=== PATIENT | female | born 1955 | race American Indian/Alaskan Native ===

== ENCOUNTER 2017-04-30 23:07 | Emergency (ER) | payer MEDICAID ==
[2017-04-30 23:52] LABS: Basophils % (Auto) 0.4 % (0.0-1.8); Eosinophils % (Auto) 0.6 % (0.0-4.3); Hematocrit 35.9 % (30.3-42.9); Hemoglobin 11.6 gm/dl (10.1-14.3); Mean Corpuscular HGB Conc 32 % (30-34); Mean Corpuscular Volume 70 fl (79-97); Platelet Count 130 K/mm3 (140-440); Red Blood Count 5.13 M/mm3 (3.65-5.03); Red Cell Distribution Width 16.3 % (13.2-15.2); White Blood Count 8.1 K/mm3 (4.5-11.0)
[2017-04-30 23:55] LABS: Mean Corpuscular Hemoglobin 23 pg (28-32)
[2017-05-01 00:53] LABS: Urine Drugs of Abuse Note Disclamer
[2017-05-01 01:08] LABS: Bacteria,Urine 2+ /HPF (Negative); Bilirubin,Urine NEG (Negative); Blood,Urine SM (Negative); Ketones,Urine NEG (Negative); Leukocyte Esterase,Urine MOD (Negative); Nitrite,Urine NEG (Negative); Protein,Urine <15 mg/dL mg/dL (Negative); Urobilinogen,Urine < 2.0 mg/dL (<2.0)
[2017-05-01 02:08] LABS: Anion Gap 15 mmol/L; BUN/Creatinine Ratio 10; Blood Urea Nitrogen 10 mg/dL (7-17); Calcium 8.4 mg/dL (8.4-10.2); Carbon Dioxide 30 mmol/L (22-30); Chloride 98.5 mmol/L (98-107); Glucose 102 mg/dL (65-100); Sodium 139 mmol/L (137-145)
--- NOTE | 2017-05-01 06:18 | Emergency Department Report ---
ED Psych HPI - General Chief Complaint: Psych Stated Complaint: MH Time Seen by Provider: 05/01/17 00:14 Source: patient Mode of arrival: Ambulatory Limitations: No Limitations - History of Present Illness Initial Comments: 61-year-old female with a past medical history of Parkinson's, diabetes, hypertension, and psychiatric disorder presents to the hospital with complaints of suicidal thoughts and not liking her current residence. Patient was just discharged from [facility] last week into a new snf. Patient had a disagreement with the snf provider and no longer wants to live there. Patient has been having suicidal ideation and hallucinations for "a long time and for many years". No physical complaints reported. Voices tell her to overdose or to run into traffic. - Related Data Home Medications Medication Instructions Recorded Confirmed Last Taken Divalproex ER [Depakote ER] 250 mg PO HS 10/19/13 05/01/17 Unknown Divalproex ER [Depakote ER] 500 mg PO BID 10/19/13 05/01/17 Unknown Simvastatin [Zocor] 40 mg PO QHS 10/19/13 05/01/17 Unknown metFORMIN [Glucophage] 1,000 mg PO BID 10/19/13 05/01/17 Unknown Allergies Allergy/AdvReac Type Severity Reaction Status Date / Time No Known Allergies Allergy Unverified 10/19/13 16:47 ED Review of Systems ROS: Stated complaint: MH Other details as noted in HPI Comment: All other systems reviewed and negative Other: Constitutional: No fevers chills or weight loss Eyes: No eye pain visual changes or discharge ENT: No ear pain or throat pain Neck: Denies pain Respiratory: Denies cough wheezing shortness of breath Cardiovascular: Denies chest pain, palpitations, syncope GI: Denies abdominal pain, nausea, vomiting, diarrhea Musculoskeletal: Denies back pain Skin: Denies rash, lesions, erythema Neurologic: Denies headache, numbness, weakness. Chronic tremor Psychiatric: As per HPI ED Past Medical Hx - Past Medical History Previous Medical History?: Yes Hx Hypertension: Yes Hx Diabetes: Yes Hx Psychiatric Treatment: Yes Additional medical history: high cholesterol - Social History Smoking Status: Never Smoker Substance Use Type: None - Medications Home Medications: Home Medications Medication Instructions Recorded Confirmed Last Taken Type Divalproex ER [Depakote ER] 250 mg PO HS 10/19/13 05/01/17 Unknown History Divalproex ER [Depakote ER] 500 mg PO BID 10/19/13 05/01/17 Unknown History Simvastatin [Zocor] 40 mg PO QHS 10/19/13 05/01/17 Unknown History metFORMIN [Glucophage] 1,000 mg PO BID 10/19/13 05/01/17 Unknown History ED Physical Exam - General Limitations: Other - Other Other exam information: General: No limitations, patient is alert in no acute distress Head exam: Atraumatic, normocephalic Eyes exam: Normal appearance ENT: Moist mucous membrane, normal oropharynx Neck exam: Normal inspection, full range of motion, no meningismus nontender Respiratory exam: Clear to auscultation bilateral, no wheezes, rales, crackles Cardiovascular: Normal rate and rhythm, normal heart sounds Abdomen: Soft, nondistended, and nontender, with normal bowel sounds, no rebound, or guarding Extremity: Full range of motion normal inspection no deformity Back: Normal Inspection, full range of motion, no tenderness Neurologic: Alert, oriented x3, cranial nerves intact, no motor or sensory deficit. Intention tremor noted Psychiatric: Cooperative Skin: Warm, dry, intact ED Course Vital Signs 04/30/17 05/01/17 05/01/17 23:19 08:35 19:05 Temperature 98.4 F 98.1 F 98.2 F Pulse Rate 84 86 72 Respiratory 18 18 18 Rate Blood Pressure 143/88 115/68 121/63 [Left] O2 Sat by Pulse 96 97 97 Oximetry - Reevaluation(s) Reevaluation #1: 05/01/17 06:20 We'll continue current meds awaiting mental health - Consultations Consultation #1: 05/01/17 06:20 Mental health evaluation pending ED Medical Decision Making - Lab Data Result diagrams: 04/30/17 23:21 04/30/17 23:21 Lab Results 04/30/17 04/30/17 04/30/17 Range/Units 00:47 23:21 23:21 WBC 8.1 (4.5-11.0) K/mm3 RBC 5.13 H (3.65-5.03) M/mm3 Hgb 11.6 (10.1-14.3) gm/dl Hct 35.9 (30.3-42.9) % MCV 70 L (79-97) fl MCH 23 L (28-32) pg MCHC 32 (30-34) % RDW 16.3 H (13.2-15.2) % Plt Count 130 L (140-440) K/mm3 Lymph % (Auto) 38.3 H (13.4-35.0) % Perry % (Auto) 10.7 H (0.0-7.3) % Eos % (Auto) 0.6 (0.0-4.3) % Baso % (Auto) 0.4 (0.0-1.8) % Lymph # 3.1 (1.2-5.4) K/mm3 Perry # 0.9 H (0.0-0.8) K/mm3 Eos # 0.0 (0.0-0.4) K/mm3 Baso # 0.0 (0.0-0.1) K/mm3 Seg Neutrophils % 50.0 (40.0-70.0) % Seg Neutrophils # 4.1 (1.8-7.7) K/mm3 Sodium 139 (137-145) mmol/L Potassium 4.0 (3.6-5.0) mmol/L Chloride 98.5 (98-107) mmol/L Carbon Dioxide 30 (22-30) mmol/L Anion Gap 15 mmol/L BUN 10 (7-17) mg/dL Creatinine 1.0 (0.7-1.2) mg/dL Estimated GFR > 60 ml/min BUN/Creatinine Ratio 10 % Glucose 102 H (65-100) mg/dL Calcium 8.4 (8.4-10.2) mg/dL Urine Color Straw (Yellow) Urine Turbidity Clear (Clear) Urine pH 7.0 (5.0-7.0) Ur Specific Haigler 1.003 (1.003-1.030) Urine Protein <15 mg/dl (Negative) mg/dL Urine Glucose (UA) Neg (Negative) mg/dL Urine Ketones Neg (Negative) mg/dL Urine Blood Sm (Negative) Urine Nitrite Neg (Negative) Urine Bilirubin Neg (Negative) Urine Urobilinogen < 2.0 (<2.0) mg/dL Ur Leukocyte Esterase Mod (Negative) Urine WBC (Auto) 6.0 (0.0-6.0) /HPF Urine RBC (Auto) 3.0 (0.0-6.0) /HPF U Epithel Cells (Auto) 1.0 (0-13.0) /HPF Urine Bacteria (Auto) 2+ (Negative) /HPF - Medical Decision Making Patient does not appear to have an acute psychiatric condition. Symptoms are chronic and ongoing and seems to be exacerbated by the fact that she does not want to live her current snf. Mental health evaluation pending to determine if a 1013 is necessary - Differential Diagnosis psychosis, secondary gain, suicidal ideation, hallucinations Critical Care Time: No Critical care attestation.: If time is entered above; I have spent that time in minutes in the direct care of this critically ill patient, excluding procedure time. ED Disposition Clinical Impression: Suicidal ideation, Hallucination, Medical clearance for psychiatric admission Disposition: DC/TX-65 PSY HOSP/PSY UNIT Is pt being admited?: No Condition: Stable Time of Disposition: 06:21 (awaiting eval)
[2017-05-01] MEDS ORDERED: ATIVAN ONE (07:32)
[2017-05-01] MEDS: ATIVAN PO ONE (07:48)
--- NOTE | 2017-05-01 14:48 | Consultation ---
History of Present Illness - Reason for Consult Consult date: 05/01/17 Reason for consult: Mental Health Evaluation Requesting physician: LUAN RYAN - Chief Complaint Chief complaint: "Hello" - History of Present Psychiatric Illness 61-year-old female with a past medical history of diabetes, hypertension, and a psychiatric disorder presents to the hospital with complaints of suicidal thoughts and having a problem with her current residence. Today patient is calm and cooperative during the assessment. She stated hearing voices telling her to kill herself. She stated that she would overdose on pills. She cannot confirm or deny past suicide attempts. Per her sister Ms Leia Schmitz at [phone] , she stated that her sister the patient has never been suicidal. She stated that her sister has a mental health dx of Schizophrenia and Bipolar DO. The patient would not elaborate on why she does not want to return to her current long term. She did deny any abuse at this long term. She denies HI's and VH' s. She denies sleep disturbance and a poor appetite. She denies recreational drug use and alcohol consumption (etoh). Per collateral information from Nuno Sena RN and Macy Wu from the [facility], the patient takes Depakote, receive the monthly Invega injection , and Benadryl. Her last injection was 04/30/2017. Also, she takes Metformin. The patient have not taken her PO medications in 2 days. Ms Leia Schmitz would like for her sister to be discharged to her residence when stable. Medications and Allergies Allergies Allergy/AdvReac Type Severity Reaction Status Date / Time No Known Allergies Allergy Unverified 10/19/13 16:47 Home Medications Medication Instructions Recorded Confirmed Last Taken Type Divalproex ER [Depakote ER] 250 mg PO HS 10/19/13 05/01/17 Unknown History Divalproex ER [Depakote ER] 500 mg PO BID 10/19/13 05/01/17 Unknown History Simvastatin [Zocor] 40 mg PO QHS 10/19/13 05/01/17 Unknown History metFORMIN [Glucophage] 1,000 mg PO BID 10/19/13 05/01/17 Unknown History Past psychiatric history - Past Medical History Past Medical History: diabetes Past Surgical History: No surgical history - past Psychiatric treatment and history Psych: Schizophrenia psychiatric treatment history: Collateral Information from Leia Schmitz the patient's sister - Multiple inpatient psy setting. Their mother had Bipolar DO. - Social History Social history: other (Reside at a long term) Mental Status Exam - Vital signs Last Vital Signs Temp 98.1 F 05/01/17 08:35 Pulse 86 05/01/17 08:35 Resp 18 05/01/17 08:35 BP 115/68 05/01/17 08:35 Pulse Ox 97 05/01/17 08:35 - Exam Narrative exam: MSE: Appearance: calm, cooperative Behavior: regular eye contact Speech: regular rate and tone Mood: "okay" Affect: labile Thought Process: circumstantial Thought Content: denies HI's and VH's Motor Activity: ambulatory, moderate tremors Cognition: A/O x3 Insight: limited Judgment: limited Results Result Diagrams: 04/30/17 23:21 04/30/17 23:21 Abnormal lab results 04/30/17 04/30/17 Range/Units 23:21 23:21 RBC 5.13 H (3.65-5.03) M/mm3 MCV 70 L (79-97) fl MCH 23 L (28-32) pg RDW 16.3 H (13.2-15.2) % Plt Count 130 L (140-440) K/mm3 Lymph % (Auto) 38.3 H (13.4-35.0) % Lamar % (Auto) 10.7 H (0.0-7.3) % Lamar # 0.9 H (0.0-0.8) K/mm3 Glucose 102 H (65-100) mg/dL All other labs normal. Assessment and Plan Assessment and plan: Impression: Per collateral information - Dx of Schizophrenia/Bipolar DO. Unspecified Mood DO with psy features. Today patient is calm and cooperative during the assessment. Patient is experiencing AH's. Patient endorsing SI's. Moderate tremors noted. DDx: R/O MDD, R/O Schizoaffective DO Recommendation/Plan: Continue 1013 with placement to inpatient psy services. Start Depakote 500 mg PO BID for mood and Benadryl 25 mg PO HS for EPS prevention. Patient receives the monthly Invega injection (234 mg). Her last injection 04/30/2017 by the [facility]. Macy Dyer of the [facility] can be reached at [phone].
[2017-05-01 15:54] LABS: Alkaline Phosphatase 70 units/L (35-129)
[2017-05-01 16:10] LABS: Alanine Aminotransferase 7 units/L (7-56)
[2017-05-01] MEDS: BENADRYL PO SCH (22:05)
[2017-05-01 22:27] VITALS: BP 121/63
== END 2017-05-01 22:33 ==
LOC: EEVIPCON 23:07 → ED 23:07
DX: R45.851 Suicidal ideations (principal); R44.3 Hallucinations, unspecified; I10 Essential (primary) hypertension; E11.9 Type 2 diabetes mellitus without complications; E78.00 Pure hypercholesterolemia, unspecified
CPT/HCPCS: 36415; 80048; 80164; 80307; 81001; 82962; 84075; 84450; 84460; 85025; 99285; G0480; 80320

== ENCOUNTER 2017-06-16 15:14 | Emergency (ER) | payer MEDICAID ==
[2017-06-16 15:47] LABS: Basophils % (Auto) 0.7 % (0.0-1.8); Eosinophils % (Auto) 0.8 % (0.0-4.3); Hematocrit 38.1 % (30.3-42.9); Hemoglobin 12.1 gm/dl (10.1-14.3); Mean Corpuscular HGB Conc 32 % (30-34); Mean Corpuscular Volume 70 fl (79-97); Platelet Count 229 K/mm3 (140-440); Red Blood Count 5.41 M/mm3 (3.65-5.03); Red Cell Distribution Width 17.1 % (13.2-15.2); White Blood Count 8.4 K/mm3 (4.5-11.0)
[2017-06-16 15:54] LABS: Mean Corpuscular Hemoglobin 22 pg (28-32)
[2017-06-16 16:08] LABS: Anion Gap 18 mmol/L; BUN/Creatinine Ratio 16; Blood Urea Nitrogen 13 mg/dL (7-17); Calcium 9.1 mg/dL (8.4-10.2); Carbon Dioxide 25 mmol/L (22-30); Chloride 102.2 mmol/L (98-107); Glucose 81 mg/dL (65-100); Potassium 4.2 mmol/L (3.6-5.0); Sodium 141 mmol/L (137-145)
[2017-06-16 16:09] LABS: Urine Drugs of Abuse Note Disclamer
[2017-06-16 16:18] LABS: Bacteria,Urine 1+ /HPF (Negative); Bilirubin,Urine NEG (Negative); Blood,Urine NEG (Negative); Ketones,Urine NEG (Negative); Leukocyte Esterase,Urine NEG (Negative); Nitrite,Urine NEG (Negative); Protein,Urine <15 mg/dL mg/dL (Negative); Urobilinogen,Urine < 2.0 mg/dL (<2.0); WBC,Urine < 1.0 /HPF (0.0-6.0)
[2017-06-16] MEDS ORDERED: ATIVAN IM ONE (20:13)
--- NOTE | 2017-06-16 20:15 | Emergency Department Report ---
ED Psych HPI - General Chief Complaint: Psych Stated Complaint: MENTAL HEALTH EVAUATION Time Seen by Provider: 06/16/17 19:16 Source: patient Mode of arrival: Ambulatory - History of Present Illness MD Complaint: other (hearing voices telling her to harm herself acutely psychotic) -: unknown Associated Psychiatric Symptoms: depression, racing thoughts, auditory hallucinations, delusions Quality: getting worse Improves With: none - Related Data Home Medications Medication Instructions Recorded Confirmed Last Taken Divalproex ER [Depakote ER] 250 mg PO HS 10/19/13 06/16/17 Unknown Divalproex ER [Depakote ER] 500 mg PO BID 10/19/13 06/16/17 Unknown Simvastatin [Zocor] 40 mg PO QHS 10/19/13 06/16/17 Unknown metFORMIN [Glucophage] 1,000 mg PO BID 10/19/13 06/16/17 Unknown Allergies Allergy/AdvReac Type Severity Reaction Status Date / Time No Known Allergies Allergy Verified 06/16/17 15:18 ED Review of Systems ROS: Stated complaint: MENTAL HEALTH EVAUATION Other details as noted in HPI Comment: All other systems reviewed and negative Constitutional: no symptoms reported Respiratory: no symptoms reported Cardiovascular: denies: chest pain, edema, syncope, paroxysmal nocturnal dyspnea Gastrointestinal: denies: diarrhea, hematochezia Genitourinary: denies: frequency, hematuria, discharge ED Past Medical Hx - Past Medical History Hx Hypertension: Yes Hx Diabetes: Yes Hx Psychiatric Treatment: Yes Additional medical history: high cholesterol - Social History Smoking Status: Never Smoker Substance Use Type: None - Medications Home Medications: Home Medications Medication Instructions Recorded Confirmed Last Taken Type Divalproex ER [Depakote ER] 250 mg PO HS 10/19/13 06/16/17 Unknown History Divalproex ER [Depakote ER] 500 mg PO BID 10/19/13 06/16/17 Unknown History Simvastatin [Zocor] 40 mg PO QHS 10/19/13 06/16/17 Unknown History metFORMIN [Glucophage] 1,000 mg PO BID 10/19/13 06/16/17 Unknown History ED Physical Exam - General Limitations: No Limitations General appearance: in no apparent distress - Head Head exam: Present: atraumatic, normocephalic, normal inspection - Eye Eye exam: Present: normal appearance, PERRL, EOMI - Respiratory Respiratory exam: Present: normal lung sounds bilaterally. Absent: respiratory distress, wheezes, rales, rhonchi, stridor - Cardiovascular Cardiovascular Exam: Present: normal rhythm - GI/Abdominal GI/Abdominal exam: Present: soft. Absent: tenderness, guarding, rebound - Back Exam Back exam: Present: normal inspection - Psychiatric Psychiatric exam: Present: anxious, other (acutely psychotic with auditory hallucinations) - Skin Skin exam: Present: warm ED Course Vital Signs 06/16/17 06/16/17 15:18 19:16 Temperature 97.9 F Pulse Rate 105 H 98 H Respiratory 20 16 Rate Blood Pressure 129/75 Blood Pressure 120/94 [Left] O2 Sat by Pulse 98 94 Oximetry ED Medical Decision Making - Lab Data Result diagrams: 06/16/17 15:32 06/16/17 15:32 - Medical Decision Making Valproic acid was therapeutic patient is medically cleared she has no medical complaints she has a supple neck no chest pain nonfocal neuro exam no abdominal complaints she was placed on 1013 given the nature of her persistent psychosis and delusions with hallucinations for further evaluation psychiatric Critical care attestation.: If time is entered above; I have spent that time in minutes in the direct care of this critically ill patient, excluding procedure time. ED Disposition Clinical Impression: Psychosis Disposition: DC/TX-65 PSY HOSP/PSY UNIT Is pt being admited?: Yes Condition: Fair Referrals: PRIMARY CARE, [Primary Care Provider] - 3-5 Days Time of Disposition: 20:24
--- NOTE | 2017-06-17 17:47 | Consultation ---
History of Present Illness - Reason for Consult Reason for consult: psych eval - Chief Complaint Chief complaint: CC:" I kept hearing voices." 61 year old BF with prior psych history of SCAD presents to [facility] for a psych eval. Patient notes that she's been hearing voices all her life. She's unable to give me details as to what brings her back to and what has worsened or changed. She presents disorganized and not able to focus on any one question at a time. She notes that she's depressed secondary to losing her grandmother 4 years ago but cannot answer current triggers. She alluded to overdosing on meds but couldn't explain if that was from years ago. She is denying etoh or illicit drug use. Medications and Allergies Allergies Allergy/AdvReac Type Severity Reaction Status Date / Time No Known Allergies Allergy Verified 06/16/17 15:18 Home Medications Medication Instructions Recorded Confirmed Last Taken Type Divalproex ER [Depakote ER] 250 mg PO HS 10/19/13 06/16/17 Unknown History Divalproex ER [Depakote ER] 500 mg PO BID 10/19/13 06/16/17 Unknown History Simvastatin [Zocor] 40 mg PO QHS 10/19/13 06/16/17 Unknown History metFORMIN [Glucophage] 1,000 mg PO BID 10/19/13 06/16/17 Unknown History Past psychiatric history - Past Medical History Past Medical History: diabetes (type II), hypertension, other (asthma per patient) - past Psychiatric treatment and history psychiatric treatment history: inpt: multiple inpt at [facility] for "all my life" outpt: dr. 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, not working, 5 children per pt, not dating, on SSD, suport from her Aunt- [phone]) Mental Status Exam - Vital signs Last Vital Signs Temp 97.9 F 06/16/17 15:18 Pulse 98 H 06/16/17 19:16 Resp 16 06/16/17 19:16 BP 120/94 06/16/17 19:16 Pulse Ox 94 06/16/17 19:16 - Exam Orientation: place, person Affect: anxious Mood: anxious Thought content: delusions Thought Process: Disorganized Perceptions: auditory Speech: normal rate and pattern Concentration: unable to pay attention Motor activity: extrapyramidal symptoms Level of consciousness: confused Memory: Recent Impaired, Remote Impaired Interaction: cooperative Mini mental status exam(if necessary): 18-23 Results Result Diagrams: 06/16/17 15:32 06/16/17 15:32 All other labs normal. Assessment and Plan Assessment and plan: 61 year old BF with prior psych history of SCAD presents to [facility] for a psych eval. Patient notes that she's been hearing voices all her life. She's unable to give me details as to what brings her back to and what has worsened or changed. patient presents with disorganized behavior and has history of possible SCAD after reading though prior notes. Per Dr. Moeller from last admitssion "Continue 1013 with placement to inpatient psy services. Start Depakote 500 mg PO BID for mood and Benadryl 25 mg PO HS for EPS prevention. Patient receives the monthly Invega injection (234 mg). Her last injection 04/30/2017 by the [facility]. Macy Wu of [facility] can be reached at [phone]." A/P 1- SCAD- resume depakote 500mg bid, need to check with collateral if invega sustenna has been recently given- , also restart cogentin 1mg po bid for eps, discussed risks, side effects, and benefits 2. dispo- patient will need referral to psych inpt placement
[2017-06-17] MEDS ORDERED: COGENTIN PO SCH (22:00)
[2017-06-17 23:22] VITALS: BP 113/83
== END 2017-06-17 19:35 ==
LOC: ED 15:14 → EEVIPCON 15:14 → ED 06-17 19:35
DX: F29 Unspecified psychosis not due to a substance or known physiological condition (principal); I10 Essential (primary) hypertension; E11.9 Type 2 diabetes mellitus without complications; E78.00 Pure hypercholesterolemia, unspecified; Z79.899 Other long term (current) drug therapy
CPT/HCPCS: 36415; 80048; 80164; 80307; 81001; 85025; 99285; G0480; 80320

== ENCOUNTER 2017-09-28 11:03 | Emergency (ER) | payer MEDICAID ==
[2017-09-28 11:57] VITALS: BP 106/62
== END 2017-09-28 11:10 | disposition left against medical advice (07) ==
LOC: ED 11:03
DX: Z53.21 Procedure and treatment not carried out due to patient leaving prior to being seen by health care provider (principal)
CPT/HCPCS: 82962

== ENCOUNTER 2017-12-10 13:10 | Emergency (ER) | payer MEDICAID ==
[2017-12-10 14:19] LABS: Basophils # (Auto) 0.2 K/mm3 (0.0-0.1); Eosinophils # (Auto) 0.1 K/mm3 (0.0-0.4); Eosinophils % (Auto) 1.3 % (0.0-4.3); Hematocrit 37.9 % (30.3-42.9); Lymphocytes # (Auto) 2.1 K/mm3 (1.2-5.4); Lymphocytes % (Auto) 30.1 % (13.4-35.0); Mean Corpuscular HGB Conc 32 % (30-34); Mean Corpuscular Volume 71 fl (79-97); Monocytes # (Auto) 0.5 K/mm3 (0.0-0.8); Monocytes % (Auto) 6.7 % (0.0-7.3); Platelet Count 186 K/mm3 (140-440); Red Blood Count 5.37 M/mm3 (3.65-5.03); Red Cell Distribution Width 17.3 % (13.2-15.2)
[2017-12-10 14:20] LABS: Mean Corpuscular Hemoglobin 22 pg (28-32)
[2017-12-10 14:24] LABS: Bacteria,Urine 1+ /HPF (Negative); Bilirubin,Urine NEG (Negative); Blood,Urine NEG (Negative); Color,Urine Yellow (Yellow); Mucus,Urine FEW /HPF; Protein,Urine <15 mg/dL mg/dL (Negative); Urobilinogen,Urine < 2.0 mg/dL (<2.0)
[2017-12-10 14:38] LABS: Amphetamine Screen,Urine PRESUMPTIVE NEGATIVE; Benzodiazepines Screen,Urine PRESUMPTIVE NEGATIVE; Cannabinoid Screen,Urine PRESUMPTIVE NEGATIVE; Cocaine Screen,Urine PRESUMPTIVE NEGATIVE; Methadone Screen,Urine PRESUMPTIVE NEGATIVE; Opiate Screen,Urine PRESUMPTIVE NEGATIVE
[2017-12-10 14:39] LABS: BUN/Creatinine Ratio 18; Blood Urea Nitrogen 16 mg/dL (7-17); Hemolysis Index 3
[2017-12-10] MEDS ORDERED: HALDOL IM PRN (14:56)
[2017-12-10] MEDS ORDERED: TYLENOL PO PRN (14:56)
--- NOTE | 2017-12-10 14:56 | Emergency Department Report ---
<ALLIE KOHLI - Last Filed: 12/10/17 16:12> ED General Adult HPI - General Chief complaint: Psych Stated complaint: PSYCH Time Seen by Provider: 12/10/17 14:45 Source: patient, RN notes reviewed Mode of arrival: Ambulatory Limitations: No Limitations - History of Present Illness Initial comments: This is a 62-year-old female, previously unknown to this provider. Has a past medical history of psychiatric disease, hypertension and diabetes. The patient presents to the ER with a complaint of hallucinations. She reports that she is hearing voices. She cannot describe if this is having exacerbating or relieving factors. She denies headache, neck pain, chest pain, abdominal pain, shortness of breath, and urinary symptoms. The patient is very emotionally volatile and labile, and she goes to intermittent periods of yelling and screaming, and then talking calmly. She is not homicidal or suicidal, and she does not have access to guns or firearms. She cannot tell me where she lives knows available for collateral information at this time -: unknown Radiation: other (per hpi) Severity scale (0 -10): 0 Quality: other (per hpi) Consistency: other (per hpi) Improves with: other (per hpi) Worsens with: other (per hpi) Associated Symptoms: other (per hpi). denies: confusion, chest pain, cough, diaphoresis, fever/chills, headaches, loss of appetite, malaise, nausea/vomiting , rash, seizure, shortness of breath, syncope, weakness - Related Data Home Medications Medication Instructions Recorded Confirmed Last Taken Divalproex ER [Depakote ER] 250 mg PO HS 10/19/13 12/10/17 Unknown Divalproex ER [Depakote ER] 500 mg PO BID 10/19/13 12/10/17 Unknown Simvastatin [Zocor] 40 mg PO QHS 10/19/13 12/10/17 Unknown metFORMIN [Glucophage] 1,000 mg PO BID 10/19/13 12/10/17 Unknown Allergies Allergy/AdvReac Type Severity Reaction Status Date / Time No Known Allergies Allergy Verified 06/16/17 15:18 ED Review of Systems ROS: Stated complaint: PSYCH Other details as noted in HPI Comment: All other systems reviewed and negative Constitutional: denies: fever Eyes: denies: vision change ENT: denies: epistaxis Respiratory: denies: cough Cardiovascular: denies: chest pain Gastrointestinal: denies: abdominal pain Genitourinary: denies: dysuria Musculoskeletal: denies: back pain Psychiatric: auditory hallucinations. denies: homicidal thoughts, suicidal thoughts ED Past Medical Hx - Past Medical History Hx Hypertension: Yes Hx Diabetes: Yes Hx Psychiatric Treatment: Yes Additional medical history: high cholesterol - Social History Smoking Status: Never Smoker Substance Use Type: None - Medications Home Medications: Home Medications Medication Instructions Recorded Confirmed Last Taken Type Divalproex ER [Depakote ER] 250 mg PO HS 10/19/13 12/10/17 Unknown History Divalproex ER [Depakote ER] 500 mg PO BID 10/19/13 12/10/17 Unknown History Simvastatin [Zocor] 40 mg PO QHS 10/19/13 12/10/17 Unknown History metFORMIN [Glucophage] 1,000 mg PO BID 10/19/13 12/10/17 Unknown History ED Physical Exam - General Limitations: Other (patient is psychotic and disorganized) General appearance: alert, obese - Head Head exam: Present: atraumatic, normocephalic - Eye Eye exam: Present: normal appearance, EOMI, other (visual acuity intact to finger counting, color perception, reading at a close distance). Absent: nystagmus - ENT ENT exam: Present: normal exam, normal orophraynx, mucous membranes moist, normal external ear exam - Neck Neck exam: Present: normal inspection, full ROM. Absent: tenderness, meningismus - Respiratory Respiratory exam: Present: normal lung sounds bilaterally. Absent: respiratory distress, chest wall tenderness - Cardiovascular Cardiovascular Exam: Present: regular rate, normal rhythm, normal heart sounds. Absent: bradycardia, tachycardia, irregular rhythm, systolic murmur, diastolic murmur, rubs, gallop - GI/Abdominal GI/Abdominal exam: Present: soft, normal bowel sounds. Absent: distended, tenderness, guarding, rebound, rigid, pulsatile mass - Extremities Exam Extremities exam: Present: normal inspection, full ROM. Absent: pedal edema, joint swelling, calf tenderness - Back Exam Back exam: Present: normal inspection, full ROM. Absent: tenderness, CVA tenderness (R), paraspinal tenderness, vertebral tenderness - Neurological Exam Neurological exam: Present: alert, oriented X3, CN II-XII intact, normal gait, other (Extraocular movements intact. Tongue midline. No facial droop. Facial sensation intact to light touch in the V1, V2, V3 distribution bilaterally. 5 and 5 strength in 4 extremities.. Sensation is intact to light touch in 4 extremities.). Absent: motor sensory deficit - Psychiatric Psychiatric exam: Present: agitated. Absent: homicidal ideation, suicidal ideation - Skin Skin exam: Present: warm, dry, intact, normal color. Absent: rash ED Course Vital Signs 12/10/17 13:32 Temperature 98.8 F Pulse Rate 80 Respiratory 16 Rate Blood Pressure 144/88 Blood Pressure 144/88 [Right] O2 Sat by Pulse 96 Oximetry - Reevaluation(s) Reevaluation #1: 12/10/17 16:12 Caries transferred to the oncoming physician, Dr. Flores to follow up on valproic acid level. If within normal limits, patient's valproic acid should be re- continued. ED Medical Decision Making - Lab Data Result diagrams: 12/10/17 14:03 12/10/17 14:03 Vital Signs 12/10/17 13:32 Temperature 98.8 F Pulse Rate 80 Respiratory 16 Rate Blood Pressure 144/88 Blood Pressure 144/88 [Right] O2 Sat by Pulse 96 Oximetry Labs 12/10/17 12/10/17 12/10/17 14:00 14:00 14:03 WBC RBC Hgb Hct MCV MCH MCHC RDW Plt Count Lymph % (Auto) [place] % (Auto) Eos % (Auto) Baso % (Auto) Lymph # [place] # Eos # Baso # Seg Neutrophils % Seg Neutrophils # Sodium Potassium Chloride Carbon Dioxide Anion Gap BUN Creatinine Estimated GFR BUN/Creatinine Ratio Glucose Calcium Total Creatine Kinase Urine Color Yellow Urine Turbidity Clear Urine pH 6.0 Ur Specific [place] 1.011 Urine Protein <15 mg/dl Urine Glucose (UA) Neg Urine Ketones Neg Urine Blood Neg Urine Nitrite Neg Urine Bilirubin Neg Urine Urobilinogen < 2.0 Ur Leukocyte Esterase Neg Urine WBC (Auto) 1.0 Urine RBC (Auto) 2.0 U Epithel Cells (Auto) 2.0 Urine Bacteria (Auto) 1+ Urine Mucus Few Salicylates < 0.3 L Urine Opiates Screen Presumptive negative Urine Methadone Screen Presumptive negative Acetaminophen Ur Barbiturates Screen Presumptive negative Ur Phencyclidine Scrn Presumptive negative Ur Amphetamines Screen Presumptive negative U Benzodiazepines Scrn Presumptive negative Urine Cocaine Screen Presumptive negative U Marijuana (THC) Screen Presumptive negative Drugs of Abuse Note Disclamer Plasma/Serum Alcohol 12/10/17 12/10/17 12/10/17 14:03 14:03 14:03 WBC RBC Hgb Hct MCV MCH MCHC RDW Plt Count Lymph % (Auto) [place] % (Auto) Eos % (Auto) Baso % (Auto) Lymph # [place] # Eos # Baso # Seg Neutrophils % Seg Neutrophils # Sodium 142 Potassium 4.2 Chloride 106.2 Carbon Dioxide 26 Anion Gap 14 BUN 16 Creatinine 0.9 Estimated GFR > 60 BUN/Creatinine Ratio 18 Glucose 100 Calcium 9.0 Total Creatine Kinase Urine Color Urine Turbidity Urine pH Ur Specific [place] Urine Protein Urine Glucose (UA) Urine Ketones Urine Blood Urine Nitrite Urine Bilirubin Urine Urobilinogen Ur Leukocyte Esterase Urine WBC (Auto) Urine RBC (Auto) U Epithel Cells (Auto) Urine Bacteria (Auto) Urine Mucus Salicylates Urine Opiates Screen Urine Methadone Screen Acetaminophen < 5.0 L Ur Barbiturates Screen Ur Phencyclidine Scrn Ur Amphetamines Screen U Benzodiazepines Scrn Urine Cocaine Screen U Marijuana (THC) Screen Drugs of Abuse Note Plasma/Serum Alcohol < 0.01 12/10/17 12/10/17 14:03 14:03 WBC 6.9 RBC 5.37 H Hgb 12.0 Hct 37.9 MCV 71 L MCH 22 L MCHC 32 RDW 17.3 H Plt Count 186 Lymph % (Auto) 30.1 [place] % (Auto) 6.7 Eos % (Auto) 1.3 Baso % (Auto) 3.0 H Lymph # 2.1 [place] # 0.5 Eos # 0.1 Baso # 0.2 H Seg Neutrophils % 58.9 Seg Neutrophils # 4.1 Sodium Potassium Chloride Carbon Dioxide Anion Gap BUN Creatinine Estimated GFR BUN/Creatinine Ratio Glucose Calcium Total Creatine Kinase 61 Urine Color Urine Turbidity Urine pH Ur Specific [place] Urine Protein Urine Glucose (UA) Urine Ketones Urine Blood Urine Nitrite Urine Bilirubin Urine Urobilinogen Ur Leukocyte Esterase Urine WBC (Auto) Urine RBC (Auto) U Epithel Cells (Auto) Urine Bacteria (Auto) Urine Mucus Salicylates Urine Opiates Screen Urine Methadone Screen Acetaminophen Ur Barbiturates Screen Ur Phencyclidine Scrn Ur Amphetamines Screen U Benzodiazepines Scrn Urine Cocaine Screen U Marijuana (THC) Screen Drugs of Abuse Note Plasma/Serum Alcohol - Medical Decision Making Differential diagnosis, including but not limited to: Psychosis, mood disorder, bipolar, medical clearance for psychiatric placement Assessment and plan: 62-year-old female with aggressive behavior, who does not demonstrate the ability to care for herself, who is volatile. Patient has episodes of intermittent, talking followed by explosive pressured speech. She is not homicidal or suicidal, but she clearly cannot care for herself. She appears to be quite disorganized. She is also expressing hallucinations. Therefore she is placed on a 1013. Psychiatry team has been informed. Laboratory studies thus far unremarkable, valproic acid level is pending. GCS of 15, physical exam unremarkable, walks with a steady gait. Critical care attestation.: If time is entered above; I have spent that time in minutes in the direct care of this critically ill patient, excluding procedure time. ED Disposition Disposition: [id number]/TX-65 PSY HOSP/PSY UNIT Is pt being admited?: No Does the pt Need Aspirin: No Condition: Good <MYESHA FLORES - Last Filed: 12/10/17 16:51> ED Medical Decision Making - Lab Data Result diagrams: 12/10/17 14:03 12/10/17 14:03 - Medical Decision Making Patient was turned over to my care at shift change at 1615 awaiting reevaluation and recheck of valproate level patient exhibits no signs or symptoms of toxicity she is having acute psychosis with gravely disabled she was loaded with valproate given her subtherapeutic level she is on 1013 for psychiatric evaluation for further admission.
[2017-12-10] MEDS: GLUCOPHAGE PO SCH (19:14)
[2017-12-10] MEDS: PRAVACHOL PO SCH (21:58)
[2017-12-10] MEDS ORDERED: NON-FORMULARY (Simvastatin 40 MG) PO SCH (22:00)
[2017-12-11 10:01] LABS: Alanine Aminotransferase 8 units/L (7-56); Lipase 18 units/L (13-60)
[2017-12-11] MEDS: GLUCOPHAGE PO SCH ×2 (10:43→18:30)
--- NOTE | 2017-12-11 15:33 | Consultation ---
History of Present Illness - Reason for Consult Consult date: 12/11/17 Reason for consult: Mental Health Evaluation Requesting physician: ALLIE KOHLI - Chief Complaint Chief complaint: "I am scared" - History of Present Psychiatric Illness 62 y.o. AA female presenting to the ER for bizarre behavior. Today the patient is calm, but delusional and tangent during the assessment. She stated being scared that an opossum maybe following her. She is adamant that the opossum is in her attic at her alf. During the interview, the patient had to be redirected several time to keep her on topic. She was able to tell me that she takes Zyprexa and Depakote. Also, she stated that the voices she hear is "bothering" her. She was not able to state what the voices was saying. No gestures of SI/HI's. She denies VH's. She could not confirm or deny recreational drug use and alcohol consumption (etoh). Medications and Allergies Allergies Allergy/AdvReac Type Severity Reaction Status Date / Time No Known Allergies Allergy Verified 06/16/17 15:18 Home Medications Medication Instructions Recorded Confirmed Last Taken Type Divalproex ER [Depakote ER] 250 mg PO HS 10/19/13 12/10/17 Unknown History Divalproex ER [Depakote ER] 500 mg PO BID 10/19/13 12/10/17 Unknown History Simvastatin [Zocor] 40 mg PO QHS 10/19/13 12/10/17 Unknown History metFORMIN [Glucophage] 1,000 mg PO BID 10/19/13 12/10/17 Unknown History Active Meds: Active Medications Acetaminophen (Tylenol) 650 mg PO Q6HR PRN PRN Reason: Pain Haloperidol Lactate (Haldol) 5 mg IM Q6HR PRN PRN Reason: Agitation Last Admin: 12/10/17 20:18 Dose: 5 mg Lorazepam (Ativan) 2 mg IM Q4HR PRN PRN Reason: Agitation Metformin HCl (Glucophage) 1,000 mg PO [facility]ID[facility]AB [facility] Last Admin: 12/11/17 10:43 Dose: 1,000 mg Pravastatin Sodium (Pravachol) 80 mg PO QHS [facility] Last Admin: 12/10/17 21:58 Dose: 80 mg Past psychiatric history - Past Medical History Past Medical History: diabetes Past Surgical History: Other - past Psychiatric treatment and history Psych: Schizophrenia psychiatric treatment history: Multiple inpatient psy settings. Cannot confirm or deny a fam psy hx. - Social History Social history: other (Reside at a alf) Mental Status Exam - Vital signs Last Vital Signs Temp 97.4 F L 12/11/17 09:19 Pulse 68 12/11/17 09:19 Resp 18 12/11/17 09:19 BP 178/94 12/11/17 09:19 Pulse Ox 99 12/11/17 09:19 - Exam Narrative exam: MSE: Appearance: calm, cooperative Behavior: regular eye contact Speech: regular rate and tone Mood: "okay" Affect: normal Thought Process: tangential Thought Content: no gestures of SI/HI's, denies VH's, delusional, paranoid Motor Activity: lying in bed Cognition: A/O x3 Insight: poor Judgment: poor Results Result Diagrams: 12/10/17 14:03 12/10/17 14:03 Abnormal lab results 12/10/17 Range/Units 15:09 Valproic Acid < 2.8 L (50-100) ug/mL All other labs normal. Assessment and Plan Assessment and plan: Impression: Unspecified Psychosis. Today the patient is calm, but delusional and tangent during the assessment. UDS is negative. DDx: R/O Bipolar DO, Schizophrenia Paranoid Type, R/O Schizoaffective DO Recommendation/Plan: Continue 1013 with placement to inpatient psy services. Start Depakote 500 mg PO BID for mood, Zyprexa 5 mg PO HS for psychosis, and Cogentin 0.5 mg PO HS for EPS prevention. Attempted to discuss possible metabolic side effects of Zyprexa with patient.
[2017-12-11] MEDS: ATIVAN IM PRN (15:57)
[2017-12-11] MEDS: COGENTIN PO SCH (22:42)
[2017-12-11] MEDS: PRAVACHOL PO SCH (23:27)
[2017-12-12] MEDS: GLUCOPHAGE PO SCH ×2 (08:48→16:55)
[2017-12-12 10:59] VITALS: BP 131/72
[2017-12-12] MEDS: ATIVAN IM PRN (12:20)
--- NOTE | 2017-12-12 14:14 | Progress Note ---
Subjective - Reason for Consult Consult date: 12/12/17 Reason for consult: Psychiatric Follow-up Evaluation - Chief Complaint Chief complaint: "" Patient is a 62 y.o. AA female presenting to the ER for bizarre behavior. Today the patient is calm, but delusional and tangent during the assessment. Mental Status Exam - Vital signs Last Vital Signs Temp 98.2 F 12/12/17 10:58 Pulse 88 12/12/17 10:58 Resp 20 12/12/17 10:58 BP 131/72 12/12/17 10:58 Pulse Ox 99 12/12/17 10:58 - Exam Narrative exam: Mental Status Exam: Appearance: calm, cooperative Behavior: regular eye contact Speech: regular rate and tone Mood: "okay" Affect: normal Thought Process: tangential Thought Content: no gestures of SI/HI's, denies VH's, delusional, paranoid Motor Activity: lying in bed Cognition: A/O x3 Insight: poor Judgment: poor Assessment and Plan Assessment and plan: Impression: Unspecified Psychosis. Today the patient is calm, but delusional and tangent during the assessment. UDS is negative. DDx: R/O Bipolar DO, Schizophrenia Paranoid Type, R/O Schizoaffective DO Recommendation/Plan: 1. Continue 1013 with placement to inpatient psychiatric services. 2. Continue Depakote 500 mg PO BID for mood, Zyprexa 5 mg PO HS for psychosis, and Cogentin 0.5 mg PO HS for EPS prevention. Attempted to discuss possible metabolic side effects of Zyprexa with patient. 3. Will monitor mood, psychosis, sleep, appetite, compliance, and side effects.
[2017-12-12] MEDS: COGENTIN PO SCH (22:26)
[2017-12-12] MEDS: PRAVACHOL PO SCH (22:27)
== END 2017-12-13 00:45 ==
LOC: ED 13:10 → EEVIPCON 13:10 → ED 12-13 00:45
DX: F20.9 Schizophrenia, unspecified (principal); E78.00 Pure hypercholesterolemia, unspecified; I10 Essential (primary) hypertension; E11.9 Type 2 diabetes mellitus without complications; Z79.899 Other long term (current) drug therapy
CPT/HCPCS: 36415; 80048; 80164; 80307; 81001; 82150; 82550; 82962; 83690; 84075; 84450; 84460; 85025; 96372; 99285; A9270; G0480; J1630; J2060; 80320

== ENCOUNTER 2018-03-02 17:45 | Emergency (ER) | payer MEDICAID ==
[2018-03-02] MEDS ORDERED: ATIVAN IM ONE (18:24)
[2018-03-02] MEDS ORDERED: ATIVAN ONE (18:28)
--- NOTE | 2018-03-02 18:29 | Emergency Department Report ---
ED Psych HPI - General Chief Complaint: Medical Clearance Stated Complaint: MENTAL HEALTH EVAL Time Seen by Provider: 03/02/18 18:16 Source: family Mode of arrival: Ambulatory - History of Present Illness Initial Comments: Patient is 62 years old female with history of unspecified psychosis. Patient brought to the ER accompanied by her caregiver. Patient is manic, hyperverbal and is in obvious acute psychosis. Patient stating that a black bobcat attack her last night but patient does not have any laceration or abrasion. Patient is currently denying homicidal or suicidal ideation but was obvious paranoia and delusions. Patient was seen here 2 months ago and she was given Cogentin and Depakote and Zyprexa. Complaint: altered mental status - Related Data Home Medications Medication Instructions Recorded Confirmed Last Taken Divalproex ER [Depakote ER] 250 mg PO HS 10/19/13 12/10/17 Unknown Divalproex ER [Depakote ER] 500 mg PO BID 10/19/13 12/10/17 Unknown Simvastatin [Zocor] 40 mg PO QHS 10/19/13 12/10/17 Unknown metFORMIN [Glucophage] 1,000 mg PO BID 10/19/13 12/10/17 Unknown Allergies Allergy/AdvReac Type Severity Reaction Status Date / Time No Known Allergies Allergy Verified 06/16/17 15:18 ED Review of Systems ROS: Stated complaint: MENTAL HEALTH EVAL Other details as noted in HPI Comment: All other systems reviewed and negative Constitutional: denies: chills, fever Respiratory: denies: cough, orthopnea Gastrointestinal: denies: abdominal pain, nausea, vomiting Neurological: denies: headache, weakness ED Past Medical Hx - Past Medical History Previous Medical History?: Yes Hx Hypertension: Yes Hx Diabetes: Yes Hx Psychiatric Treatment: Yes (bipolar, schizophrenia, depression) Additional medical history: high cholesterol - Surgical History Past Surgical History?: No - Social History Smoking Status: Never Smoker Substance Use Type: None - Medications Home Medications: Home Medications Medication Instructions Recorded Confirmed Last Taken Type Divalproex ER [Depakote ER] 250 mg PO HS 10/19/13 12/10/17 Unknown History Divalproex ER [Depakote ER] 500 mg PO BID 10/19/13 12/10/17 Unknown History Simvastatin [Zocor] 40 mg PO QHS 10/19/13 12/10/17 Unknown History metFORMIN [Glucophage] 1,000 mg PO BID 10/19/13 12/10/17 Unknown History ED Physical Exam - General Limitations: No Limitations General appearance: alert, anxious - Head Head exam: Present: atraumatic, normocephalic, normal inspection - Eye Eye exam: Present: normal appearance, PERRL - ENT ENT exam: Present: normal exam, normal orophraynx, mucous membranes moist - Neck Neck exam: Present: normal inspection, full ROM. Absent: tenderness, meningismus, lymphadenopathy, thyromegaly - Respiratory Respiratory exam: Present: normal lung sounds bilaterally. Absent: respiratory distress, wheezes, rales, rhonchi, stridor, chest wall tenderness, accessory muscle use, decreased breath sounds, prolonged expiratory - Cardiovascular Cardiovascular Exam: Present: regular rate, normal rhythm, normal heart sounds - GI/Abdominal GI/Abdominal exam: Present: soft, normal bowel sounds. Absent: distended, tenderness, guarding, rebound, rigid, organomegaly, mass, bruit, pulsatile mass , hernia - Extremities Exam Extremities exam: Present: normal inspection, full ROM, normal capillary refill - Back Exam Back exam: Present: normal inspection, full ROM. Absent: tenderness, CVA tenderness (R), CVA tenderness (L) - Neurological Exam Neurological exam: Present: alert, normal gait, reflexes normal - Psychiatric Psychiatric exam: Present: agitated, anxious, manic. Absent: flat affect, homicidal ideation, suicidal ideation - Skin Skin exam: Present: warm, intact ED Course Vital Signs 03/02/18 03/02/18 17:57 19:24 Temperature 99.0 F Pulse Rate 91 H Respiratory 17 17 Rate Blood Pressure 169/94 O2 Sat by Pulse 98 Oximetry ED Medical Decision Making - Lab Data Result diagrams: 03/02/18 19:06 03/02/18 19:06 Critical care attestation.: If time is entered above; I have spent that time in minutes in the direct care of this critically ill patient, excluding procedure time. ED Disposition Clinical Impression: Acute psychosis Disposition: [id number]/TX-65 PSY HOSP/PSY UNIT Is pt being admited?: No Condition: Stable Referrals: PRIMARY CARE, [Primary Care Provider] - 3-5 Days
[2018-03-02 18:34] LABS: Amphetamine Screen,Urine PRESUMPTIVE NEGATIVE; Benzodiazepines Screen,Urine PRESUMPTIVE NEGATIVE; Bilirubin,Urine NEG (Negative); Blood,Urine SM (Negative); Cannabinoid Screen,Urine PRESUMPTIVE NEGATIVE; Cocaine Screen,Urine PRESUMPTIVE NEGATIVE; Color,Urine Straw (Yellow); Methadone Screen,Urine PRESUMPTIVE NEGATIVE; Opiate Screen,Urine PRESUMPTIVE NEGATIVE; Protein,Urine <15 mg/dL mg/dL (Negative); Urobilinogen,Urine < 2.0 mg/dL (<2.0)
[2018-03-02 18:35] LABS: Bacteria,Urine 1+ /HPF (Negative); WBC,Urine < 1.0 /HPF (0.0-6.0)
[2018-03-02 19:25] LABS: Basophils # (Auto) 0.1 K/mm3 (0.0-0.1); Basophils % (Auto) 0.7 % (0.0-1.8); Eosinophils # (Auto) 0.1 K/mm3 (0.0-0.4); Eosinophils % (Auto) 1.7 % (0.0-4.3); Hematocrit 34.9 % (30.3-42.9); Hemoglobin 11.3 gm/dl (10.1-14.3); Lymphocytes # (Auto) 1.9 K/mm3 (1.2-5.4); Lymphocytes % (Auto) 24.9 % (13.4-35.0); Mean Corpuscular HGB Conc 32 % (30-34); Monocytes # (Auto) 0.9 K/mm3 (0.0-0.8); Monocytes % (Auto) 11.1 % (0.0-7.3); Platelet Count 291 K/mm3 (140-440); Red Blood Count 5.02 M/mm3 (3.65-5.03); Red Cell Distribution Width 17.5 % (13.2-15.2)
[2018-03-02 19:35] LABS: Mean Corpuscular Hemoglobin 23 pg (28-32); Mean Corpuscular Volume 70 fl (79-97)
[2018-03-02 19:41] LABS: BUN/Creatinine Ratio 18; Blood Urea Nitrogen 14 mg/dL (7-17); Calcium 8.8 mg/dL (8.4-10.2); Hemolysis Index 10
[2018-03-02 19:42] LABS: Alanine Aminotransferase 12 units/L (7-56); Albumin 3.9 g/dL (3.9-5)
[2018-03-02 19:49] LABS: Bilirubin,Direct < 0.2 mg/dL (0-0.2)
[2018-03-03] MEDS ORDERED: ATIVAN IM PRN (08:00)
[2018-03-03] MEDS ORDERED: GEODON IM PRN (08:01)
[2018-03-03] MEDS: GEODON PO SCH ×2 (10:03→22:02)
[2018-03-03] MEDS: PRAVACHOL PO SCH (12:08)
--- NOTE | 2018-03-03 14:31 | Consultation ---
History of Present Illness - Reason for Consult Consult date: 03/03/18 Reason for consult: Mental Health Evaluation Requesting physician: RAFY BLUM - Chief Complaint Chief complaint: "The bobcat is after me" - History of Present Psychiatric Illness 62 y.o. AA female presenting to the ER for unspecified psychosis. Today the patient is calm, but tangent during the assessment. She was not lucid nor organized with her thoughts throughout the interview. She rambles on about a "bobcat" is following her. She had to be redirected several times to keep her on topic. She was observed being redirected by staff to stay in her room. The patient is a poor historian at this time. Medications and Allergies Allergies Allergy/AdvReac Type Severity Reaction Status Date / Time No Known Allergies Allergy Verified 06/16/17 15:18 Home Medications Medication Instructions Recorded Confirmed Last Taken Type Divalproex ER [Depakote ER] 250 mg PO HS 10/19/13 03/03/18 Unknown History Divalproex ER [Depakote ER] 500 mg PO BID 10/19/13 03/03/18 03/03/18 History Simvastatin [Zocor] 40 mg PO QHS 10/19/13 03/03/18 Unknown History metFORMIN [Glucophage] 1,000 mg PO BID 10/19/13 03/03/18 Unknown History Active Meds: Active Medications Divalproex Sodium (Depakote Er) 500 mg PO BID [facility] Last Admin: 03/03/18 10:03 Dose: 500 mg Lorazepam (Ativan) 1 mg IM Q12H PRN PRN Reason: Agitation Last Admin: 03/03/18 08:52 Dose: 1 mg Pravastatin Sodium (Pravachol) 40 mg PO QDAY [facility] Last Admin: 03/03/18 12:08 Dose: Not Given Ziprasidone (Geodon) 40 mg PO BID [facility] Last Admin: 03/03/18 10:03 Dose: 40 mg Ziprasidone (Geodon) 10 mg IM Q12H PRN PRN Reason: Agitation Past psychiatric history - Past Medical History Past Medical History: diabetes, hyperthyroidism Past Surgical History: No surgical history - past Psychiatric treatment and history psychiatric treatment history: Several inpatient psy settings. She could not confirm or deny a fam psy hx. - Social History Social history: lives with family Mental Status Exam - Vital signs Last Vital Signs Temp 97.4 F L 03/03/18 07:32 Pulse 89 03/03/18 07:32 Resp 18 03/03/18 07:33 BP 172/107 03/03/18 07:32 Pulse Ox 98 03/03/18 07:33 - Exam Narrative exam: MSE: Appearance: calm Behavior: regular eye contact Speech: regular rate and tone Mood: perseverative Affect: congruent to mood Thought Process: tangential, disorganized Thought Content: no gestures of SI/HI's, delusional, paranoid Motor Activity: lying in bed Cognition: A/O x 3 Insight: poor Judgment: poor Results Result Diagrams: 03/02/18 19:06 03/02/18 19:06 Abnormal lab results 03/02/18 03/02/18 03/02/18 Range/Units 19:06 19:06 19:06 MCV (79-97) fl MCH (28-32) pg RDW (13.2-15.2) % [place] % (Auto) (0.0-7.3) % [place] # (0.0-0.8) K/mm3 Glucose 112 H (65-100) mg/dL POC Glucose (70-105) Salicylates < 0.3 L (2.8-20.0) mg/dL Acetaminophen < 5.0 L (10.0-30.0) ug/mL 03/02/18 03/03/18 Range/Units 19:06 08:45 MCV 70 L (79-97) fl MCH 23 L (28-32) pg RDW 17.5 H (13.2-15.2) % [place] % (Auto) 11.1 H (0.0-7.3) % [place] # 0.9 H (0.0-0.8) K/mm3 Glucose (65-100) mg/dL POC Glucose 146 H (70-105) Salicylates (2.8-20.0) mg/dL Acetaminophen (10.0-30.0) ug/mL All other labs normal. Assessment and Plan Assessment and plan: Impression: Unspecified Psychosis. Today the patient is calm, but tangent during the assessment. UDS is negative. DDx: Schizophrenia, Bipolar DO with psychosis, R/O Schizoaffective DO Recommendation/Plan: Continue 1013 with placement to inpatient psy services. Continue Geodon 40 mg PO BID for psychosis, Depakote 500 mg PO BID for mood, and Cogentin 0.5 mg BID for EPS prevention. Attempted to discuss metabolic side effects of Geodon with patient.
[2018-03-03 15:02] LABS: Lipase 26 units/L (13-60)
[2018-03-03] MEDS ORDERED: WATER FOR INJ (PF) ONE (17:55)
[2018-03-03] MEDS: COGENTIN PO SCH (22:02)
--- NOTE | 2018-03-04 10:34 | Progress Note ---
Subjective - Reason for Consult Consult date: 03/04/18 Reason for consult: Psychiatry Follow-up - Chief Complaint Chief complaint: "I have money problems" 62 y.o. AA female presenting to the ER for unspecified psychosis.Today the patient is calm, but still tangent during the assessment. The patient is adamant that a family member owe her money. She mentioned several people who maybe spending her money. I had to interject several times to calm the patient down. She was asked about a bobcat she mentioned per her initial assessment, she stated, "No issues with the bobcat." She denies SI/HI's and AVH's. She denies any side effects of her medications. Mental Status Exam - Vital signs Last Vital Signs Temp 98.8 F 03/03/18 21:15 Pulse 68 03/03/18 21:15 Resp 16 03/03/18 21:15 BP 139/82 03/03/18 21:15 Pulse Ox 98 03/03/18 21:15 - Exam Narrative exam: MSE: Appearance: calm Behavior: regular eye contact Speech: regular rate and tone Mood: perseverative Affect: congruent to mood Thought Process: tangential Thought Content: denies SI/HI' and AVH's, delusional Motor Activity: lying in bed Cognition: A/O x 3 Insight: variable Judgment: variable Assessment and Plan Impression: Unspecified Psychosis. Today the patient is calm, but still tangent during the assessment. UDS is negative. DDx: Schizophrenia, Bipolar DO with psychosis, R/O Schizoaffective DO Recommendation/Plan: Continue 1013 with placement to inpatient psy services. Continue Geodon 40 mg PO BID for psychosis, Depakote 500 mg PO BID for mood, and Cogentin 0.5 mg BID for EPS prevention. Attempted to discuss metabolic side effects of Geodon with patient.
[2018-03-04] MEDS: PRAVACHOL PO SCH (10:41)
[2018-03-04] MEDS: GEODON PO SCH ×2 (10:41→22:06)
[2018-03-04] MEDS: COGENTIN PO SCH ×2 (10:41→22:05)
[2018-03-05 08:40] VITALS: BP 149/84
[2018-03-05] MEDS: COGENTIN PO SCH (10:30)
[2018-03-05] MEDS: GEODON PO SCH (10:30)
--- NOTE | 2018-03-05 13:44 | Progress Note ---
Subjective - Reason for Consult Consult date: 03/05/18 Reason for consult: Psychiatry Follow-up - Chief Complaint Chief complaint: "The latonya is here" 62 y.o. AA female presenting to the ER for unspecified psychosis. Today the patient is cooperative, but still tangent during the assessment. She stated that the latonya came to the hospital and attacked her (delusional). Per the staff, the patient tried to elope earlier this morning. No gestures of SI/HI's. No indications of side effects of her medications. Mental Status Exam - Vital signs Last Vital Signs Temp 98.2 F 03/05/18 08:00 Pulse 81 03/05/18 08:00 Resp 20 03/05/18 08:00 BP 149/84 03/05/18 08:00 Pulse Ox 97 03/05/18 08:00 - Exam Narrative exam: MSE: Appearance: cooperative Behavior: regular eye contact Speech: regular rate and tone Mood: perseverative Affect: congruent to mood Thought Process: tangential Thought Content: denies SI/HI' and AVH's, delusional, paranoid Motor Activity: lying in bed Cognition: A/O x 3 Insight: poor Judgment: poor Assessment and Plan Impression: Unspecified Psychosis. Today the patient is cooperative, but still tangent during the assessment.UDS is negative. DDx: Schizophrenia, Bipolar DO with psychosis, R/O Schizoaffective DO Recommendation/Plan: Continue 1013 with placement to [facility] today. Continue Geodon 40 mg PO BID for psychosis, Depakote 500 mg PO BID for mood, and Cogentin 0.5 mg BID for EPS prevention. Attempted to discuss metabolic side effects of Geodon with patient.
== END 2018-03-05 11:51 ==
LOC: ED 17:45 → EEVIPCON 17:45 → ED 03-05 11:51
DX: F23 Brief psychotic disorder (principal); I10 Essential (primary) hypertension; E11.9 Type 2 diabetes mellitus without complications; F31.9 Bipolar disorder, unspecified; F20.9 Schizophrenia, unspecified; E78.00 Pure hypercholesterolemia, unspecified
CPT/HCPCS: 36415; 80048; 80074; 80164; 80307; 81001; 82150; 82962; 83690; 85025; 96372; 99285; A9270; G0480; J2060; J3486; 80320

== ENCOUNTER 2020-12-12 09:32 | Emergency (ER) | payer MEDICAID ==
--- NOTE | 2020-12-12 10:16 | Emergency Department Report ---
Blank Doc - Documentation Documentation: 65-year-old female that brought by EMS from [facility] for visual lantigua ucination. Patient stated has anxiety because she seen tigers and snakes. Patient otherwise denies any other complaints or symptoms. Patient has history of psychiatric. Denies any suicidal homicidal ideation 1- This initial assessment/diagnostic orders/clinical plan/ treatment(s) is/are subject to change based on pt's health status, clinical progression and re- assessment by fellow clinical providers in the ED. Further treatment and workup at subsequent clinical provers discretion. Patient/guardians urged not to elope from ED as their condition may be serious if not clinically assessed and managed. 2-psych work-up
[2020-12-12 10:52] LABS: Basophils % (Auto) 0.4 % (0.0-1.8); Eosinophils # (Auto) 0.1 K/mm3 (0.0-0.4); Eosinophils % (Auto) 0.9 % (0.0-4.3); Hemoglobin 12.7 gm/dl (10.1-14.3); Lymphocytes # (Auto) 1.5 K/mm3 (1.2-5.4); Lymphocytes % (Auto) 23.7 % (13.4-35.0); Mean Corpuscular HGB Conc 33 % (30-34); Mean Corpuscular Volume 71 fl (79-97); Monocytes # (Auto) 0.6 K/mm3 (0.0-0.8); Monocytes % (Auto) 8.8 % (0.0-7.3); Platelet Count 176 K/mm3 (140-440); Red Blood Count 5.47 M/mm3 (3.65-5.03); Red Cell Distribution Width 16.8 % (13.2-15.2)
[2020-12-12 10:54] LABS: Alanine Aminotransferase 8 units/L (7-56); Albumin 3.8 g/dL (3.9-5); BUN/Creatinine Ratio 16; Blood Urea Nitrogen 13 mg/dL (7-17); Calcium 9.6 mg/dL (8.4-10.2); Hemolysis Index 22
--- NOTE | 2020-12-12 11:20 | Emergency Department Report ---
HPI - General Chief Complaint: Psych Time Seen by Provider: 12/12/20 10:14 - HPI HPI: This is a 65-year-old -[place] Islander female presents to the emergency department from [place] for a mental health evaluation. The patient says that she has been seeing snakes, lizards, and tigers "outside of my duplex." She says that the "tigers are coming [place] from the mountains." The patient has a history of schizophrenia but denies that these animals are hallucinations. She keeps repeating that someone else at her facility "sees them to, he will tell you." The patient also has a history of hypertension, diabetes, high cholesterol. She has some chronic tremors that she says is from Parkinson's disease. I do not see that diagnosis from her 1 previous visit in 2018, but it is possible she was diagnosed in the interim. She denies any suicidal or ho micidal ideations. ED Past Medical Hx - Past Medical History Hx Hypertension: Yes Hx Diabetes: Yes Hx Psychiatric Treatment: Yes (bipolar, schizophrenia, depression) Additional medical history: high cholesterol - Social History Smoking Status: Never Smoker Substance Use Type: None - Medications Home Medications: Home Medications Medication Instructions Recorded Confirmed Last Taken Type Divalproex ER [Depakote ER] 250 mg PO HS 10/19/13 03/03/18 Unknown History Divalproex ER [Depakote ER] 500 mg PO BID 10/19/13 03/03/18 03/03/18 History Simvastatin (Nf) [Zocor] 40 mg PO QHS 10/19/13 03/03/18 Unknown History metFORMIN [Glucophage] 1,000 mg PO BID 10/19/13 03/03/18 Unknown History ED Review of Systems ROS: Stated complaint: ANXIETY Other details as noted in HPI Comment: All other systems reviewed and negative Constitutional: denies: chills, fever Eyes: denies: eye pain, vision change ENT: denies: ear pain, throat pain Respiratory: denies: cough, shortness of breath Cardiovascular: denies: chest pain, palpitations Gastrointestinal: denies: abdominal pain, vomiting Musculoskeletal: denies: back pain, arthralgia Neurological: denies: headache, weakness Psychiatric: other (Hallucinations versus delusions). denies: homicidal though ts, suicidal thoughts Physical Exam - Physical Exam Vital Signs: Vital Signs 12/12/20 10:12 Temperature 98.1 F Pulse Rate 65 Respiratory 20 Rate Blood Pressure 109/93 O2 Sat by Pulse 100 Oximetry Physical Exam: GENERAL: The patient is well-developed well-nourished. HENT: Normocephalic. Atraumatic. Patient has moist mucous membranes. EYES: Extraocular motions are intact. NECK: Supple. Trachea is midline. CHEST/LUNGS: Clear to auscultation. There is no respiratory distress noted. HEART/CARDIOVASCULAR: Regular. There is no tachycardia. There is no murmur. ABDOMEN: Abdomen is soft, nontender. Patient has normal bowel sounds. There is no abdominal distention. SKIN: Skin is warm and dry. NEURO: The patient is awake, alert, and cooperative. Cranial nerves II through XII grossly intact. Patient has upper extremity tremors. MUSCULOSKELETAL: There is no tenderness or deformity. There is no limitation range of motion. ED Course Vital Signs 12/12/20 10:12 Temperature 98.1 F Pulse Rate 65 Respiratory 20 Rate Blood Pressure 109/93 O2 Sat by Pulse 100 Oximetry ED Medical Decision Making - Lab Data Result diagrams: 12/12/20 10:16 12/12/20 10:16 Lab Results 12/12/20 12/12/20 12/12/20 Range/Units 10:16 10:16 10:16 WBC 6.2 (4.5-11.0) K/mm3 RBC 5.47 H (3.65-5.03) M/mm3 Hgb 12.7 (10.1-14.3) gm/dl Hct 39.0 (30.3-42.9) % MCV 71 L (79-97) fl MCH 23 L (28-32) pg MCHC 33 (30-34) % RDW 16.8 H (13.2-15.2) % Plt Count 176 (140-440) K/mm3 Lymph % (Auto) 23.7 (13.4-35.0) % [place] % (Auto) 8.8 H (0.0-7.3) % Eos % (Auto) 0.9 (0.0-4.3) % Baso % (Auto) 0.4 (0.0-1.8) % Lymph # (Auto) 1.5 (1.2-5.4) K/mm3 [place] # (Auto) 0.6 (0.0-0.8) K/mm3 Eos # (Auto) 0.1 (0.0-0.4) K/mm3 Baso # (Auto) 0.0 (0.0-0.1) K/mm3 Seg Neutrophils % 66.2 (40.0-70.0) % Seg Neutrophils # 4.1 (1.8-7.7) K/mm3 Sodium 139 (137-145) mmol/L Potassium 4.1 (3.6-5.0) mmol/L Chloride 100.2 (98-107) mmol/L Carbon Dioxide 30 (22-30) mmol/L Anion Gap 13 mmol/L BUN 13 (7-17) mg/dL Creatinine 0.8 (0.6-1.2) mg/dL Estimated GFR > 60 ml/min BUN/Creatinine Ratio 16 % Glucose 182 H (65-100) mg/dL Calcium 9.6 (8.4-10.2) mg/dL Total Bilirubin 0.20 (0.1-1.2) mg/dL AST 15 (5-40) units/L ALT 8 (7-56) units/L Alkaline Phosphatase 90 (35-129) units/L Total Protein 6.9 (6.3-8.2) g/dL Albumin 3.8 L (3.9-5) g/dL Albumin/Globulin Ratio 1.2 % Urine Color (Yellow) Urine Turbidity (Clear) Urine pH (5.0-7.0) Ur Specific Ira (1.003-1.030) Urine Protein (Negative) mg/dL Urine Glucose (UA) (Negative) mg/dL Urine Ketones (Negative) mg/dL Urine Blood (Negative) Urine Nitrite (Negative) Urine Bilirubin (Negative) Urine Urobilinogen (<2.0) mg/dL Ur Leukocyte Esterase (Negative) Urine WBC (Auto) (0.0-6.0) /HPF Urine RBC (Auto) (0.0-6.0) /HPF U Epithel Cells (Auto) (0-13.0) /HPF Urine Bacteria (Auto) (Negative) /HPF Urine Mucus /HPF Salicylates < 0.3 L (2.8-20.0) mg/dL Urine Opiates Screen Urine Methadone Screen Acetaminophen (10.0-30.0) ug/mL Ur Barbiturates Screen Ur Phencyclidine Scrn Ur Amphetamines Screen U Benzodiazepines Scrn Urine Cocaine Screen U Marijuana (THC) Screen Drugs of Abuse Note Plasma/Serum Alcohol (0-0.07) % 12/12/20 12/12/20 12/12/20 Range/Units 10:16 10:16 Unknown WBC (4.5-11.0) K/mm3 RBC (3.65-5.03) M/mm3 Hgb (10.1-14.3) gm/dl Hct (30.3-42.9) % MCV (79-97) fl MCH (28-32) pg MCHC (30-34) % RDW (13.2-15.2) % Plt Count (140-440) K/mm3 Lymph % (Auto) (13.4-35.0) % [place] % (Auto) (0.0-7.3) % Eos % (Auto) (0.0-4.3) % Baso % (Auto) (0.0-1.8) % Lymph # (Auto) (1.2-5.4) K/mm3 [place] # (Auto) (0.0-0.8) K/mm3 Eos # (Auto) (0.0-0.4) K/mm3 Baso # (Auto) (0.0-0.1) K/mm3 Seg Neutrophils % (40.0-70.0) % Seg Neutrophils # (1.8-7.7) K/mm3 Sodium (137-145) mmol/L Potassium (3.6-5.0) mmol/L Chloride (98-107) mmol/L Carbon Dioxide (22-30) mmol/L Anion Gap mmol/L BUN (7-17) mg/dL Creatinine (0.6-1.2) mg/dL Estimated GFR ml/min BUN/Creatinine Ratio % Glucose (65-100) mg/dL Calcium (8.4-10.2) mg/dL Total Bilirubin (0.1-1.2) mg/dL AST (5-40) units/L ALT (7-56) units/L Alkaline Phosphatase (35-129) units/L Total Protein (6.3-8.2) g/dL Albumin (3.9-5) g/dL Albumin/Globulin Ratio % Urine Color Yellow (Yellow) Urine Turbidity Clear (Clear) Urine pH 5.0 (5.0-7.0) Ur Specific Ira 1.018 (1.003-1.030) Urine Protein <15 mg/dl (Negative) mg/dL Urine Glucose (UA) Neg (Negative) mg/dL Urine Ketones Neg (Negative) mg/dL Urine Blood Neg (Negative) Urine Nitrite Neg (Negative) Urine Bilirubin Neg (Negative) Urine Urobilinogen 4.0 (<2.0) mg/dL Ur Leukocyte Esterase Neg (Negative) Urine WBC (Auto) 1.0 (0.0-6.0) /HPF Urine RBC (Auto) 3.0 (0.0-6.0) /HPF U Epithel Cells (Auto) 1.0 (0-13.0) /HPF Urine Bacteria (Auto) 1+ (Negative) /HPF Urine Mucus Few /HPF Salicylates (2.8-20.0) mg/dL Urine Opiates Screen Urine Methadone Screen Acetaminophen 5.0 L (10.0-30.0) ug/mL Ur Barbiturates Screen Ur Phencyclidine Scrn Ur Amphetamines Screen U Benzodiazepines Scrn Urine Cocaine Screen U Marijuana (THC) Screen Drugs of Abuse Note Plasma/Serum Alcohol < 0.01 (0-0.07) % 12/12/20 Range/Units Unknown WBC (4.5-11.0) K/mm3 RBC (3.65-5.03) M/mm3 Hgb (10.1-14.3) gm/dl Hct (30.3-42.9) % MCV (79-97) fl MCH (28-32) pg MCHC (30-34) % RDW (13.2-15.2) % Plt Count (140-440) K/mm3 Lymph % (Auto) (13.4-35.0) % [place] % (Auto) (0.0-7.3) % Eos % (Auto) (0.0-4.3) % Baso % (Auto) (0.0-1.8) % Lymph # (Auto) (1.2-5.4) K/mm3 [place] # (Auto) (0.0-0.8) K/mm3 Eos # (Auto) (0.0-0.4) K/mm3 Baso # (Auto) (0.0-0.1) K/mm3 Seg Neutrophils % (40.0-70.0) % Seg Neutrophils # (1.8-7.7) K/mm3 Sodium (137-145) mmol/L Potassium (3.6-5.0) mmol/L Chloride (98-107) mmol/L Carbon Dioxide (22-30) mmol/L Anion Gap mmol/L BUN (7-17) mg/dL Creatinine (0.6-1.2) mg/dL Estimated GFR ml/min BUN/Creatinine Ratio % Glucose (65-100) mg/dL Calcium (8.4-10.2) mg/dL Total Bilirubin (0.1-1.2) mg/dL AST (5-40) units/L ALT (7-56) units/L Alkaline Phosphatase (35-129) units/L Total Protein (6.3-8.2) g/dL Albumin (3.9-5) g/dL Albumin/Globulin Ratio % Urine Color (Yellow) Urine Turbidity (Clear) Urine pH (5.0-7.0) Ur Specific Ira (1.003-1.030) Urine Protein (Negative) mg/dL Urine Glucose (UA) (Negative) mg/dL Urine Ketones (Negative) mg/dL Urine Blood (Negative) Urine Nitrite (Negative) Urine Bilirubin (Negative) Urine Urobilinogen (<2.0) mg/dL Ur Leukocyte Esterase (Negative) Urine WBC (Auto) (0.0-6.0) /HPF Urine RBC (Auto) (0.0-6.0) /HPF U Epithel Cells (Auto) (0-13.0) /HPF Urine Bacteria (Auto) (Negative) /HPF Urine Mucus /HPF Salicylates (2.8-20.0) mg/dL Urine Opiates Screen Negative Urine Methadone Screen Negative Acetaminophen (10.0-30.0) ug/mL Ur Barbiturates Screen Negative Ur Phencyclidine Scrn Negative Ur Amphetamines Screen Negative U Benzodiazepines Scrn Negative Urine Cocaine Screen Negative U Marijuana (THC) Screen Negative Drugs of Abuse Note Disclamer Plasma/Serum Alcohol (0-0.07) % - Medical Decision Making This patient presents to the emergency department for a mental evaluation. She has what appears to be hallucinations and delusions that there are multiple animals outside of her residence at [place]. I could possibly believe that the patient saw snakes or lizards, but it is highly unlikely that she has seen tigers. The patient says that these animals are coming from the mountains. Altogether this appears to show some acute psychosis. She was seen by the psychiatric oracle analyst who feels that the patient meets criteria for a 1013 and inpatient stabilization. She has been placed on a 1013 and an ED hold. Labs have been unremarkable including CBC, metabolic panel, blood alcohol level, UDS, urinalysis. Vital signs reassuring throughout her ED course thus far including being afebrile. She appears medically cleared for psychiatric placement. Critical Care Time: No Critical care attestation.: If time is entered above; I have spent that time in minutes in the direct care of this critically ill patient, excluding procedure time. ED Disposition Clinical Impression: Acute psychosis, Hallucinations, Delusions Disposition: DC/TX-65 PSY HOSP/PSY UNIT Is pt being admited?: No Condition: Stable Time of Disposition: 14:31
[2020-12-12 13:50] LABS: Amphetamine Screen,Urine Negative; Benzodiazepines Screen,Urine Negative; Cannabinoid Screen,Urine Negative; Cocaine Screen,Urine Negative; Methadone Screen,Urine Negative; Opiate Screen,Urine Negative
[2020-12-12 13:56] LABS: Bacteria,Urine 1+ /HPF (Negative); Bilirubin,Urine NEG (Negative); Blood,Urine NEG (Negative); Color,Urine Yellow (Yellow); Mucus,Urine FEW /HPF; Protein,Urine <15 mg/dL mg/dL (Negative)
[2020-12-12] MEDS ORDERED: ZIPRASIDONE MESYLATE 20 MG VIAL IM ONE (21:36)
[2020-12-12] MEDS ORDERED: WATER FOR INJ Sterile (PF) 10 ML ONE (21:38)
--- NOTE | 2020-12-12 21:42 | Event Note ---
I briefly assessed patient. Mrs. Wilburn is agitated and hyperverbal. She insists that the nurse give another patient her home medications. Nurses contacted route rider supervisor at [place]. Human Factors Advisor Lead will not be able to provide a list of her home medications until the morning. Patient required chemical restraint with Aldo LOPEZ.
[2020-12-13 08:31] VITALS: BP 133/91
--- NOTE | 2020-12-13 08:58 | Consultation ---
History of Present Illness - Reason for Consult Consult date: 12/13/20 Reason for consult: MHE Requesting physician: NIMCO EDUARDO - History of Present Psychiatric Illness Per ED Provider:This is a 65-year-old -Tongan female presents to the emergency department from [place] for a mental health evaluation. The patient says that she has been seeing snakes, lizards, and tigers "outside of my duplex." She says that the "tigers are coming down from the mountains." The patient has a history of schizophrenia but denies that these animals are hallucinations. She keeps repeating that someone else at her facility "sees them to, he will tell you." The patient also has a history of hypertension, diabetes, high cholesterol. She has some chronic tremors that she says is from Parkinson's disease. I do not see that diagnosis from her 1 previous visit in 2018, but it is possible she was diagnosed in the interim. She denies any suicidal or homicidal ideations. PSYCH HPI Patient is a 65 year old disabled Female with Past psychiatric history of Schizoaffective disorder who currently resides at [facility] who came in for mental health evaluation for auditory and visual hallucinations. Patient seen this AM, she apears sad and is constantly requesting to go back to her shelter, pt states she normally attends day program that she is missing, she also endorses that she takes medications for her shakes and DM and HTN and heart issues that is yet to be given to her. She also notes she has a sister who is her payee, I attempt to call sister but it went to voicemail. Patient is denyinh AV, says she is not seeing anything and would just like to go home. PAST PSYCHIATRIC HISTORY Diagnoses: Suicide attempts or Self-harm behavior: Prior psychiatric hospitalizations: Substance Abuse history: Previous psychiatric medications tried: Outpatient treatment: PAST MEDICAL HISTORY: Family Psychiatric History: None reported or documented SOCIAL HISTORY Marital Status: Living Arrangements: Employment Status: Access to guns/weapons: Education: History of Abuse: Legal History: REVIEW OF SYSTEMS ROS cannot be reliably obtained from the patient due to her confusion and somnolence. REVIEW OF SYSTEMS Constitutional: Negative for weight loss ENT: Negative for stridor Respiratory: Negative for cough or hemoptysis All other systems reviewed and are negative MENTAL STATUS EXAMINATION General Appearance and Behavior: Age appropriate, good hygiene, not wearing appropriate clothes, good eye contact, cooperative polite with questioning. Cooperation: Participating/engaged Psychomotor Behavior: Psychomotor tremlousness Mood: crying, sad Affect and affective range: dysthymic Thought Process:logical, Thought Content: obessions with going home Speech: pressured, loud volume at times Intellectual Functioning: Average Suicidal Ideation: Denies SI Homicidal Ideation: Denies HIl Impulse Control: Impaired Insight and Judgment: Limited insight and judgment Memory: short term memory intact Attention: Divided attention impaired Orientation: Alert, oriented, Diagnoses: Assessment and Plan - Psychiatric problem (1) Mood disorder Current Visit: Yes Status: Acute Treatment Plan Patient is presently alert and oriented with insight into her medical diagnosis and psychiatric. She is able to name where she stays, endorses she goes to a day program and articulate she gets medications for medical problem that is yet to be given to her here. Patient is crying and appears sad for current psychiatric hold. Pt also able to state her sister is her payee who is listed on file I do not see any [employer] contact infor on file to gain pertinent information. Attempt made to call sister but no one is picking. Review of psych medications shows pt gets monthly Invega shot and most recent was over a week ago. I cannot recommend inpatient unless more behavioral information is obtained from [employer] that denotes pt current behavior is endangering, as inpatient would cause more behavioral harm. Will defer to case management. MEDICATIONS: Risks, benefits and alternatives of medications discussed with the patient, questions answered and consent obtained from patient. PSYCHOTHERAPY: Supportive psychotherapy provided MEDICAL: Per primary team DELIRIUM PRECAUTIONS: Please re-orient patient frequently, keep lights on during the day, and minimize benzodiazepines and opiates as these medications could worsen patient's confusion. FOUNDRY WORKER APPRENTICE: DISPOSITION: Do not Recommend acute inpatient psychiatric hospitalization at this time. Case discussed with Dr. Meyer who agrees with current disposition LEGAL STATUS: 1013 rescinded FOLLOW-UP: Will sign off Thank you for the consult. Please contact with any questions and/or concerns. Medications and Allergies Allergies Allergy/AdvReac Type Severity Reaction Status Date / Time No Known Allergies Allergy Verified 12/12/20 10:15 Home Medications Medication Instructions Recorded Confirmed Last Taken Type Divalproex ER [Depakote ER] 250 mg PO HS 10/19/13 03/03/18 Unknown History Divalproex ER [Depakote ER] 500 mg PO BID 10/19/13 03/03/18 03/03/18 History Simvastatin (Nf) [Zocor] 40 mg PO QHS 10/19/13 03/03/18 Unknown History metFORMIN [Glucophage] 1,000 mg PO BID 10/19/13 03/03/18 Unknown History Mental Status Exam - Vital signs Last Vital Signs Temp 97.6 F 12/13/20 08:31 Pulse 86 12/13/20 08:31 Resp 18 12/13/20 08:31 BP 133/91 12/13/20 08:31 Pulse Ox 98 12/13/20 08:31 Results Result Diagrams: 12/12/20 10:16 12/12/20 10:16 Abnormal lab results 12/12/20 12/12/20 12/12/20 Range/Units 10:16 10:16 10:16 RBC 5.47 H (3.65-5.03) M/mm3 MCV 71 L (79-97) fl MCH 23 L (28-32) pg RDW 16.8 H (13.2-15.2) % [place] % (Auto) 8.8 H (0.0-7.3) % Glucose 182 H (65-100) mg/dL Albumin 3.8 L (3.9-5) g/dL Salicylates < 0.3 L (2.8-20.0) mg/dL Acetaminophen (10.0-30.0) ug/mL 12/12/20 Range/Units 10:16 RBC (3.65-5.03) M/mm3 MCV (79-97) fl MCH (28-32) pg RDW (13.2-15.2) % [place] % (Auto) (0.0-7.3) % Glucose (65-100) mg/dL Albumin (3.9-5) g/dL Salicylates (2.8-20.0) mg/dL Acetaminophen 5.0 L (10.0-30.0) ug/mL All other labs normal. Assessment and Plan - Psychiatric problem (1) Mood disorder Current Visit: Yes Status: Acute
[2020-12-13] MEDS ORDERED: diphenhydrAMINE 25 MG CAP PO PRN (10:55)
[2020-12-13] MEDS ORDERED: ACETAMINOPHEN 325 MG TAB PO PRN (10:55)
[2020-12-13] MEDS ORDERED: HALOPERIDOL LACTATE 5 MG/1 ML INJ IM PRN (10:55)
[2020-12-13] MEDS ORDERED: LORazepam 2 MG/ML VIAL IM PRN (10:55)
--- NOTE | 2020-12-13 10:57 | Event Note ---
Date: 12/13/20 The patient was evaluated in the emergency department for symptoms described in the history of present illness. He/she was evaluated in the context of the global COVID-19 pandemic, which necessitated consideration that the patient might be at risk for infection with the virus that causes COVID-19. Institutional protocols and algorithms that pertain to the evaluation of patients at risk for COVID-19 are in a state of rapid change based on information released by regulatory bodies including the CDC and federal and state organizations. These policies and algorithms were followed during the patient's care in the emergency department. Please note that these policies, procedures and recommendations changed on a rapid basis. The patient is standing and walking. She is hyperverbal. Medically cleared on initial ER evaluation. Laboratory studies, initial ER documentation reviewed and appreciated, nursing documentation reviewed and appreciated, awaiting psychiatric recommendations at this time. Nursing team requesting as needed for verbal agitation and behavioral agitation. psychiatric recommendations are reviewed and appreciated. Patient does not appear to have an immediate medical contraindication at this time that would preclude psychiatric evaluation, consultation, placement and disposition. As needed orders initiated. Vital Signs 12/12/20 12/12/20 12/12/20 10:12 11:00 19:38 Temperature 98.1 F 98.0 F 98.7 F Pulse Rate 65 80 Respiratory 20 20 20 Rate Blood Pressure 109/93 169/92 Blood Pressure 129/85 [Right] O2 Sat by Pulse 100 97 Oximetry 12/12/20 12/13/20 12/13/20 20:19 02:50 08:31 Temperature 98.1 F 97.6 F Pulse Rate 87 53 L 86 Respiratory 16 18 Rate Blood Pressure Blood Pressure 104/65 133/91 [Right] O2 Sat by Pulse 98 96 98 Oximetry Lab Results 12/12/20 12/12/20 12/12/20 Range/Units 10:16 10:16 10:16 WBC 6.2 (4.5-11.0) K/mm3 RBC 5.47 H (3.65-5.03) M/mm3 Hgb 12.7 (10.1-14.3) gm/dl Hct 39.0 (30.3-42.9) % MCV 71 L (79-97) fl MCH 23 L (28-32) pg MCHC 33 (30-34) % RDW 16.8 H (13.2-15.2) % Plt Count 176 (140-440) K/mm3 Lymph % (Auto) 23.7 (13.4-35.0) % [place] % (Auto) 8.8 H (0.0-7.3) % Eos % (Auto) 0.9 (0.0-4.3) % Baso % (Auto) 0.4 (0.0-1.8) % Lymph # (Auto) 1.5 (1.2-5.4) K/mm3 [place] # (Auto) 0.6 (0.0-0.8) K/mm3 Eos # (Auto) 0.1 (0.0-0.4) K/mm3 Baso # (Auto) 0.0 (0.0-0.1) K/mm3 Seg Neutrophils % 66.2 (40.0-70.0) % Seg Neutrophils # 4.1 (1.8-7.7) K/mm3 Sodium 139 (137-145) mmol/L Potassium 4.1 (3.6-5.0) mmol/L Chloride 100.2 (98-107) mmol/L Carbon Dioxide 30 (22-30) mmol/L Anion Gap 13 mmol/L BUN 13 (7-17) mg/dL Creatinine 0.8 (0.6-1.2) mg/dL Estimated GFR > 60 ml/min BUN/Creatinine Ratio 16 % Glucose 182 H (65-100) mg/dL Calcium 9.6 (8.4-10.2) mg/dL Total Bilirubin 0.20 (0.1-1.2) mg/dL AST 15 (5-40) units/L ALT 8 (7-56) units/L Alkaline Phosphatase 90 (35-129) units/L Total Protein 6.9 (6.3-8.2) g/dL Albumin 3.8 L (3.9-5) g/dL Albumin/Globulin Ratio 1.2 % Urine Color (Yellow) Urine Turbidity (Clear) Urine pH (5.0-7.0) Ur Specific [place] (1.003-1.030) Urine Protein (Negative) mg/dL Urine Glucose (UA) (Negative) mg/dL Urine Ketones (Negative) mg/dL Urine Blood (Negative) Urine Nitrite (Negative) Urine Bilirubin (Negative) Urine Urobilinogen (<2.0) mg/dL Ur Leukocyte Esterase (Negative) Urine WBC (Auto) (0.0-6.0) /HPF Urine RBC (Auto) (0.0-6.0) /HPF U Epithel Cells (Auto) (0-13.0) /HPF Urine Bacteria (Auto) (Negative) /HPF Urine Mucus /HPF Salicylates < 0.3 L (2.8-20.0) mg/dL Urine Opiates Screen Urine Methadone Screen Acetaminophen (10.0-30.0) ug/mL Ur Barbiturates Screen Ur Phencyclidine Scrn Ur Amphetamines Screen U Benzodiazepines Scrn Urine Cocaine Screen U Marijuana (THC) Screen Drugs of Abuse Note Plasma/Serum Alcohol (0-0.07) % 12/12/20 12/12/20 12/12/20 Range/Units 10:16 10:16 Unknown WBC (4.5-11.0) K/mm3 RBC (3.65-5.03) M/mm3 Hgb (10.1-14.3) gm/dl Hct (30.3-42.9) % MCV (79-97) fl MCH (28-32) pg MCHC (30-34) % RDW (13.2-15.2) % Plt Count (140-440) K/mm3 Lymph % (Auto) (13.4-35.0) % [place] % (Auto) (0.0-7.3) % Eos % (Auto) (0.0-4.3) % Baso % (Auto) (0.0-1.8) % Lymph # (Auto) (1.2-5.4) K/mm3 [place] # (Auto) (0.0-0.8) K/mm3 Eos # (Auto) (0.0-0.4) K/mm3 Baso # (Auto) (0.0-0.1) K/mm3 Seg Neutrophils % (40.0-70.0) % Seg Neutrophils # (1.8-7.7) K/mm3 Sodium (137-145) mmol/L Potassium (3.6-5.0) mmol/L Chloride (98-107) mmol/L Carbon Dioxide (22-30) mmol/L Anion Gap mmol/L BUN (7-17) mg/dL Creatinine (0.6-1.2) mg/dL Estimated GFR ml/min BUN/Creatinine Ratio % Glucose (65-100) mg/dL Calcium (8.4-10.2) mg/dL Total Bilirubin (0.1-1.2) mg/dL AST (5-40) units/L ALT (7-56) units/L Alkaline Phosphatase (35-129) units/L Total Protein (6.3-8.2) g/dL Albumin (3.9-5) g/dL Albumin/Globulin Ratio % Urine Color Yellow (Yellow) Urine Turbidity Clear (Clear) Urine pH 5.0 (5.0-7.0) Ur Specific [place] 1.018 (1.003-1.030) Urine Protein <15 mg/dl (Negative) mg/dL Urine Glucose (UA) Neg (Negative) mg/dL Urine Ketones Neg (Negative) mg/dL Urine Blood Neg (Negative) Urine Nitrite Neg (Negative) Urine Bilirubin Neg (Negative) Urine Urobilinogen 4.0 (<2.0) mg/dL Ur Leukocyte Esterase Neg (Negative) Urine WBC (Auto) 1.0 (0.0-6.0) /HPF Urine RBC (Auto) 3.0 (0.0-6.0) /HPF U Epithel Cells (Auto) 1.0 (0-13.0) /HPF Urine Bacteria (Auto) 1+ (Negative) /HPF Urine Mucus Few /HPF Salicylates (2.8-20.0) mg/dL Urine Opiates Screen Urine Methadone Screen Acetaminophen 5.0 L (10.0-30.0) ug/mL Ur Barbiturates Screen Ur Phencyclidine Scrn Ur Amphetamines Screen U Benzodiazepines Scrn Urine Cocaine Screen U Marijuana (THC) Screen Drugs of Abuse Note Plasma/Serum Alcohol < 0.01 (0-0.07) % 12/12/20 Range/Units Unknown WBC (4.5-11.0) K/mm3 RBC (3.65-5.03) M/mm3 Hgb (10.1-14.3) gm/dl Hct (30.3-42.9) % MCV (79-97) fl MCH (28-32) pg MCHC (30-34) % RDW (13.2-15.2) % Plt Count (140-440) K/mm3 Lymph % (Auto) (13.4-35.0) % [place] % (Auto) (0.0-7.3) % Eos % (Auto) (0.0-4.3) % Baso % (Auto) (0.0-1.8) % Lymph # (Auto) (1.2-5.4) K/mm3 [place] # (Auto) (0.0-0.8) K/mm3 Eos # (Auto) (0.0-0.4) K/mm3 Baso # (Auto) (0.0-0.1) K/mm3 Seg Neutrophils % (40.0-70.0) % Seg Neutrophils # (1.8-7.7) K/mm3 Sodium (137-145) mmol/L Potassium (3.6-5.0) mmol/L Chloride (98-107) mmol/L Carbon Dioxide (22-30) mmol/L Anion Gap mmol/L BUN (7-17) mg/dL Creatinine (0.6-1.2) mg/dL Estimated GFR ml/min BUN/Creatinine Ratio % Glucose (65-100) mg/dL Calcium (8.4-10.2) mg/dL Total Bilirubin (0.1-1.2) mg/dL AST (5-40) units/L ALT (7-56) units/L Alkaline Phosphatase (35-129) units/L Total Protein (6.3-8.2) g/dL Albumin (3.9-5) g/dL Albumin/Globulin Ratio % Urine Color (Yellow) Urine Turbidity (Clear) Urine pH (5.0-7.0) Ur Specific [place] (1.003-1.030) Urine Protein (Negative) mg/dL Urine Glucose (UA) (Negative) mg/dL Urine Ketones (Negative) mg/dL Urine Blood (Negative) Urine Nitrite (Negative) Urine Bilirubin (Negative) Urine Urobilinogen (<2.0) mg/dL Ur Leukocyte Esterase (Negative) Urine WBC (Auto) (0.0-6.0) /HPF Urine RBC (Auto) (0.0-6.0) /HPF U Epithel Cells (Auto) (0-13.0) /HPF Urine Bacteria (Auto) (Negative) /HPF Urine Mucus /HPF Salicylates (2.8-20.0) mg/dL Urine Opiates Screen Negative Urine Methadone Screen Negative Acetaminophen (10.0-30.0) ug/mL Ur Barbiturates Screen Negative Ur Phencyclidine Scrn Negative Ur Amphetamines Screen Negative U Benzodiazepines Scrn Negative Urine Cocaine Screen Negative U Marijuana (THC) Screen Negative Drugs of Abuse Note Disclamer Plasma/Serum Alcohol (0-0.07) %
[2020-12-13] MEDS ORDERED: metFORMIN 500 MG TAB PO SCH (17:00)
[2020-12-13] MEDS ORDERED: PRAVASTATIN 40 MG TAB PO SCH (22:00)
[2020-12-13] MEDS ORDERED: NON-FORMULARY EACH (Simvastatin (Nf) 20 MG Tablet) PO SCH (22:00)
== END 2020-12-13 13:48 | disposition home or self-care (01) ==
LOC: ED 09:32
DX: F23 Brief psychotic disorder (principal); F22 Delusional disorders; I10 Essential (primary) hypertension; E11.9 Type 2 diabetes mellitus without complications; E78.00 Pure hypercholesterolemia, unspecified; F25.0 Schizoaffective disorder, bipolar type; Z20.822 Contact with and (suspected) exposure to COVID-19; Z79.899 Other long term (current) drug therapy
CPT/HCPCS: 36415; 80053; 80307; 81001; 85025; 96372; 99284; J2060; J3486; U0003; 80320; A9270-GY; G0480

== ENCOUNTER 2021-01-11 16:25 | Emergency (ER) | payer MEDICAID ==
--- NOTE | 2021-01-11 17:32 | Emergency Department Report ---
HPI - General Time Seen by Provider: 01/11/21 16:34 - HPI HPI: Room 15 The patient is a 65-year-old female present with a chief complaint of auditory hallucinations/suicidal ideation. Patient has a history of schizophrenia and bipolar disorder and states she has felt suicidal for the past 4 years secondary to the of multiple family members. The patient states today she had auditory hallucinations telling her to "take a whole bunch of pills." The patient states she did take medication initially stating she took 7 pills 5 of which were amlodipine. However the patient's story changes since she states she took 5 amlodipine, 3 Depakote and 8 Metformin's today at approximately 14: 00 for a total of 16 pills. ED Past Medical Hx - Past Medical History Hx Hypertension: Yes Hx Diabetes: Yes Hx Psychiatric Treatment: Yes (bipolar, schizophrenia, depression) Additional medical history: high cholesterol - Surgical History Past Surgical History?: No - Family History Family history: no significant - Social History Smoking Status: Never Smoker Substance Use Type: None - Medications Home Medications: Home Medications Medication Instructions Recorded Confirmed Last Taken Type metFORMIN [Glucophage] 500 mg PO QDAY 10/19/13 12/13/20 Unknown History Benztropine [Cogentin] 0.5 mg PO BID 12/13/20 12/13/20 Unknown History Divalproex ER [DepaKOTE ER] 500 mg PO BID 12/13/20 12/13/20 Unknown History Simvastatin 40 mg PO QDAY 12/13/20 12/13/20 Unknown History amLODIPine [Norvasc] 10 mg PO DAILY 12/13/20 12/13/20 Unknown History risperiDONE [RisperDAL] 3 mg PO QHS 12/13/20 12/13/20 Unknown History traZODone [Desyrel] 50 mg PO QHS 12/13/20 12/13/20 Unknown History ED Review of Systems ROS: Stated complaint: SUICIDAL Other details as noted in HPI Constitutional: no symptoms reported Eyes: denies: eye pain ENT: denies: throat pain Respiratory: no symptoms reported Cardiovascular: denies: chest pain Endocrine: no symptoms reported Gastrointestinal: denies: abdominal pain Genitourinary: denies: dysuria Musculoskeletal: denies: back pain Neurological: denies: headache Psychiatric: auditory hallucinations, suicidal thoughts Physical Exam - Physical Exam Physical Exam: GENERAL: The patient is well-developed well-nourished female sitting in chair not appearing to be in acute distress. [] HEENT: Normocephalic. Atraumatic. Extraocular motions are intact. Patient has moist mucous membranes. NECK: Supple. Trachea midline CHEST/LUNGS: Clear to auscultation. There is no respiratory distress noted. HEART/CARDIOVASCULAR: Regular. There is no tachycardia. There is no gallop rub or murmur. ABDOMEN: Abdomen is soft, nontender. Patient has normal bowel sounds. There is no abdominal distention. SKIN: There is no rash. There is no edema. There is no diaphoresis. NEURO: The patient is awake and alert. The patient has rambling speech at times but answers questions appropriately. The patient is cooperative. The patient has no focal neurologic deficits. MUSCULOSKELETAL: There is no evidence of acute injury. ED Course - Consultations Consultation #1: 01/11/21 17:37 Poison control called 01/11/21 17:46 Case discussed with poison control. Recommends observation for 7-8 hours from time of ingestion. Biggest concern would be amlodipine-look for hypotension, bradycardia and recommend initially treating with IV fluids at present. Recommends checking a Depakote level and rechecking it in 6 hours to make sure it is not trending upwards. If the patient remains at baseline after 7-8-hour observation may be cleared medically for psych ED Medical Decision Making - Lab Data Result diagrams: 01/11/21 17:40 01/11/21 17:40 Laboratory Last Values WBC 6.7 K/mm3 (4.5-11.0) 01/11/21 17:40 RBC 5.27 M/mm3 (3.65-5.03) H 01/11/21 17:40 Hgb 11.9 gm/dl (10.1-14.3) 01/11/21 17:40 Hct 36.7 % (30.3-42.9) 01/11/21 17:40 MCV 70 fl (79-97) L 01/11/21 17:40 MCH 23 pg (28-32) L 01/11/21 17:40 MCHC 33 % (30-34) 01/11/21 17:40 RDW 16.1 % (13.2-15.2) H 01/11/21 17:40 Plt Count 173 K/mm3 (140-440) 01/11/21 17:40 Lymph % (Auto) 24.7 % (13.4-35.0) 01/11/21 17:40 [place] % (Auto) 7.5 % (0.0-7.3) H 01/11/21 17:40 Eos % (Auto) 1.0 % (0.0-4.3) 01/11/21 17:40 Baso % (Auto) 1.0 % (0.0-1.8) 01/11/21 17:40 Lymph # (Auto) 1.6 K/mm3 (1.2-5.4) 01/11/21 17:40 [place] # (Auto) 0.5 K/mm3 (0.0-0.8) 01/11/21 17:40 Eos # (Auto) 0.1 K/mm3 (0.0-0.4) 01/11/21 17:40 Baso # (Auto) 0.1 K/mm3 (0.0-0.1) 01/11/21 17:40 Seg Neutrophils % 65.8 % (40.0-70.0) 01/11/21 17:40 Seg Neutrophils # 4.4 K/mm3 (1.8-7.7) 01/11/21 17:40 Sodium 137 mmol/L (137-145) 01/11/21 17:40 Potassium 3.8 mmol/L (3.6-5.0) 01/11/21 17:40 Chloride 101.5 mmol/L (98-107) 01/11/21 17:40 Carbon Dioxide 24 mmol/L (22-30) 01/11/21 17:40 Anion Gap 15 mmol/L 01/11/21 17:40 BUN 11 mg/dL (7-17) 01/11/21 17:40 Creatinine 0.8 mg/dL (0.6-1.2) 01/11/21 17:40 Estimated GFR > 60 ml/min 01/11/21 17:40 BUN/Creatinine Ratio 14 % 01/11/21 17:40 Glucose 145 mg/dL (65-100) H 01/11/21 17:40 Calcium 8.8 mg/dL (8.4-10.2) 01/11/21 17:40 Total Bilirubin 0.30 mg/dL (0.1-1.2) 01/11/21 17:40 AST 11 units/L (5-40) 01/11/21 17:40 ALT 7 units/L (7-56) 01/11/21 17:40 Alkaline Phosphatase 89 units/L (35-129) 01/11/21 17:40 Total Protein 6.7 g/dL (6.3-8.2) 01/11/21 17:40 Albumin 3.3 g/dL (3.9-5) L 01/11/21 17:40 Albumin/Globulin Ratio 1.0 % 01/11/21 17:40 Urine Color Yellow (Yellow) 01/11/21 23:24 Urine Turbidity Clear (Clear) 01/11/21 23:24 Urine pH 7.0 (5.0-7.0) 01/11/21 23:24 Ur Specific [place] 1.011 (1.003-1.030) 01/11/21 23:24 Urine Protein <15 mg/dl mg/dL (Negative) 01/11/21 23:24 Urine Glucose (UA) Neg mg/dL (Negative) 01/11/21 23:24 Urine Ketones Neg mg/dL (Negative) 01/11/21 23:24 Urine Blood Neg (Negative) 01/11/21 23:24 Urine Nitrite Neg (Negative) 01/11/21 23:24 Urine Bilirubin Neg (Negative) 01/11/21 23:24 Urine Urobilinogen 2.0 mg/dL (<2.0) 01/11/21 23:24 Ur Leukocyte Esterase Neg (Negative) 01/11/21 23:24 Urine WBC (Auto) < 1.0 /HPF (0.0-6.0) 01/11/21 23:24 Urine RBC (Auto) < 1.0 /HPF (0.0-6.0) 01/11/21 23:24 U Epithel Cells (Auto) 1.0 /HPF (0-13.0) 01/11/21 23:24 Salicylates < 0.3 mg/dL (2.8-20.0) L 01/11/21 17:40 Urine Opiates Screen Presumptive negative 01/11/21 23:24 Urine Methadone Screen Presumptive negative 01/11/21 23:24 Acetaminophen 5.0 ug/mL (10.0-30.0) L 01/11/21 17:40 Ur Barbiturates Screen Presumptive negative 01/11/21 23:24 Valproic Acid 46.0 ug/mL (50-100) L 01/11/21 23:59 Ur Phencyclidine Scrn Presumptive negative 01/11/21 23:24 Ur Amphetamines Screen Presumptive negative 01/11/21 23:24 U Benzodiazepines Scrn Presumptive negative 01/11/21 23:24 Urine Cocaine Screen Presumptive negative 01/11/21 23:24 U Marijuana (THC) Screen Presumptive negative 01/11/21 23:24 Plasma/Serum Alcohol < 0.01 % (0-0.07) 01/11/21 17:40 - EKG Data -: EKG Interpreted by Wi EKG shows normal: sinus rhythm Rate: bradycardia (48 bpm) - EKG Data When compared to previous EKG there are: previous EKG unavailable Interpretation: other (EDUARDO QRS 79, QTc 334) - Differential Diagnosis Suicidal ideation Critical care attestation.: If time is entered above; I have spent that time in minutes in the direct care of this critically ill patient, excluding procedure time. ED Disposition Clinical Impression: Suicidal ideation, Auditory hallucination Disposition: DC/TX-65 PSY HOSP/PSY UNIT Is pt being admited?: No Does the pt Need Aspirin: No Condition: Stable Referrals: PRIMARY CARE, [Primary Care Provider] - 3-5 Days Time of Disposition: 00:41 (Awaiting acceptance)
[2021-01-11 18:01] LABS: Basophils # (Auto) 0.1 K/mm3 (0.0-0.1); Eosinophils # (Auto) 0.1 K/mm3 (0.0-0.4); Hematocrit 36.7 % (30.3-42.9); Hemoglobin 11.9 gm/dl (10.1-14.3); Lymphocytes # (Auto) 1.6 K/mm3 (1.2-5.4); Lymphocytes % (Auto) 24.7 % (13.4-35.0); Mean Corpuscular HGB Conc 33 % (30-34); Monocytes # (Auto) 0.5 K/mm3 (0.0-0.8); Monocytes % (Auto) 7.5 % (0.0-7.3); Platelet Count 173 K/mm3 (140-440); Red Blood Count 5.27 M/mm3 (3.65-5.03); Red Cell Distribution Width 16.1 % (13.2-15.2)
[2021-01-11 18:04] LABS: Mean Corpuscular Volume 70 fl (79-97)
[2021-01-11 18:22] LABS: Alanine Aminotransferase 7 units/L (7-56); Albumin 3.3 g/dL (3.9-5); BUN/Creatinine Ratio 14; Blood Urea Nitrogen 11 mg/dL (7-17); Calcium 8.8 mg/dL (8.4-10.2); Hemolysis Index 4
[2021-01-12 00:18] LABS: Bilirubin,Urine NEG (Negative); Blood,Urine NEG (Negative); Color,Urine Yellow (Yellow); Protein,Urine <15 mg/dL mg/dL (Negative); RBC,Urine < 1.0 /HPF (0.0-6.0); WBC,Urine < 1.0 /HPF (0.0-6.0)
[2021-01-12 00:25] LABS: Amphetamine Screen,Urine PRESUMPTIVE NEGATIVE; Benzodiazepines Screen,Urine PRESUMPTIVE NEGATIVE; Cannabinoid Screen,Urine PRESUMPTIVE NEGATIVE; Cocaine Screen,Urine PRESUMPTIVE NEGATIVE; Methadone Screen,Urine PRESUMPTIVE NEGATIVE; Opiate Screen,Urine PRESUMPTIVE NEGATIVE
--- NOTE | 2021-01-12 09:51 | Electrocardiograph Report ---
[facility] Test Date: 2021-01-11 Test Time: 20:39:27 Pat Name: LATOSHA ALMEAN Department: Room: Gender: F Regulatory Compliance Officer: ZEV : 1955 Requested By: GUERRERO JIN Order Number: [id number] Reading MD: Fede Dave Measurements Intervals [place] Rate: 48 P: 90 VA: 132 QRS: 78 QRSD: 79 T: 79 QT: 387 QTc: 334 Interpretive Statements Sinus bradycardia Atrial premature complex ST elevation, consider inferior injury No previous ECG available for comparison Electronically Signed On 01-12-2021 9:50:53 EDT by Fede Dave
--- NOTE | 2021-01-12 10:38 | Event Note ---
Date: 01/12/21 65-year-old female who presented with suicidal ideation and auditory hallucinations. She apparently tried to overdose on her home amlodipine, Dep akote, and Metformin. She was seen by my colleague and was medically cleared for psychiatric evaluation and placement. Her vital signs have remained stable. There have been no acute events overnight. She was seen by the mental health/psychiatry team who recommended further psychiatric inpatient treatment. She is currently awaiting psychiatric placement. Attempted to reconcile home medications but patient will not/cannot say her medications and/or the doses.
--- NOTE | 2021-01-12 13:38 | Consultation ---
History of Present Illness - Reason for Consult Consult date: 01/12/21 Reason for consult: suicidal ideation - History of Present Psychiatric Illness Per Ed Note: The patient is a 65-year-old female present with a chief complaint of auditory hallucinations/suicidal ideation. Patient has a history of schizophrenia and bipolar disorder and states she has felt suicidal for the past 4 years secondary to the of multiple family members. The patient states today she had auditory hallucinations telling her to "take a whole bunch of pills." The patient states she did take medication initially stating she took 7 pills 5 of which were amlodipine. However the patient's story changes since she states she took 5 amlodipine, 3 Depakote and 8 Metformin's today at approximately 14: 00 for a total of 16 pills. Ana Wilburn is a 65 year old female with a history of Schizophrenia, Anxiety and Bipolar who presents to the ED with auditory hallucinations/suicidal ideation. In my interview with the patient, she reports that she ran out of her correction because of her new roommates stating " I don't want to go back there." The patient reports taking about 16 pills which she states " depakote, my heart medication and another medication." The patient states that she was on Hadol monthly LEWIS which she last took last month. The patient continues to endorse suicidal ideation with out a plan and auditory hallucinations. Collateral information from the patient's sister Leia-states that the patient is seeing a psychiatrist at the "[facility]" where she gets her monthly LEWIS however, she is unsure of her medication compliance. She reports seeing the patient running down the road yesterday. PAST PSYCHIATRIC HISTORY: Diagnoses: Schizophrenia, Bipolar Suicide attempts or Self-harm behavior: Denies Prior psychiatric hospitalizations: unknown Substance Abuse history: unknown Previous psychiatric medications tried: Haldol, Risperdal, Benztropine Vistaril Outpatient treatment: PAST MEDICAL HISTORY: Unnown Family Psychiatric History: None reported or documented SOCIAL HISTORY Marital Status: Single Living Arrangements: Lives in a correction Employment Status: unemployed Access to guns/weapons: none reported Education: 11th grade History of Abuse: none reported Legal History:None reported REVIEW OF SYSTEMS Constitutional: Negative for weight loss ENT: Negative for stridor Respiratory: Negative for cough or hemoptysis All other systems reviewed and are negative MENTAL STATUS EXAMINATION General Appearance: Dressed appropriately, Behavior: cooperative Mood: labile Affect and affective range: congruent with mood Thought Process: Disorganized Speech: Normal Thought content: SI Suicidal Ideation: Denies Homicidal Ideation: Denies Hallucinations:Auditory Delusions: Denies Insight and Judgment: Limited insight and judgment Memory: impaired Attention: Normal Orientation: Alert, oriented Assessment Diagnosis: (1)Bipolar, Unspecified-F31.9 Treatment Plan Continue 1013 Start Depakote 250mg po BID Start Haldol- 5mg po BID Start Bentropine 1mg po BID PSYCHOTHERAPY: Supportive psychotherapy provided MEDICAL: Per primary team DELIRIUM PRECAUTIONS: Please re-orient patient frequently, keep lights on during the day, and minimize benzodiazepines and opiates as these medications could worsen patient's confusion. PHYSICAL EDUCATION PROFESSOR: Per medical team DISPOSITION: Recommend acute psychiatric inpatient treatment Will follow. Please contact with any questions and/or concerns. Thank you for the consult. Case staffed with Dr. Meyer Medications and Allergies Allergies Allergy/AdvReac Type Severity Reaction Status Date / Time No Known Allergies Allergy Verified 12/12/20 10:15 Home Medications Medication Instructions Recorded Confirmed Last Taken Type metFORMIN [Glucophage] 500 mg PO QDAY 10/19/13 12/13/20 Unknown History Benztropine [Cogentin] 0.5 mg PO BID 12/13/20 12/13/20 Unknown History Divalproex ER [DepaKOTE ER] 500 mg PO BID 12/13/20 12/13/20 Unknown History Simvastatin 40 mg PO QDAY 12/13/20 12/13/20 Unknown History amLODIPine [Norvasc] 10 mg PO DAILY 12/13/20 12/13/20 Unknown History risperiDONE [RisperDAL] 3 mg PO QHS 12/13/20 12/13/20 Unknown History traZODone [Desyrel] 50 mg PO QHS 12/13/20 12/13/20 Unknown History Mental Status Exam - Vital signs Last Vital Signs Temp 97.8 F 01/12/21 08:00 Pulse 65 01/12/21 08:00 Resp 20 01/12/21 08:00 BP 142/89 01/12/21 08:00 Pulse Ox 99 01/12/21 08:00 Results Result Diagrams: 01/11/21 17:40 01/11/21 17:40 Abnormal lab results 01/11/21 01/11/21 01/11/21 Range/Units 17:40 17:40 17:40 RBC 5.27 H (3.65-5.03) M/mm3 MCV 70 L (79-97) fl MCH 23 L (28-32) pg RDW 16.1 H (13.2-15.2) % [place] % (Auto) 7.5 H (0.0-7.3) % Glucose 145 H (65-100) mg/dL Albumin 3.3 L (3.9-5) g/dL Salicylates < 0.3 L (2.8-20.0) mg/dL Acetaminophen (10.0-30.0) ug/mL Valproic Acid (50-100) ug/mL 01/11/21 01/11/21 Range/Units 17:40 23:59 RBC (3.65-5.03) M/mm3 MCV (79-97) fl MCH (28-32) pg RDW (13.2-15.2) % [place] % (Auto) (0.0-7.3) % Glucose (65-100) mg/dL Albumin (3.9-5) g/dL Salicylates (2.8-20.0) mg/dL Acetaminophen 5.0 L (10.0-30.0) ug/mL Valproic Acid 46.0 L (50-100) ug/mL All other labs normal.
[2021-01-12 20:52] VITALS: BP 131/89
[2021-01-12] MEDS ORDERED: HALOPERIDOL 5 MG TAB PO SCH (22:00)
[2021-01-12] MEDS ORDERED: DIVALPROEX DR 250 MG TAB PO SCH (22:00)
[2021-01-12] MEDS ORDERED: BENZTROPINE 1 MG TAB PO SCH (22:00)
== END 2021-01-12 22:30 ==
LOC: ED 16:25
DX: R45.851 Suicidal ideations (principal); Z20.822 Contact with and (suspected) exposure to COVID-19; R44.0 Auditory hallucinations; I10 Essential (primary) hypertension; E11.9 Type 2 diabetes mellitus without complications; Z79.84 Long term (current) use of oral hypoglycemic drugs; Z79.899 Other long term (current) drug therapy
CPT/HCPCS: 36415; 80053; 80164; 80307; 81001; 85025; 93005; 99285; U0003; 80320; G0480

== ENCOUNTER 2021-01-12 16:18 | Inpatient (IN) | payer MEDICAID ==
--- NOTE | 2021-01-13 08:36 | History and Physical Report ---
<VINCE YI - Last Filed: 01/13/21 08:48> GP History & Physical - History of Present Illness Date of admission: 01/12/21 Date of Examination: 01/13/21 Reason for Admission: Danger to self Chief Complaint: Suicidal Ideation Legal Status: Voluntary, Involuntary Patient Problems: Current Active Problems Bipolar disorder with current episode depressed (Acute) Reaction to Hospitalization: Accepting Medications and Allergies Allergies Allergy/AdvReac Type Severity Reaction Status Date / Time No Known Allergies Allergy Verified 12/12/20 10:15 Home Medications Medication Instructions Recorded Confirmed Last Taken Type metFORMIN [Glucophage] 500 mg PO QDAY 10/19/13 01/13/21 Unknown History Benztropine [Cogentin] 0.5 mg PO BID 12/13/20 01/13/21 Unknown History Divalproex ER [DepaKOTE ER] 500 mg PO BID 12/13/20 01/13/21 Unknown History Simvastatin 40 mg PO QDAY 12/13/20 01/13/21 Unknown History amLODIPine [Norvasc] 10 mg PO DAILY 12/13/20 01/13/21 Unknown History risperiDONE [RisperDAL] 3 mg PO QHS 12/13/20 01/13/21 Unknown History traZODone [Desyrel] 50 mg PO QHS 12/13/20 01/13/21 Unknown History Past psychiatric history - past Psychiatric treatment and history psychiatric treatment history: Ana Aleman is a 65 year old female with a history of Schizophrenia, Anxiety and Bipolar who presents to the ED with auditory hallucinations/suicidal ideation. The patient was seen oin the ED. In my interview with the patient , she reports that she ran out of her retirement because of her new roommates stating " I don't want to go back there." The patient reports taking about 16 pills which she states " depakote, my heart medication and another medication." The patient states that she was on Hadol monthly LEWIS which she last took last month. The pa tim continues to endorse suicidal ideation with out a plan and auditory hallucinations. Collateral information from the patient's sister Leia-states that the patient is seeing a psychiatrist at the "[facility]" where she gets her monthly LEWIS however, she is unsure of her medication compliance. She reports seeing the patient running down the road yesterday. The patient was seen today eating breakfast with peers. She continues to endorse suicidal ideation with a plan to over dose on pills.She admits having auditory and visual hallucinations. PAST PSYCHIATRIC HISTORY: Diagnoses: Schizophrenia, Bipolar Suicide attempts or Self-harm behavior: Denies Prior psychiatric hospitalizations: unknown Substance Abuse history: unknown Previous psychiatric medications tried: Haldol, Risperdal, Benztropine Vistaril Outpatient treatment: PAST MEDICAL HISTORY: Unnown Family Psychiatric History: None reported or documented SOCIAL HISTORY Marital Status: Single Living Arrangements: Lives in a retirement Employment Status: unemployed Access to guns/weapons: none reported Education: 11th grade History of Abuse: none reported Legal History:None reported REVIEW OF SYSTEMS Constitutional: Negative for weight loss ENT: Negative for stridor Respiratory: Negative for cough or hemoptysis All other systems reviewed and are negative MENTAL STATUS EXAMINATION General Appearance: Dressed appropriately, Behavior: cooperative Mood: labile Affect and affective range: congruent with mood Thought Process: Disorganized Speech: Pressured Thought content: SI Suicidal Ideation: SI Homicidal Ideation: Denies Hallucinations:Auditory/Visual Delusions: Denies Insight and Judgment: Limited insight and judgment Memory: impaired Attention: Normal Orientation: Alert, oriented Assessment Diagnosis: (1)Bipolar, Unspecified-F31.9 Treatment Plan Patient admitted for inpatient psychiatric evaluation, medication adjustment and close monitoring The patient's behavior, mood, sleep and appetite will be closely monitored. Patient enrolled in individual and group therapeutic sessions and encouraged to attend. Patient provided with a safe and structured environment. Patient's physical health needs will be addressed by the Hospitalist. Hospitalist Consulted Labs including CBC, CMP, Lipid profile and Hemoglobin A1C levels ordered for baseline reference Social Assessment will be completed and the Industrial Tech Instructor will work with patient and family to ensure a suitable and safe disposition Medication adjustment will be made as clinically indicated Continue Home medications Usual Wellness Jain/Preservation: - Start Trazodone 50 mg po QHS & 50 mg po QHS PRN between 10 PM & 2 AM for insomnia - Start Melatonin 5 mg po QHS to promote circadian rhythm The patient agreed on the treatment plan, understood the risk, benefit, alternative treatment, potential consequence of no treatment, and gave informed consent. Estimated days: 7 Post hospital care: primary care provider, psychiatric provider Case staffed with Dr. Meyer Results - Results Labs/Vitals: Laboratory Last Values POC Glucose 107 mg/dL (70-105) H 01/13/21 06:14 Last Vital Signs Temp 98.6 F 01/13/21 00:05 Pulse 73 01/13/21 00:05 Resp 18 01/13/21 00:05 BP 151/82 01/13/21 00:05 Pulse Ox 96 01/13/21 00:05 Physical Examination - Constitutional Vitals: Vital Signs Temp Pulse Resp BP Pulse Ox 98.6 F 73 18 151/82 96 01/13/21 00:05 01/13/21 00:05 01/13/21 00:05 01/13/21 00:05 01/13/21 00:05 Temperature -Last 24 Hours Temperature 98.6 F Mental Status Exam - Vital signs Last Vital Signs Temp 98.6 F 01/13/21 00:05 Pulse 73 01/13/21 00:05 Resp 18 01/13/21 00:05 BP 151/82 01/13/21 00:05 Pulse Ox 96 01/13/21 00:05 Assessment and Plan - Psychiatric problem (1) Bipolar disorder with current episode depressed Current Visit: Yes Status: Acute Physician Certification - Certification Statement Physician Certification Statement: This is an acknowledgement statement that ANA ALEMAN is a 65 year old F who requires inpatient psychiatric admission for treatment which could reasonably be expected to improve the patient's condition for Estimated period of time patient will need to remain in the hospital: [ ] Plan for post-hospital care: [ ] <HIREN LYN R - Last Filed: 01/13/21 16:29> GP History & Physical - History of Present Illness History of Present Illness: 65-year-old female with PMH of bipolar disorder, schizophrenia, hypertension and diabetes diabetes is a poor historian due to her psychotic state. History is obtained from records and the nursing staff. She was living at a retirement and did not want to stay longer and run away. Reportedly, family stated that she was running in the streets with visual and auditory hallucinations as well as suicidal ideation. Patient is admitted to psychiatric service is consulted for the management of diabetes and hypertension. Patient is alert but with very poor attention span. She has a rambling speech talking nonstop paranoid thinks. 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 She does admit to having diabetes and hypertension but does not know how long. She does take Metformin. Current glucose levels are acceptable [id number]. BP is not significantly elevated. The only surgical history she gives is tubal ligation. Recent CBC and CMP unremarkable. Urine drug screen negative. Vital signs stable. Afebrile. Review of systems: Not possible as patient is psychotic PMH: Bipolar, schizophrenia, hypertension, diabetes Past surgical history: Tubal ligation Home Meds: Amlodipine, simvastatin, Metformin 5 mg daily, Cogentin, trazodone, long-acting Haldol injection Family history: Unknown. Allergies: None listed Medications and Allergies Active Meds: Active Medications Amlodipine Besylate (Amlodipine 10 Mg Tab) 10 mg PO DAILY [facility] Last Admin: 01/13/21 10:07 Dose: 10 mg Documented by: Benztropine Mesylate (Benztropine 0.5 Mg Tab) 0.5 mg PO BID [facility] Last Admin: 01/13/21 10:07 Dose: 0.5 mg Documented by: Divalproex Sodium (Divalproex Er 500 Mg Tab) 500 mg PO BID [facility] Last Admin: 01/13/21 10:07 Dose: 500 mg Documented by: Metformin HCl (Metformin 500 Mg Tab) 500 mg PO QDDIAB [facility] Last Admin: 01/13/21 10:10 Dose: 500 mg Documented by: Pravastatin Sodium (Pravastatin 80 Mg Tab) 80 mg PO QHS [facility] Risperidone (Risperidone 3 Mg Tab) 3 mg PO QHS [facility] Trazodone HCl (Trazodone 50 Mg Tab) 50 mg PO QHS [facility] Substance History - Substance History Drug Use: other (Patient is unable to provide reliable history.) Past psychiatric history - Past Medical History Past Medical History: diabetes, hypertension, hyperlipidemia Past Surgical History: Other (Tubal ligation) - past Psychiatric treatment and history Psych: Bipolar, Schizophrenia - Social History Social history: other (Lives in a retirement) Review of Systems ROS unobtainable: due to mental status Results - Results Labs/Vitals: Laboratory Last Values POC Glucose 107 mg/dL (70-105) H 01/13/21 06:14 Last Vital Signs Temp 97.8 F 01/13/21 07:23 Pulse 80 01/13/21 10:07 Resp 18 01/13/21 07:23 BP 140/84 01/13/21 10:07 Pulse Ox 98 01/13/21 07:23 Physical Examination - Constitutional Vitals: Vital Signs Temp Pulse Resp BP Pulse Ox 97.8 F 80 18 140/84 98 01/13/21 07:23 01/13/21 10:07 01/13/21 07:23 01/13/21 10:07 01/13/21 07:23 Temperature -Last 24 Hours Temperature 97.8 F Temperature 98.6 F General appearance: Present: no acute distress, well-nourished - EENT Eyes: Present: PERRL, EOM intact (So which flows the only just) ENT: clear oral mucosa - Neck Neck: Present: supple. Absent: carotid bruits - Respiratory Respiratory effort: normal Respiratory: bilateral: CTA - Cardiovascular Rhythm: regular - Extremities Extremities: No edema Peripheral Pulses: within normal limits - Abdominal General gastrointestinal: Present: soft, non-tender, normal bowel sounds - Integumentary Integumentary: Absent: rash - Musculoskeletal Musculoskeletal: strength equal bilaterally - Psychiatric Psychiatric: other (Incoherent paranoid rambling speech, psychotic) - Neurologic Neurologic: CNII-XII intact, no focal deficits, moves all extremities, gait normal Mental Status Exam - Vital signs Last Vital Signs Temp 97.8 F 01/13/21 07:23 Pulse 80 01/13/21 10:07 Resp 18 01/13/21 07:23 BP 140/84 01/13/21 10:07 Pulse Ox 98 01/13/21 07:23 Assessment and Plan Assessment and plan: Assessment: Known history of schizophrenia and bipolar disorders Acute on chronic psychosis Visual and auditory hallucinations Ran away from retirement and running in the streets Admitted to psychiatric unit Hypertension Diabetes mellitus with acceptable glycemic control on Metformin 5 mg daily Dyslipidemia on simvastatin Recent CBC, CMP, UA and urine drug screen unremarkable. Recommendations: Glycemic control is currently acceptable Hypertension control is acceptable, given her psychotic state hemodynamically and medically stable Obtain a TSH and hemoglobin A1c Continue Accu-Chek monitoring as it is now no other recommendations at present Thanks for the consultation We will monitor/follow her peripherally. Physician Certification - Certification Statement Physician Certification Statement: This is an acknowledgement statement that ANA ALEMAN is a 65 year old F who requires inpatient psychiatric admission for treatment which could reasonably be expected to improve the patient's condition for Estimated period of time patient will need to remain in the hospital: [ ] Plan for post-hospital care: [ ]
[2021-01-13] MEDS ORDERED: NON-FORMULARY EACH (Simvastatin [Simvastatin] 40 MG Tablet) PO SCH (10:00)
[2021-01-13] MEDS: amLODIPine 10 MG TAB PO SCH (10:07)
[2021-01-13] MEDS: DIVALPROEX ER 500 MG TAB PO SCH ×2 (10:07→21:02)
[2021-01-13] MEDS: BENZTROPINE 0.5 MG TAB PO SCH ×2 (10:07→21:02)
[2021-01-13] MEDS: metFORMIN 500 MG TAB PO SCH (10:10)
--- NOTE | 2021-01-13 11:05 | Consultation ---
Medications and Allergies Allergies Allergy/AdvReac Type Severity Reaction Status Date / Time No Known Allergies Allergy Verified 12/12/20 10:15 Home Medications Medication Instructions Recorded Confirmed Last Taken Type metFORMIN [Glucophage] 500 mg PO QDAY 10/19/13 01/13/21 Unknown History Benztropine [Cogentin] 0.5 mg PO BID 12/13/20 01/13/21 Unknown History Divalproex ER [DepaKOTE ER] 500 mg PO BID 12/13/20 01/13/21 Unknown History Simvastatin 40 mg PO QDAY 12/13/20 01/13/21 Unknown History amLODIPine [Norvasc] 10 mg PO DAILY 12/13/20 01/13/21 Unknown History risperiDONE [RisperDAL] 3 mg PO QHS 12/13/20 01/13/21 Unknown History traZODone [Desyrel] 50 mg PO QHS 12/13/20 01/13/21 Unknown History Active Meds: Active Medications Amlodipine Besylate (Amlodipine 10 Mg Tab) 10 mg PO DAILY [facility] Last Admin: 01/13/21 10:07 Dose: 10 mg Documented by: Benztropine Mesylate (Benztropine 0.5 Mg Tab) 0.5 mg PO BID [facility] Last Admin: 01/13/21 10:07 Dose: 0.5 mg Documented by: Divalproex Sodium (Divalproex Er 500 Mg Tab) 500 mg PO BID [facility] Last Admin: 01/13/21 10:07 Dose: 500 mg Documented by: Metformin HCl (Metformin 500 Mg Tab) 500 mg PO QDDIAB [facility] Last Admin: 01/13/21 10:10 Dose: 500 mg Documented by: Pravastatin Sodium (Pravastatin 80 Mg Tab) 80 mg PO QHS [facility] Risperidone (Risperidone 3 Mg Tab) 3 mg PO QHS [facility] Trazodone HCl (Trazodone 50 Mg Tab) 50 mg PO QHS [facility] Exam - Constitutional Vitals: Temp Pulse Resp BP Pulse Ox 97.8 F 80 18 140/84 98 01/13/21 07:23 01/13/21 10:07 01/13/21 07:23 01/13/21 10:07 01/13/21 07:23 Results - Labs Labs: Abnormal lab results 01/13/21 01/13/21 Range/Units 03:53 06:14 POC Glucose 128 H 107 H (70-105) mg/dL Assessment and Plan Assessment: Known history of schizophrenia and bipolar disorders Acute on chronic psychosis Visual and auditory hallucinations Ran away from [facility] and running in the streets Admitted to psychiatric unit Hypertension Diabetes mellitus with acceptable glycemic control on Metformin 5 mg daily Dyslipidemia on simvastatin Recent CBC, CMP, UA and urine drug screen unremarkable. Recommendations: Glycemic control is currently acceptable Hypertension control is acceptable, given her psychotic state hemodynamically and medically stable Obtain a TSH and hemoglobin A1c Continue Accu-Chek monitoring as it is now Continue current medications and no other recommendations at present Thanks for the consultation We will monitor/follow her peripherally.
[2021-01-13] MEDS: risperiDONE 3 MG TAB PO SCH (21:02)
[2021-01-13] MEDS: PRAVASTATIN 80 MG TAB PO SCH (21:02)
[2021-01-13] MEDS: traZODone 50 MG TAB PO SCH (21:02)
[2021-01-14 01:25] LABS: Basophils # (Auto) 0.1 K/mm3 (0.0-0.1); Eosinophils # (Auto) 0.1 K/mm3 (0.0-0.4); Eosinophils % (Auto) 1.7 % (0.0-4.3); Hematocrit 36.4 % (30.3-42.9); Hemoglobin 11.8 gm/dl (10.1-14.3); Lymphocytes # (Auto) 2.1 K/mm3 (1.2-5.4); Lymphocytes % (Auto) 29.7 % (13.4-35.0); Mean Corpuscular HGB Conc 32 % (30-34); Mean Corpuscular Volume 70 fl (79-97); Monocytes # (Auto) 0.5 K/mm3 (0.0-0.8); Monocytes % (Auto) 7.4 % (0.0-7.3); Platelet Count 172 K/mm3 (140-440); Red Cell Distribution Width 16.1 % (13.2-15.2)
[2021-01-14 01:49] LABS: Hepatitis B Surface Antigen Non-Reactive (Negative); Hepatitis C Virus Antibody Non-Reactive (NonReactive)
[2021-01-14 01:51] LABS: Alanine Aminotransferase 7 units/L (7-56); Albumin 3.4 g/dL (3.9-5); BUN/Creatinine Ratio 14; Blood Urea Nitrogen 13 mg/dL (7-17); Calcium 9.2 mg/dL (8.4-10.2); Chol/HDL Ratio 4.83 %; HDL Cholesterol 30 mg/dL (40-59); Hemolysis Index 11; LDL Cholesterol,Direct 106 mg/dL (50-130)
[2021-01-14] MEDS: DIVALPROEX ER 500 MG TAB PO SCH ×2 (09:19→21:00)
[2021-01-14] MEDS: metFORMIN 500 MG TAB PO SCH (09:19)
[2021-01-14] MEDS: BENZTROPINE 0.5 MG TAB PO SCH ×2 (09:19→21:00)
[2021-01-14] MEDS: amLODIPine 10 MG TAB PO SCH (09:20)
--- NOTE | 2021-01-14 11:34 | Progress Note ---
Subjective Date of service: 01/14/21 Principal diagnosis: Bipolar Disorder Subjective Comment: The patient was seen today. She says she is hearing voices, but was unable to tell me the nature of them. She says "I took pills. I tried to suicide my self." Shes says she needs another place to go because her roommate "talks ugly to her." She says she ran away. She says "I'm depressed." REVIEW OF SYSTEMS Constitutional: Negative for weight loss ENT: Negative for stridor Respiratory: Negative for cough or hemoptysis All other systems reviewed and are negative MENTAL STATUS EXAMINATION General Appearance: Dressed appropriately, Behavior: cooperative Mood: labile Affect and affective range: congruent with mood Thought Process: Disorganized Speech: Pressured Thought content: SI Suicidal Ideation: SI Homicidal Ideation: Denies Hallucinations: Auditory Delusions: Denies Insight and Judgment: Limited insight and judgment Memory: impaired Attention: Normal Orientation: Alert, oriented Assessment Diagnosis: (1)Bipolar, Unspecified-F31.9 Treatment Plan Patient admitted for inpatient psychiatric evaluation, medication adjustment and close monitoring The patient's behavior, mood, sleep and appetite will be closely monitored. Patient enrolled in individual and group therapeutic sessions and encouraged to attend. Patient provided with a safe and structured environment. Patient's physical health needs will be addressed by the Hospitalist. Hospitalist Consulted Labs including CBC, CMP, Lipid profile and Hemoglobin A1C levels ordered for baseline reference Valproic level Social Assessment will be completed and the Electroneurodiagnostic Technologist will work with patient and family to ensure a suitable and safe disposition Medication adjustment will be made as clinically indicated Vistaril 25mg po BID Zoloft 25mg po daily Usual Wellness Spiritism/Preservation: - Start Trazodone 50 mg po QHS & 50 mg po QHS PRN between 10 PM & 2 AM for insomnia - Start Melatonin 5 mg po QHS to promote circadian rhythm The patient agreed on the treatment plan, understood the risk, benefit, alternative treatment, potential consequence of no treatment, and gave informed consent. Estimated days: 3 Post hospital care: primary care provider, psychiatric provider Case staffed with Dr. Meyer Medications and Allergies Allergies Allergy/AdvReac Type Severity Reaction Status Date / Time No Known Allergies Allergy Verified 12/12/20 10:15 Home Medications Medication Instructions Recorded Confirmed Last Taken Type metFORMIN [Glucophage] 500 mg PO QDAY 10/19/13 01/13/21 Unknown History Benztropine [Cogentin] 0.5 mg PO BID 12/13/20 01/13/21 Unknown History Divalproex ER [DepaKOTE ER] 500 mg PO BID 12/13/20 01/13/21 Unknown History Simvastatin 40 mg PO QDAY 12/13/20 01/13/21 Unknown History amLODIPine [Norvasc] 10 mg PO DAILY 12/13/20 01/13/21 Unknown History risperiDONE [RisperDAL] 3 mg PO QHS 12/13/20 01/13/21 Unknown History traZODone [Desyrel] 50 mg PO QHS 12/13/20 01/13/21 Unknown History Active Meds: Active Medications Amlodipine Besylate (Amlodipine 10 Mg Tab) 10 mg PO DAILY [facility] Last Admin: 01/14/21 09:20 Dose: 10 mg Documented by: Benztropine Mesylate (Benztropine 0.5 Mg Tab) 0.5 mg PO BID [facility] Last Admin: 01/14/21 09:19 Dose: 0.5 mg Documented by: Divalproex Sodium (Divalproex Er 500 Mg Tab) 500 mg PO BID [facility] Last Admin: 01/14/21 09:19 Dose: 500 mg Documented by: Metformin HCl (Metformin 500 Mg Tab) 500 mg PO QDDIAB [facility] Last Admin: 01/14/21 09:19 Dose: 500 mg Documented by: Pravastatin Sodium (Pravastatin 80 Mg Tab) 80 mg PO QHS [facility] Last Admin: 01/13/21 21:02 Dose: 80 mg Documented by: Risperidone (Risperidone 3 Mg Tab) 3 mg PO QHS [facility] Last Admin: 01/13/21 21:02 Dose: 3 mg Documented by: Trazodone HCl (Trazodone 50 Mg Tab) 50 mg PO QHS [facility] Last Admin: 01/13/21 21:02 Dose: 50 mg Documented by: Results - Results Labs/Vitals: Laboratory Last Values WBC 7.0 K/mm3 (4.5-11.0) 01/14/21 00:33 RBC 5.20 M/mm3 (3.65-5.03) H 01/14/21 00:33 Hgb 11.8 gm/dl (10.1-14.3) 01/14/21 00:33 Hct 36.4 % (30.3-42.9) 01/14/21 00:33 MCV 70 fl (79-97) L 01/14/21 00:33 MCH 23 pg (28-32) L 01/14/21 00:33 MCHC 32 % (30-34) 01/14/21 00:33 RDW 16.1 % (13.2-15.2) H 01/14/21 00:33 Plt Count 172 K/mm3 (140-440) 01/14/21 00:33 Lymph % (Auto) 29.7 % (13.4-35.0) 01/14/21 00:33 Bee % (Auto) 7.4 % (0.0-7.3) H 01/14/21 00:33 Eos % (Auto) 1.7 % (0.0-4.3) 01/14/21 00:33 Baso % (Auto) 1.0 % (0.0-1.8) 01/14/21 00:33 Lymph # (Auto) 2.1 K/mm3 (1.2-5.4) 01/14/21 00:33 Bee # (Auto) 0.5 K/mm3 (0.0-0.8) 01/14/21 00:33 Eos # (Auto) 0.1 K/mm3 (0.0-0.4) 01/14/21 00:33 Baso # (Auto) 0.1 K/mm3 (0.0-0.1) 01/14/21 00:33 Seg Neutrophils % 60.2 % (40.0-70.0) 01/14/21 00:33 Seg Neutrophils # 4.2 K/mm3 (1.8-7.7) 01/14/21 00:33 Sodium 141 mmol/L (137-145) 01/14/21 00:33 Potassium 4.1 mmol/L (3.6-5.0) 01/14/21 00:33 Chloride 102.7 mmol/L (98-107) 01/14/21 00:33 Carbon Dioxide 30 mmol/L (22-30) 01/14/21 00:33 Anion Gap 12 mmol/L 01/14/21 00:33 BUN 13 mg/dL (7-17) 01/14/21 00:33 Creatinine 0.9 mg/dL (0.6-1.2) 01/14/21 00:33 Estimated GFR > 60 ml/min 01/14/21 00:33 BUN/Creatinine Ratio 14 % 01/14/21 00:33 Glucose 143 mg/dL (65-100) H 01/14/21 00:33 POC Glucose 119 mg/dL (70-105) H 01/14/21 06:29 Hemoglobin A1c 7.4 % (4-6) H 01/14/21 00:33 Calcium 9.2 mg/dL (8.4-10.2) 01/14/21 00:33 Total Bilirubin < 0.20 mg/dL (0.1-1.2) 01/14/21 00:33 AST 10 units/L (5-40) 01/14/21 00:33 ALT 7 units/L (7-56) 01/14/21 00:33 Alkaline Phosphatase 80 units/L (35-129) 01/14/21 00:33 Total Protein 6.1 g/dL (6.3-8.2) L 01/14/21 00:33 Albumin 3.4 g/dL (3.9-5) L 01/14/21 00:33 Albumin/Globulin Ratio 1.3 % 01/14/21 00:33 Triglycerides 115 mg/dL (2-149) 01/14/21 00:33 Cholesterol 145 mg/dL (50-199) 01/14/21 00:33 LDL Cholesterol Direct 106 mg/dL (50-130) 01/14/21 00:33 HDL Cholesterol 30 mg/dL (40-59) L 01/14/21 00:33 Cholesterol/HDL Ratio 4.83 % 01/14/21 00:33 TSH 2.750 mlU/mL (0.270-4.200) 01/14/21 00:33 Hepatitis A IgM Ab Non-reactive (NonReactive) 01/14/21 00:33 Hep Bs Antigen Non-reactive (Negative) 01/14/21 00:33 Hep B Core IgM Ab Non-reactive (NonReactive) 01/14/21 00:33 Hepatitis C Antibody Non-reactive (NonReactive) 01/14/21 00:33 Last Vital Signs Temp 98.4 F 01/14/21 07:32 Pulse 91 H 01/14/21 09:20 Resp 20 01/14/21 07:32 BP 142/90 07/16/21 09:20 Pulse Ox 97 01/13/21 19:23
[2021-01-14] MEDS: hydrOXYzine PAMOATE 25 MG CAP PO SCH ×2 (13:24→21:01)
[2021-01-14] MEDS: SERTRALINE 25 MG TAB PO SCH (13:24)
[2021-01-14] MEDS: traZODone 50 MG TAB PO SCH (21:00)
[2021-01-14] MEDS: risperiDONE 3 MG TAB PO SCH (21:01)
[2021-01-14] MEDS: PRAVASTATIN 80 MG TAB PO SCH (21:01)
--- NOTE | 2021-01-15 08:55 | Progress Note ---
Subjective Date of service: 01/15/21 Principal diagnosis: Bipolar Disorder Subjective Comment: Per Nurse Note: Patient spent most of her time in her room. She is calm but loud, she participate well in morning group, she denies si/hi/vh. She states she hears voices sometimes. Patient has a good appetite and is medication compliant., No distress noted, will continue to monitor. The patient was seen today, she denies SI/HI, but says she hears voices telling her to take more pills. She says she feels depressed. She is expressing concerns about her present living condition. The patient gave me permission to speak with her sister, Leia at [phone]. Spoke with the patient's sister, she says the patient needs an assistant inventory manager living facility, and not a transitional home. She says she's been trying to locate one. She says they lay her pills out for Ana to take and leaves them. She says they don't know if she takes them or not. She says Ana doesn't have any assistance at her current place. REVIEW OF SYSTEMS Constitutional: Negative for weight loss ENT: Negative for stridor Respiratory: Negative for cough or hemoptysis All other systems reviewed and are negative MENTAL STATUS EXAMINATION General Appearance: Dressed appropriately, Behavior: cooperative Mood: depressed Affect and affective range: congruent with mood Thought Process: Disorganized Speech: Pressured Thought content: SI Suicidal Ideation: SI Homicidal Ideation: Denies Hallucinations: Auditory Delusions: Denies Insight and Judgment: Limited insight and judgment Memory: impaired Attention: Normal Orientation: Alert, oriented Assessment Diagnosis: (1)Bipolar, Unspecified-F31.9 Treatment Plan Patient admitted for inpatient psychiatric evaluation, medication adjustment and close monitoring The patient's behavior, mood, sleep and appetite will be closely monitored. Patient enrolled in individual and group therapeutic sessions and encouraged to attend. Patient provided with a safe and structured environment. Patient's physical health needs will be addressed by the Hospitalist. Hospitalist Consulted Labs including CBC, CMP, Lipid profile and Hemoglobin A1C levels ordered for baseline reference Valproic level Social Assessment will be completed and the Customer Solutions Architect will work with patient and family to ensure a suitable and safe disposition Medication adjustment will be made as clinically indicated Continue Vistaril 25mg po BID Continue Zoloft 25mg po daily Usual Wellness Spiritism/Preservation: - Start Trazodone 50 mg po QHS & 50 mg po QHS PRN between 10 PM & 2 AM for insomnia - Start Melatonin 5 mg po QHS to promote circadian rhythm The patient agreed on the treatment plan, understood the risk, benefit, alternative treatment, potential consequence of no treatment, and gave informed consent. Estimated days: 3 Post hospital care: primary care provider, psychiatric provider Case staffed with Dr. Meyer Medications and Allergies Allergies Allergy/AdvReac Type Severity Reaction Status Date / Time No Known Allergies Allergy Verified 12/12/20 10:15 Home Medications Medication Instructions Recorded Confirmed Last Taken Type metFORMIN [Glucophage] 500 mg PO QDAY 10/19/13 01/13/21 Unknown History Benztropine [Cogentin] 0.5 mg PO BID 12/13/20 01/13/21 Unknown History Divalproex ER [DepaKOTE ER] 500 mg PO BID 12/13/20 01/13/21 Unknown History Simvastatin 40 mg PO QDAY 12/13/20 01/13/21 Unknown History amLODIPine [Norvasc] 10 mg PO DAILY 12/13/20 01/13/21 Unknown History risperiDONE [RisperDAL] 3 mg PO QHS 12/13/20 01/13/21 Unknown History traZODone [Desyrel] 50 mg PO QHS 12/13/20 01/13/21 Unknown History Active Meds: Active Medications Amlodipine Besylate (Amlodipine 10 Mg Tab) 10 mg PO DAILY [facility] Last Admin: 01/14/21 09:20 Dose: 10 mg Documented by: Benztropine Mesylate (Benztropine 0.5 Mg Tab) 0.5 mg PO BID [facility] Last Admin: 01/14/21 21:00 Dose: 0.5 mg Documented by: Divalproex Sodium (Divalproex Er 500 Mg Tab) 500 mg PO BID [facility] Last Admin: 01/14/21 21:00 Dose: 500 mg Documented by: Hydroxyzine Pamoate (Hydroxyzine Pamoate 25 Mg Cap) 25 mg PO BID [facility] Last Admin: 01/14/21 21:01 Dose: 25 mg Documented by: Metformin HCl (Metformin 500 Mg Tab) 500 mg PO QDDIAB [facility] Last Admin: 01/14/21 09:19 Dose: 500 mg Documented by: Pravastatin Sodium (Pravastatin 80 Mg Tab) 80 mg PO QHS [facility] Last Admin: 01/14/21 21:01 Dose: 80 mg Documented by: Risperidone (Risperidone 3 Mg Tab) 3 mg PO QHS [facility] Last Admin: 01/14/21 21:01 Dose: 3 mg Documented by: Sertraline HCl (Sertraline 25 Mg Tab) 25 mg PO QDAY [facility] Last Admin: 01/14/21 13:24 Dose: 25 mg Documented by: Trazodone HCl (Trazodone 50 Mg Tab) 50 mg PO QHS [facility] Last Admin: 01/14/21 21:00 Dose: 50 mg Documented by: Results - Results Labs/Vitals: Laboratory Last Values WBC 7.0 K/mm3 (4.5-11.0) 01/14/21 00:33 RBC 5.20 M/mm3 (3.65-5.03) H 01/14/21 00:33 Hgb 11.8 gm/dl (10.1-14.3) 01/14/21 00:33 Hct 36.4 % (30.3-42.9) 01/14/21 00:33 MCV 70 fl (79-97) L 01/14/21 00:33 MCH 23 pg (28-32) L 01/14/21 00:33 MCHC 32 % (30-34) 01/14/21 00:33 RDW 16.1 % (13.2-15.2) H 01/14/21 00:33 Plt Count 172 K/mm3 (140-440) 01/14/21 00:33 Lymph % (Auto) 29.7 % (13.4-35.0) 01/14/21 00:33 [place] % (Auto) 7.4 % (0.0-7.3) H 01/14/21 00:33 Eos % (Auto) 1.7 % (0.0-4.3) 01/14/21 00:33 Baso % (Auto) 1.0 % (0.0-1.8) 01/14/21 00:33 Lymph # (Auto) 2.1 K/mm3 (1.2-5.4) 01/14/21 00:33 [place] # (Auto) 0.5 K/mm3 (0.0-0.8) 01/14/21 00:33 Eos # (Auto) 0.1 K/mm3 (0.0-0.4) 01/14/21 00:33 Baso # (Auto) 0.1 K/mm3 (0.0-0.1) 01/14/21 00:33 Seg Neutrophils % 60.2 % (40.0-70.0) 01/14/21 00:33 Seg Neutrophils # 4.2 K/mm3 (1.8-7.7) 01/14/21 00:33 Sodium 141 mmol/L (137-145) 01/14/21 00:33 Potassium 4.1 mmol/L (3.6-5.0) 01/14/21 00:33 Chloride 102.7 mmol/L (98-107) 01/14/21 00:33 Carbon Dioxide 30 mmol/L (22-30) 01/14/21 00:33 Anion Gap 12 mmol/L 01/14/21 00:33 BUN 13 mg/dL (7-17) 01/14/21 00:33 Creatinine 0.9 mg/dL (0.6-1.2) 01/14/21 00:33 Estimated GFR > 60 ml/min 01/14/21 00:33 BUN/Creatinine Ratio 14 % 01/14/21 00:33 Glucose 143 mg/dL (65-100) H 01/14/21 00:33 POC Glucose 133 mg/dL (70-105) H 01/15/21 07:34 Hemoglobin A1c 7.4 % (4-6) H 01/14/21 00:33 Calcium 9.2 mg/dL (8.4-10.2) 01/14/21 00:33 Total Bilirubin < 0.20 mg/dL (0.1-1.2) 01/14/21 00:33 AST 10 units/L (5-40) 01/14/21 00:33 ALT 7 units/L (7-56) 01/14/21 00:33 Alkaline Phosphatase 80 units/L (35-129) 01/14/21 00:33 Total Protein 6.1 g/dL (6.3-8.2) L 01/14/21 00:33 Albumin 3.4 g/dL (3.9-5) L 01/14/21 00:33 Albumin/Globulin Ratio 1.3 % 01/14/21 00:33 Triglycerides 115 mg/dL (2-149) 01/14/21 00:33 Cholesterol 145 mg/dL (50-199) 01/14/21 00:33 LDL Cholesterol Direct 106 mg/dL (50-130) 01/14/21 00:33 HDL Cholesterol 30 mg/dL (40-59) L 01/14/21 00:33 Cholesterol/HDL Ratio 4.83 % 01/14/21 00:33 TSH 2.750 mlU/mL (0.270-4.200) 01/14/21 00:33 Hepatitis A IgM Ab Non-reactive (NonReactive) 01/14/21 00:33 Hep Bs Antigen Non-reactive (Negative) 01/14/21 00:33 Hep B Core IgM Ab Non-reactive (NonReactive) 01/14/21 00:33 Hepatitis C Antibody Non-reactive (NonReactive) 01/14/21 00:33 Last Vital Signs Temp 98.5 F 01/14/21 19:41 Pulse 60 01/14/21 19:41 Resp 16 01/14/21 19:41 BP 103/51 01/14/21 19:41 Pulse Ox 95 01/14/21 19:41
[2021-01-15] MEDS: metFORMIN 500 MG TAB PO SCH (09:00)
[2021-01-15] MEDS: BENZTROPINE 0.5 MG TAB PO SCH ×2 (10:17→21:13)
[2021-01-15] MEDS: amLODIPine 10 MG TAB PO SCH (10:17)
[2021-01-15] MEDS: hydrOXYzine PAMOATE 25 MG CAP PO SCH ×2 (10:18→21:13)
[2021-01-15] MEDS: SERTRALINE 25 MG TAB PO SCH (10:18)
[2021-01-15] MEDS: DIVALPROEX ER 500 MG TAB PO SCH ×2 (10:18→21:13)
[2021-01-15] MEDS: PRAVASTATIN 80 MG TAB PO SCH (21:13)
[2021-01-15] MEDS: traZODone 50 MG TAB PO SCH (21:13)
[2021-01-15] MEDS: risperiDONE 3 MG TAB PO SCH (21:13)
[2021-01-16] MEDS: metFORMIN 500 MG TAB PO SCH (07:39)
[2021-01-16] MEDS: hydrOXYzine PAMOATE 25 MG CAP PO SCH ×2 (09:18→21:01)
[2021-01-16] MEDS: BENZTROPINE 0.5 MG TAB PO SCH ×2 (09:18→21:01)
[2021-01-16] MEDS: SERTRALINE 25 MG TAB PO SCH (09:18)
[2021-01-16] MEDS: amLODIPine 10 MG TAB PO SCH (09:18)
[2021-01-16] MEDS: DIVALPROEX ER 500 MG TAB PO SCH ×2 (09:18→21:01)
--- NOTE | 2021-01-16 10:32 | Progress Note ---
Subjective Date of service: 01/16/21 Principal diagnosis: Bipolar Disorder Subjective Comment: The patient was seen today, she is lying down asleep but easily arouses. She was happy to hear that I spoke with her sister and that she is looking for her a different place to live. The patient says she's still hearing the voices but states "they aint saying much that I can understand." She denies SI/HI. She says "no, I love my kids and grand kids." Reason for continued inpatient treatment: The patient has improved. The source of her problems seem to be dissatisfaction with her living arrangements. Will plan for a safe discharge once has outpatient resources in place to ensue a safe discharge. REVIEW OF SYSTEMS Constitutional: Negative for weight loss ENT: Negative for stridor Respiratory: Negative for cough or hemoptysis All other systems reviewed and are negative MENTAL STATUS EXAMINATION General Appearance: Dressed appropriately, Behavior: cooperative Mood: depressed Affect and affective range: congruent with mood Thought Process: Disorganized Speech: Pressured Thought content: SI Suicidal Ideation: SI Homicidal Ideation: Denies Hallucinations: Auditory Delusions: Denies Insight and Judgment: Limited insight and judgment Memory: impaired Attention: Normal Orientation: Alert, oriented Assessment Diagnosis: (1)Bipolar, Unspecified-F31.9 Treatment Plan Patient admitted for inpatient psychiatric evaluation, medication adjustment and close monitoring The patient's behavior, mood, sleep and appetite will be closely monitored. Patient enrolled in individual and group therapeutic sessions and encouraged to attend. Patient provided with a safe and structured environment. Patient's physical health needs will be addressed by the Hospitalist. Hospitalist Consulted Labs including CBC, CMP, Lipid profile and Hemoglobin A1C levels ordered for baseline reference Valproic level 78.5 Social Assessment will be completed and the Risk Management Professional will work with patient and family to ensure a suitable and safe disposition Medication adjustment will be made as clinically indicated Continue Vistaril 25mg po BID Continue Zoloft 25mg po daily No changes today Usual Wellness Islam/Preservation: - Start Trazodone 50 mg po QHS & 50 mg po QHS PRN between 10 PM & 2 AM for insomnia - Start Melatonin 5 mg po QHS to promote circadian rhythm The patient agreed on the treatment plan, understood the risk, benefit, alternative treatment, potential consequence of no treatment, and gave informed consent. Estimated days: 1 Post hospital care: primary care provider, psychiatric provider Case staffed with Dr. Meyer Medications and Allergies Allergies Allergy/AdvReac Type Severity Reaction Status Date / Time No Known Allergies Allergy Verified 12/12/20 10:15 Home Medications Medication Instructions Recorded Confirmed Last Taken Type metFORMIN [Glucophage] 500 mg PO QDAY 10/19/13 01/13/21 Unknown History Benztropine [Cogentin] 0.5 mg PO BID 12/13/20 01/13/21 Unknown History Divalproex ER [DepaKOTE ER] 500 mg PO BID 12/13/20 01/13/21 Unknown History Simvastatin 40 mg PO QDAY 12/13/20 01/13/21 Unknown History amLODIPine [Norvasc] 10 mg PO DAILY 12/13/20 01/13/21 Unknown History risperiDONE [RisperDAL] 3 mg PO QHS 12/13/20 01/13/21 Unknown History traZODone [Desyrel] 50 mg PO QHS 12/13/20 01/13/21 Unknown History Active Meds: Active Medications Amlodipine Besylate (Amlodipine 10 Mg Tab) 10 mg PO DAILY [facility] Last Admin: 01/16/21 09:18 Dose: 10 mg Documented by: Benztropine Mesylate (Benztropine 0.5 Mg Tab) 0.5 mg PO BID [facility] Last Admin: 01/16/21 09:18 Dose: 0.5 mg Documented by: Divalproex Sodium (Divalproex Er 500 Mg Tab) 500 mg PO BID [facility] Last Admin: 01/16/21 09:18 Dose: 500 mg Documented by: Hydroxyzine Pamoate (Hydroxyzine Pamoate 25 Mg Cap) 25 mg PO BID [facility] Last Admin: 01/16/21 09:18 Dose: 25 mg Documented by: Metformin HCl (Metformin 500 Mg Tab) 500 mg PO QDDIAB [facility] Last Admin: 01/16/21 07:39 Dose: 500 mg Documented by: Pravastatin Sodium (Pravastatin 80 Mg Tab) 80 mg PO QHS [facility] Last Admin: 01/15/21 21:13 Dose: 80 mg Documented by: Risperidone (Risperidone 3 Mg Tab) 3 mg PO QHS [facility] Last Admin: 01/15/21 21:13 Dose: 3 mg Documented by: Sertraline HCl (Sertraline 25 Mg Tab) 25 mg PO QDAY [facility] Last Admin: 01/16/21 09:18 Dose: 25 mg Documented by: Trazodone HCl (Trazodone 50 Mg Tab) 50 mg PO QHS [facility] Last Admin: 01/15/21 21:13 Dose: 50 mg Documented by: Results - Results Labs/Vitals: Laboratory Last Values WBC 7.0 K/mm3 (4.5-11.0) 01/14/21 00:33 RBC 5.20 M/mm3 (3.65-5.03) H 01/14/21 00:33 Hgb 11.8 gm/dl (10.1-14.3) 01/14/21 00:33 Hct 36.4 % (30.3-42.9) 01/14/21 00:33 MCV 70 fl (79-97) L 01/14/21 00:33 MCH 23 pg (28-32) L 01/14/21 00:33 MCHC 32 % (30-34) 01/14/21 00:33 RDW 16.1 % (13.2-15.2) H 01/14/21 00:33 Plt Count 172 K/mm3 (140-440) 01/14/21 00:33 Lymph % (Auto) 29.7 % (13.4-35.0) 01/14/21 00:33 [place] % (Auto) 7.4 % (0.0-7.3) H 01/14/21 00:33 Eos % (Auto) 1.7 % (0.0-4.3) 01/14/21 00:33 Baso % (Auto) 1.0 % (0.0-1.8) 01/14/21 00:33 Lymph # (Auto) 2.1 K/mm3 (1.2-5.4) 01/14/21 00:33 [place] # (Auto) 0.5 K/mm3 (0.0-0.8) 01/14/21 00:33 Eos # (Auto) 0.1 K/mm3 (0.0-0.4) 01/14/21 00:33 Baso # (Auto) 0.1 K/mm3 (0.0-0.1) 01/14/21 00:33 Seg Neutrophils % 60.2 % (40.0-70.0) 01/14/21 00:33 Seg Neutrophils # 4.2 K/mm3 (1.8-7.7) 01/14/21 00:33 Sodium 141 mmol/L (137-145) 01/14/21 00:33 Potassium 4.1 mmol/L (3.6-5.0) 01/14/21 00:33 Chloride 102.7 mmol/L (98-107) 01/14/21 00:33 Carbon Dioxide 30 mmol/L (22-30) 01/14/21 00:33 Anion Gap 12 mmol/L 01/14/21 00:33 BUN 13 mg/dL (7-17) 01/14/21 00:33 Creatinine 0.9 mg/dL (0.6-1.2) 01/14/21 00:33 Estimated GFR > 60 ml/min 01/14/21 00:33 BUN/Creatinine Ratio 14 % 01/14/21 00:33 Glucose 143 mg/dL (65-100) H 01/14/21 00:33 POC Glucose 112 mg/dL (70-105) H 01/16/21 06:14 Hemoglobin A1c 7.4 % (4-6) H 01/14/21 00:33 Calcium 9.2 mg/dL (8.4-10.2) 01/14/21 00:33 Total Bilirubin < 0.20 mg/dL (0.1-1.2) 01/14/21 00:33 AST 10 units/L (5-40) 01/14/21 00:33 ALT 7 units/L (7-56) 01/14/21 00:33 Alkaline Phosphatase 80 units/L (35-129) 01/14/21 00:33 Total Protein 6.1 g/dL (6.3-8.2) L 01/14/21 00:33 Albumin 3.4 g/dL (3.9-5) L 01/14/21 00:33 Albumin/Globulin Ratio 1.3 % 01/14/21 00:33 Triglycerides 115 mg/dL (2-149) 01/14/21 00:33 Cholesterol 145 mg/dL (50-199) 01/14/21 00:33 LDL Cholesterol Direct 106 mg/dL (50-130) 01/14/21 00:33 HDL Cholesterol 30 mg/dL (40-59) L 01/14/21 00:33 Cholesterol/HDL Ratio 4.83 % 01/14/21 00:33 TSH 2.750 mlU/mL (0.270-4.200) 01/14/21 00:33 Valproic Acid 78.5 ug/mL (50-100) 01/16/21 05:58 Hepatitis A IgM Ab Non-reactive (NonReactive) 01/14/21 00:33 Hep Bs Antigen Non-reactive (Negative) 01/14/21 00:33 Hep B Core IgM Ab Non-reactive (NonReactive) 01/14/21 00:33 Hepatitis C Antibody Non-reactive (NonReactive) 01/14/21 00:33 Last Vital Signs Temp 98.2 F 01/16/21 08:00 Pulse 82 01/16/21 09:18 Resp 18 01/16/21 08:00 BP 148/82 01/16/21 09:18 Pulse Ox 99 01/15/21 19:13
[2021-01-16 20:13] VITALS: BP 133/65
[2021-01-16] MEDS: PRAVASTATIN 80 MG TAB PO SCH (21:01)
[2021-01-16] MEDS: traZODone 50 MG TAB PO SCH (21:01)
[2021-01-16] MEDS: risperiDONE 3 MG TAB PO SCH (21:01)
--- NOTE | 2021-01-17 10:09 | Discharge Summary ---
Providers - Providers Date of Admission: 01/12/21 16:57 Date of discharge: 01/17/21 Attending physician: FUAD SCHMITT MD 01/12/21 16:57 Consult to Physician [CONS] Routine Comment: Consulting Provider: AMINTA MARTIN Physician Instructions: Reason For Exam: Manage medical conditions Primary care physician: LINEWORKER Hospitalization Reason for admission: SI Admitting Diagnosis: F31.9 - BIPOLAR DISORDER, UNSPECIFIED Hospital course: The patient was provided inpatient psychiatric treatment with safe and supportive care, medication adjustment, adverse effect monitoring, medical evaluations, medical treatments, assessment and psycho-education. The patient's mood, cognition, behavior, moral support are improved and stabilized. St the time of discharge, the patient had no endangering behavior and no debilitating adverse effects. The patient agreed on potential consequences of no treatment and gave informed consent. 01/14 The patient was seen today. She says she is hearing voices, but was unable to tell me the nature of them. She says "I took pills. I tried to suicide my self." Shes says she needs another place to go because her roommate "talks ugly to her." She says she ran away. She says "I'm depressed." 01/15 The patient was seen today, she denies SI/HI, but says she hears voices telling her to take more pills. She says she feels depressed. She is expressing concerns about her present living condition. The patient gave me permission to speak with her sister, Leia at [phone]. Spoke with the patient's sister, she says the patient needs an therapist's assistant living facility, and not a transitional home. She says she's been trying to locate one. She says they lay her pills out for Ana to take and leaves them. She says they don't know if she takes them or not. She says Ana doesn't have any assistance at her current place. Disposition: - TO HOME OR SELFCARE Time spent for discharge: 38 Allergies/Adverse Reactions: Allergies No Known Allergies Allergy (Verified 12/12/20 10:15) Vital Signs: Last Vital Signs Temp 98.1 F 01/16/21 19:28 Pulse 57 L 01/16/21 19:28 Resp 18 01/16/21 19:28 BP 133/65 07/18/21 19:28 Pulse Ox 99 01/16/21 19:28 Last Lab: Laboratory Last Values WBC 7.0 K/mm3 (4.5-11.0) 01/14/21 00:33 RBC 5.20 M/mm3 (3.65-5.03) H 01/14/21 00:33 Hgb 11.8 gm/dl (10.1-14.3) 01/14/21 00:33 Hct 36.4 % (30.3-42.9) 01/14/21 00:33 MCV 70 fl (79-97) L 01/14/21 00:33 MCH 23 pg (28-32) L 01/14/21 00:33 MCHC 32 % (30-34) 01/14/21 00:33 RDW 16.1 % (13.2-15.2) H 01/14/21 00:33 Plt Count 172 K/mm3 (140-440) 01/14/21 00:33 Lymph % (Auto) 29.7 % (13.4-35.0) 01/14/21 00:33 [place] % (Auto) 7.4 % (0.0-7.3) H 01/14/21 00:33 Eos % (Auto) 1.7 % (0.0-4.3) 01/14/21 00:33 Baso % (Auto) 1.0 % (0.0-1.8) 01/14/21 00:33 Lymph # (Auto) 2.1 K/mm3 (1.2-5.4) 01/14/21 00:33 [place] # (Auto) 0.5 K/mm3 (0.0-0.8) 01/14/21 00:33 Eos # (Auto) 0.1 K/mm3 (0.0-0.4) 01/14/21 00:33 Baso # (Auto) 0.1 K/mm3 (0.0-0.1) 01/14/21 00:33 Seg Neutrophils % 60.2 % (40.0-70.0) 01/14/21 00:33 Seg Neutrophils # 4.2 K/mm3 (1.8-7.7) 01/14/21 00:33 Sodium 141 mmol/L (137-145) 01/14/21 00:33 Potassium 4.1 mmol/L (3.6-5.0) 01/14/21 00:33 Chloride 102.7 mmol/L (98-107) 01/14/21 00:33 Carbon Dioxide 30 mmol/L (22-30) 01/14/21 00:33 Anion Gap 12 mmol/L 01/14/21 00:33 BUN 13 mg/dL (7-17) 01/14/21 00:33 Creatinine 0.9 mg/dL (0.6-1.2) 01/14/21 00:33 Estimated GFR > 60 ml/min 01/14/21 00:33 BUN/Creatinine Ratio 14 % 01/14/21 00:33 Glucose 143 mg/dL (65-100) H 01/14/21 00:33 POC Glucose 113 mg/dL (70-105) H 01/17/21 06:34 Hemoglobin A1c 7.4 % (4-6) H 01/14/21 00:33 Calcium 9.2 mg/dL (8.4-10.2) 01/14/21 00:33 Total Bilirubin < 0.20 mg/dL (0.1-1.2) 01/14/21 00:33 AST 10 units/L (5-40) 01/14/21 00:33 ALT 7 units/L (7-56) 01/14/21 00:33 Alkaline Phosphatase 80 units/L (35-129) 01/14/21 00:33 Total Protein 6.1 g/dL (6.3-8.2) L 01/14/21 00:33 Albumin 3.4 g/dL (3.9-5) L 01/14/21 00:33 Albumin/Globulin Ratio 1.3 % 01/14/21 00:33 Triglycerides 115 mg/dL (2-149) 01/14/21 00:33 Cholesterol 145 mg/dL (50-199) 01/14/21 00:33 LDL Cholesterol Direct 106 mg/dL (50-130) 01/14/21 00:33 HDL Cholesterol 30 mg/dL (40-59) L 01/14/21 00:33 Cholesterol/HDL Ratio 4.83 % 01/14/21 00:33 TSH 2.750 mlU/mL (0.270-4.200) 01/14/21 00:33 Valproic Acid 78.5 ug/mL (50-100) 01/16/21 05:58 Hepatitis A IgM Ab Non-reactive (NonReactive) 01/14/21 00:33 Hep Bs Antigen Non-reactive (Negative) 01/14/21 00:33 Hep B Core IgM Ab Non-reactive (NonReactive) 01/14/21 00:33 Hepatitis C Antibody Non-reactive (NonReactive) 01/14/21 00:33 Core Measure Documentation - Palliative Care Palliative Care/ Comfort Measures: Not Applicable - Core Measures Any of the following diagnoses?: none Exam - Constitutional Vitals: Temp Pulse Resp BP Pulse Ox 98.1 F 57 L 18 133/65 99 01/16/21 19:28 01/16/21 19:28 01/16/21 19:28 01/16/21 19:28 01/16/21 19:28 General appearance: Present: no acute distress - EENT Eyes: Present: PERRL, EOM intact ENT: hearing intact, clear oral mucosa - Neck Neck: Present: supple, normal ROM - Respiratory Respiratory effort: normal Plan Activity: advance as tolerated Weight Bearing Status: Weight Bear as Tolerated Care Plan Goals: Maintain good and stable mental health Assessment: Bipolar Disorder Follow up with: PRIMARY CARE, [Primary Care Provider] - 7 Days Prescriptions: hydrOXYzine PAMOATE [Vistaril] 25 mg PO BID #60 capsule Sertraline [Zoloft] 25 mg PO QDAY #30 tablet
--- NOTE | 2021-01-17 10:33 | Event Note ---
Date: 01/17/21 Spoke with Miguelina hall [facility] about the patient's progress and discharge plans. She says the patient is welcome to come back and she could have picked her up but she is out of the area now. She says call her when the patient is good to go and she may be back in the area. Will inform the SW of her request.
[2021-01-17] MEDS: BENZTROPINE 0.5 MG TAB PO SCH (10:39)
[2021-01-17] MEDS: hydrOXYzine PAMOATE 25 MG CAP PO SCH (10:39)
[2021-01-17] MEDS: SERTRALINE 25 MG TAB PO SCH (10:39)
[2021-01-17] MEDS: DIVALPROEX ER 500 MG TAB PO SCH (10:39)
[2021-01-17] MEDS: amLODIPine 10 MG TAB PO SCH (10:40)
[2021-01-17] MEDS: metFORMIN 500 MG TAB PO SCH (10:40)
== END 2021-01-17 13:00 | disposition home or self-care (01) | DRG 885 ==
LOC: UNDOADMIN 16:18 → 3A 16:18 → 5A 16:57
PROVIDERS: ADMIT Psychiatry & Neurology Psychiatry; ATTEND Psychiatry & Neurology Psychiatry
DX: F31.9 Bipolar disorder, unspecified (principal); I10 Essential (primary) hypertension; E78.5 Hyperlipidemia, unspecified; F23 Brief psychotic disorder; E11.9 Type 2 diabetes mellitus without complications; Z98.51 Tubal ligation status; Z79.84 Long term (current) use of oral hypoglycemic drugs; G20 Parkinson's disease
CPT/HCPCS: 36415; 80053; 80061; 80074; 80164; 80307; 80320; 81001; 82962; 83036; 84443; 85025; 93005; G0378; A9270-GY; G0480; Q0177; U0003

== ENCOUNTER 2021-04-04 08:37 | Inpatient (IN) | payer MEDICAID ==
[2021-04-04] MEDS ORDERED: SODIUM CHLORIDE 0.9% 500 ML 500 ML IV ONE (08:46)
--- NOTE | 2021-04-04 08:50 | Emergency Department Report ---
ED General Adult HPI - General Chief complaint: Neuro Symptoms/Deficit Stated complaint: WEAKNESS PUI?: No Time Seen by Provider: 04/04/21 08:44 Source: patient, EMS (Verbal report received from emergency medical services. EMS documentation not available at time of chart dictation ), RN notes reviewed, old records reviewed Mode of arrival: Stretcher Limitations: Altered Mental Status, Physical Limitation - History of Present Illness Initial comments: The patient was evaluated in the emergency department for symptoms described in the history of present illness. He/she was evaluated in the context of the global COVID-19 pandemic, which necessitated consideration that the patient might be at risk for infection with the virus that causes COVID-19. Institutional protocols and algorithms that pertain to the evaluation of p atients at risk for COVID-19 are in a state of rapid change based on information released by regulatory bodies including the CDC and federal and state organizations. These policies and algorithms were followed during the patient's care in the emergency department. Please note that these policies, procedures and recommendations changed on a rapid basis. The patient is a 65-year-old female. She has a past history of diabetes, hypertension and high cholesterol. She also has a history of psychiatric disease, and is currently a resident of [facility]. She is brought to the hospital today by emergency medical services. The patient is confused. The patient denies physical pain. She is not sure why she is here. EMS reports that they were called for unsteady gait and confusion. The patient's last known well time is not explicitly known. EMS reports normal Accu-Chek in the field. The patient denies physical pain. The patient is not accompanied by friends or family at this time to provide co llateral information or additional information. -: unknown Improves with: other Worsens with: other - Related Data Home Medications Medication Instructions Recorded Confirmed Last Taken metFORMIN [Glucophage] 500 mg PO QDAY 10/19/13 01/13/21 Unknown Benztropine [Cogentin] 0.5 mg PO BID 12/13/20 01/13/21 Unknown Divalproex ER [Depakote ER] 500 mg PO BID 12/13/20 01/13/21 Unknown Simvastatin 40 mg PO QDAY 12/13/20 01/13/21 Unknown amLODIPine 10 mg PO DAILY 12/13/20 01/13/21 Unknown risperiDONE [RisperDAL] 3 mg PO QHS 12/13/20 01/13/21 Unknown traZODone [Desyrel] 50 mg PO QHS 12/13/20 01/13/21 Unknown Previous Rx's Medication Instructions Recorded Last Taken Type Sertraline [Zoloft] 25 mg PO QDAY #30 tablet 01/17/21 Unknown Rx hydrOXYzine PAMOATE [Vistaril] 25 mg PO BID #60 capsule 01/17/21 Unknown Rx Allergies Allergy/AdvReac Type Severity Reaction Status Date / Time No Known Allergies Allergy Verified 04/04/21 10:13 ED Review of Systems ROS: Stated complaint: WEAKNESS Other details as noted in HPI Comment: Unobtainable due to pts medical conditions Constitutional: malaise, weakness. denies: fever Cardiovascular: denies: chest pain Gastrointestinal: denies: abdominal pain Neurological: weakness, confusion, abnormal gait ED Past Medical Hx - Past Medical History Previous Medical History?: Yes Hx Hypertension: Yes Hx Diabetes: Yes Hx Psychiatric Treatment: Yes (bipolar, schizophrenia, depression) Additional medical history: high cholesterol - Social History Smoking Status: Never Smoker - Medications Home Medications: Home Medications Medication Instructions Recorded Confirmed Last Taken Type metFORMIN [Glucophage] 500 mg PO QDAY 10/19/13 01/13/21 Unknown History Benztropine [Cogentin] 0.5 mg PO BID 12/13/20 01/13/21 Unknown History Divalproex ER [Depakote ER] 500 mg PO BID 12/13/20 01/13/21 Unknown History Simvastatin 40 mg PO QDAY 12/13/20 01/13/21 Unknown History amLODIPine 10 mg PO DAILY 12/13/20 01/13/21 Unknown History risperiDONE [RisperDAL] 3 mg PO QHS 12/13/20 01/13/21 Unknown History traZODone [Desyrel] 50 mg PO QHS 12/13/20 01/13/21 Unknown History Sertraline [Zoloft] 25 mg PO QDAY #30 tablet 01/17/21 Unknown Rx hydrOXYzine PAMOATE [Vistaril] 25 mg PO BID #60 capsule 01/17/21 Unknown Rx ED Physical Exam - General Limitations: Altered Mental Status, Physical Limitation General appearance: in no apparent distress, obese - Head Head exam: Present: atraumatic, normocephalic - Eye Eye exam: Present: normal appearance, EOMI. Absent: nystagmus - ENT ENT exam: Present: normal exam, normal orophraynx, mucous membranes moist, normal external ear exam - Neck Neck exam: Present: normal inspection, full ROM. Absent: tenderness, meningismus - Respiratory Respiratory exam: Present: decreased breath sounds. Absent: respiratory distress, wheezes, rales, rhonchi, stridor - Cardiovascular Cardiovascular Exam: Present: normal rhythm, bradycardia, normal heart sounds. Absent: tachycardia, irregular rhythm, systolic murmur, diastolic murmur, rubs, gallop - GI/Abdominal GI/Abdominal exam: Present: soft. Absent: distended, tenderness, guarding, rebound, rigid, pulsatile mass - Extremities Exam Extremities exam: Present: normal inspection, full ROM, other (2+ pulses noted in the bilateral upper and lower extremities. There is no palpable cord. negative Homans sign. Muscular compartments are soft. The pelvis is stable.). Absent: pedal edema, calf tenderness - Back Exam Back exam: Present: full ROM. Absent: tenderness, CVA tenderness (R), CVA tenderness (L), paraspinal tenderness, vertebral tenderness - Neurological Exam Neurological exam: Present: altered (The patient is alert to name. She does not know the day, month or year. She knows that she is at a hospital), other (There is no facial droop. Tongue midline. EOMI. 4 out of 5 strength in 4 extremities. Sensation intact to light touch in 4 extremities.) - Psychiatric Psychiatric exam: Present: flat affect - Skin Skin exam: Present: warm, dry, intact, normal color. Absent: rash ED Course Vital Signs 04/04/21 04/04/21 04/04/21 10:00 10:15 10:31 Temperature Pulse Rate 49 L 52 L 54 L Respiratory 16 15 12 Rate Blood Pressure 133/77 101/74 Blood Pressure [Left] O2 Sat by Pulse 99 95 95 Oximetry 04/04/21 04/04/21 04/04/21 10:45 11:01 11:08 Temperature 97.2 F L Pulse Rate 55 L 48 L 48 L Respiratory 9 L 12 18 Rate Blood Pressure 95/74 Blood Pressure 97/72 [Left] O2 Sat by Pulse 100 98 98 Oximetry ED Medical Decision Making - Lab Data Result diagrams: 04/04/21 09:28 04/04/21 09:28 Vital Signs 04/04/21 04/04/21 04/04/21 10:00 10:15 10:31 Temperature Pulse Rate 49 L 52 L 54 L Respiratory 16 15 12 Rate Blood Pressure 133/77 101/74 Blood Pressure [Left] O2 Sat by Pulse 99 95 95 Oximetry 04/04/21 04/04/21 04/04/21 10:45 11:01 11:08 Temperature 97.2 F L Pulse Rate 55 L 48 L 48 L Respiratory 9 L 12 18 Rate Blood Pressure 95/74 Blood Pressure 97/72 [Left] O2 Sat by Pulse 100 98 98 Oximetry Lab Results 04/04/21 04/04/21 04/04/21 Range/Units 09:28 09:28 09:28 WBC 5.8 (4.5-11.0) K/mm3 RBC 5.56 H (3.65-5.03) M/mm3 Hgb 12.4 (10.1-14.3) gm/dl Hct 37.8 (30.3-42.9) % MCV 68 L (79-97) fl MCH 22 L (28-32) pg MCHC 33 (30-34) % RDW 17.2 H (13.2-15.2) % Plt Count 175 (140-440) K/mm3 Lymph % (Auto) 30.9 (13.4-35.0) % [place] % (Auto) 10.9 H (0.0-7.3) % Eos % (Auto) 1.2 (0.0-4.3) % Baso % (Auto) 0.5 (0.0-1.8) % Lymph # (Auto) 1.8 (1.2-5.4) K/mm3 [place] # (Auto) 0.6 (0.0-0.8) K/mm3 Eos # (Auto) 0.1 (0.0-0.4) K/mm3 Baso # (Auto) 0.0 (0.0-0.1) K/mm3 Seg Neutrophils % 56.5 (40.0-70.0) % Seg Neutrophils # 3.3 (1.8-7.7) K/mm3 PT 13.1 (12.2-14.9) Sec. INR 0.94 (0.87-1.13) APTT 26.9 (24.2-36.6) Sec. Thrombin Time 18.7 (15.1-19.6) Sec. Sodium 138 (137-145) mmol/L Potassium 4.5 (3.6-5.0) mmol/L Chloride 100.0 (98-107) mmol/L Carbon Dioxide 30 (22-30) mmol/L Anion Gap 13 mmol/L BUN 14 (7-17) mg/dL Creatinine 0.9 (0.6-1.2) mg/dL Estimated GFR > 60 ml/min BUN/Creatinine Ratio 16 % Glucose 95 (65-100) mg/dL POC Glucose (70-105) mg/dL Calcium 8.9 (8.4-10.2) mg/dL Magnesium (1.7-2.3) mg/dL Total Bilirubin 0.20 (0.1-1.2) mg/dL AST 9 (5-40) units/L ALT < 5 L (7-56) units/L Alkaline Phosphatase 71 (35-129) units/L Total Creatine Kinase 26 L (30-135) units/L CK-MB (CK-2) < 1.0 (0.0-4.0) ng/mL CK-MB (CK-2) Rel Index 3.8 (0-4) Troponin T < 0.010 (0.00-0.029) ng/mL Total Protein 6.6 (6.3-8.2) g/dL Albumin 3.2 L (3.9-5) g/dL Albumin/Globulin Ratio 0.9 % TSH (0.270-4.200) mlU/mL Salicylates (2.8-20.0) mg/dL Acetaminophen (10.0-30.0) ug/mL Valproic Acid (50-100) ug/mL Plasma/Serum Alcohol (0-0.07) % 04/04/21 04/04/21 04/04/21 Range/Units 09:28 09:28 09:28 WBC (4.5-11.0) K/mm3 RBC (3.65-5.03) M/mm3 Hgb (10.1-14.3) gm/dl Hct (30.3-42.9) % MCV (79-97) fl MCH (28-32) pg MCHC (30-34) % RDW (13.2-15.2) % Plt Count (140-440) K/mm3 Lymph % (Auto) (13.4-35.0) % [place] % (Auto) (0.0-7.3) % Eos % (Auto) (0.0-4.3) % Baso % (Auto) (0.0-1.8) % Lymph # (Auto) (1.2-5.4) K/mm3 [place] # (Auto) (0.0-0.8) K/mm3 Eos # (Auto) (0.0-0.4) K/mm3 Baso # (Auto) (0.0-0.1) K/mm3 Seg Neutrophils % (40.0-70.0) % Seg Neutrophils # (1.8-7.7) K/mm3 PT (12.2-14.9) Sec. INR (0.87-1.13) APTT (24.2-36.6) Sec. Thrombin Time (15.1-19.6) Sec. Sodium (137-145) mmol/L Potassium (3.6-5.0) mmol/L Chloride (98-107) mmol/L Carbon Dioxide (22-30) mmol/L Anion Gap mmol/L BUN (7-17) mg/dL Creatinine (0.6-1.2) mg/dL Estimated GFR ml/min BUN/Creatinine Ratio % Glucose (65-100) mg/dL POC Glucose (70-105) mg/dL Calcium (8.4-10.2) mg/dL Magnesium 1.60 L (1.7-2.3) mg/dL Total Bilirubin (0.1-1.2) mg/dL AST (5-40) units/L ALT (7-56) units/L Alkaline Phosphatase (35-129) units/L Total Creatine Kinase 25 L (30-135) units/L CK-MB (CK-2) (0.0-4.0) ng/mL CK-MB (CK-2) Rel Index (0-4) Troponin T (0.00-0.029) ng/mL Total Protein (6.3-8.2) g/dL Albumin (3.9-5) g/dL Albumin/Globulin Ratio % TSH 3.220 (0.270-4.200) mlU/mL Salicylates (2.8-20.0) mg/dL Acetaminophen (10.0-30.0) ug/mL Valproic Acid (50-100) ug/mL Plasma/Serum Alcohol < 0.01 (0-0.07) % 04/04/21 04/04/21 04/04/21 Range/Units 09:28 09:28 11:11 WBC (4.5-11.0) K/mm3 RBC (3.65-5.03) M/mm3 Hgb (10.1-14.3) gm/dl Hct (30.3-42.9) % MCV (79-97) fl MCH (28-32) pg MCHC (30-34) % RDW (13.2-15.2) % Plt Count (140-440) K/mm3 Lymph % (Auto) (13.4-35.0) % [place] % (Auto) (0.0-7.3) % Eos % (Auto) (0.0-4.3) % Baso % (Auto) (0.0-1.8) % Lymph # (Auto) (1.2-5.4) K/mm3 [place] # (Auto) (0.0-0.8) K/mm3 Eos # (Auto) (0.0-0.4) K/mm3 Baso # (Auto) (0.0-0.1) K/mm3 Seg Neutrophils % (40.0-70.0) % Seg Neutrophils # (1.8-7.7) K/mm3 PT (12.2-14.9) Sec. INR (0.87-1.13) APTT (24.2-36.6) Sec. Thrombin Time (15.1-19.6) Sec. Sodium (137-145) mmol/L Potassium (3.6-5.0) mmol/L Chloride (98-107) mmol/L Carbon Dioxide (22-30) mmol/L Anion Gap mmol/L BUN (7-17) mg/dL Creatinine (0.6-1.2) mg/dL Estimated GFR ml/min BUN/Creatinine Ratio % Glucose (65-100) mg/dL POC Glucose 78 (70-105) mg/dL Calcium (8.4-10.2) mg/dL Magnesium (1.7-2.3) mg/dL Total Bilirubin (0.1-1.2) mg/dL AST (5-40) units/L ALT (7-56) units/L Alkaline Phosphatase (35-129) units/L Total Creatine Kinase (30-135) units/L CK-MB (CK-2) (0.0-4.0) ng/mL CK-MB (CK-2) Rel Index (0-4) Troponin T (0.00-0.029) ng/mL Total Protein (6.3-8.2) g/dL Albumin (3.9-5) g/dL Albumin/Globulin Ratio % TSH (0.270-4.200) mlU/mL Salicylates < 0.3 L (2.8-20.0) mg/dL Acetaminophen 5.0 L (10.0-30.0) ug/mL Valproic Acid 82.8 (50-100) ug/mL Plasma/Serum Alcohol (0-0.07) % - EKG Data -: EKG Interpreted by Vt EKG shows normal: sinus rhythm Rate: bradycardia - EKG Data 04/04/21 11:19 EKG today is interpreted by myself at 09: 50 8 AM Sinus rhythm, rate 52 bpm, bradycardia, QTC 496 ms. Extensive motion artifact. Abnormal EKG. Not a STEMI. When compared to prior EKG, from December 2020, bradycardia is chronic. - Radiology Data Radiology results: pending, report reviewed, image reviewed CT BRAIN: 04/04/2021 INDICATION / CLINICAL INFORMATION: CALL REPORT [phone] Code Stroke AMS, weakness. COMPARISON: None available. FINDINGS: BRAIN/INTRACRANIAL STRUCTURES: Unenhanced CT images of the brain demonstrate no evidence of acute intracranial abnormality. Ventricles and sulci are prominent in size, consistent with prominent diffuse cerebral atrophy. There is no CT evidence of acute large vessel territory ischemic injury, hemorrhage, or mass. There are no abnormal extra-axial fluid collections. EXTRACRANIAL STRUCTURES: Unremarkable. IMPRESSION: No acute abnormality. Notification: Emergency department physician Dr. Godinez . at [address] scans at this location are performed using dose reduction to ALARA by means of automated exposure control. Signer Name: Paolo Mckeon MD Signed: 04/04/2021 8:15 AM Workstation Name: [id number] CTA NECK WITH CONTRAST 04/04/2021 INDICATION / CLINICAL INFORMATION: stroke sx CODE STOKE 100ml of 350 omnipaque given,, generalize weakness, AMS, no LKW. COMPARISON: None. TECHNIQUE: Routine CTA of the neck is performed. 3-D/MIP reformats were postprocessed. Percentage stenosis is determined by direct quantitative measurements of diseased internal carotid artery diameter compared with normal distal internal carotid artery reference segments or by criteria similar to NASCET where applicable. All CT scans at this location are performed using CT dose reduction for ALARA by means of automated exposure control. CONTRAST: 100 ml of Omnipaque 350 FINDINGS: Carotid bifurcations: There is no evidence of carotid bifurcation stenosis. Carotid arteries: No significant abno rmality. Cervical vertebral arteries: No significant abnormality. Aortic arch: No significant abnormality. None. IMPRESSION: No significant abnormality. Signer Name: Paolo Mckeon MD Signed: 04/04/2021 8:26 AM Workstation Name: [id number] CTA HEAD WITH CONTRAST 04/04/2021 HISTORY: CODE STOKE 100ml of 350 omnipaque given,, generalize weakness, AMS, no LKW. COMPARISON: None. TECHNIQUE: All CT scans at this location are performed using CT dose reduction for ALARA by means of automated exposure control.. 3-D/MIP reformats postprocessed. Percentage stenosis is determined by direct quantitative measurements of diseased internal carotid artery diameter compared with normal distal internal carotid artery reference segments or by criteria similar to NASCET where applicable. CONTRAST: 100 ml of Omnipaque 350 FINDINGS: CTA HEAD: Intracranial vertebral arteries: No significant abnormality. Basilar artery: No significant abnormality. Posterior cerebral arteries: No significant abnormality. Intracranial internal carotid arteries: Atherosclerotic calcification and irregularity along the course of the distal internal carotid arteries bilaterally, slightly more prominently on the right. Anterior cerebral arteries: No significant abnormality. Middle cerebral arteries: No significant abnormality. Dural venous sinuses:Not optimally opacified. No significant abnormality. Additional findings: None. IMPRESSION: 1. No significant abnormality. Signer Name: Paolo Mckeon MD Signed: 04/04/2021 8:29 AM Workstation Name: [id number] CHEST 1 VIEW 04/04/2021 9:10 AM INDICATION / CLINICAL INFORMATION: Altered mental status. COMPARISON: None available. FINDINGS: SUPPORT DEVICES: None. HEART / MEDIASTINUM: The heart size is borderline with a left ventricular configuration. Pulmonary vasculature is normal. There is mild aortic tortuosity without aneurysm. LUNGS / PLEURA: No significant pulmonary or pleural abnormality. No pneumothorax. ADDITIONAL FINDINGS: No significant additional findings. IMPRESSION: No acute findings. Signer Name: Richard Watson MD Signed: 04/04/2021 8:36 AM Workstation Name: [email or web address] - Medical Decision Making Differential diagnosis, including but not limited to: Pneumonia, urinary tract infection, thyroid derangement, electrolyte derangement, subacute stroke, large vessel occlusion, intracranial hemorrhage Assessment and plan: 65-year-old female, who was afebrile, with reassuring vital signs, with chronic bradycardia, presenting with confusion, altered mental status, and report of unsteady gait. The patient's last known well time is not explicitly known. She is therefore not a TPA candidate. A CT scan of the brain, CT angiogram head and neck were negative for acute findings. X-ray the chest unremarkable. Laboratory studies so far nonactionable, with the exception of mild hypomagnesemia. Discussed the patient's history, physical, clinical impression with neurology on-call, [place] Admission is recommended for supportive care and further diagnostic work-up. Patient afebrile rectally. Awaiting urinalysis. Blood pressure in the high 90s, IV fluids ordered, empiric bolus/dose of calcium gluconate ordered x1. Hospital physician, Poncho Shah to admit to [facility] Critical care attestation.: If time is entered above; I have spent that time in minutes in the direct care of this critically ill patient, excluding procedure time. ED Disposition Clinical Impression: Acute encephalopathy, Hypomagnesemia, History of unsteady gait, Hypotension Disposition: ADMITTED INPATIENT Is pt being admited?: Yes Does the pt Need Aspirin: Yes Condition: Good - Assessment Assessment Interval: Baseline - Level of Consciousness 1a. Level of Consciousness: alert/keenly responsive - LOC Questions 1b. LOC Questions: answers 1 question correctly - LOC Command 1c. LOC Commands: performs tasks correctly - Best Gaze 2. Best Gaze: normal - Visual 3. Visual: no visual loss - Facial Palsy 4. Facial Palsy: normal symmetrical movement - Motor Arm 5a. Motor Arm Left: drift 5b. Motor Arm Right: drift - Motor Leg 6a. Motor Leg Left: drift 6b. Motor Leg Right: drift - Limb Ataxia 7. Limb Ataxia: absent - Sensory 8. Sensory: normal - Best Language 9. Best Language: no aphasia - Dysarthria 10. Dysarthria: normal - Extinction and Inattention 11. Extinction/Inattention: visual/tactile inattention - Scoring Total Score: 6 Stroke Severity: Moderate Stroke
--- NOTE | 2021-04-04 09:20 | Cat Scan Report ---
CT BRAIN: 04/04/2021 INDICATION / CLINICAL INFORMATION: CALL REPORT [phone] Code Stroke AMS, weakness. COMPARISON: None available. FINDINGS: BRAIN/INTRACRANIAL STRUCTURES: Unenhanced CT images of the brain demonstrate no evidence of acute int racranial abnormality. Ventricles and sulci are prominent in size, consistent with prominent diffuse cerebral atrophy. There is no CT evidence of acute large vessel territory ischemic injury, hemorrhage, or mass. There a re no abnormal extra-axial fluid collections. EXTRACRANIAL STRUCTURES: Unremarkable. IMPRESSION: No acute abnormality. Notification: Emergency department physician Dr. Godinez . at [address] scans at this location are performed using dose reduction to ALARA by means of automated expos ure control. Signer Name: Paolo Mckeon MD Signed: 04/04/2021 9:15 AM Workstation Name: [id number]
--- NOTE | 2021-04-04 09:20 | Consultation ---
History of Present Illness - Reason for Consult Consult date: 04/04/21 - History of Present Illness [facility] Consult Note # Demographics Consult Type: Acute Stroke Level 2 (4.5-24 hrs) Patient Location: Emergency Room First Name: Ana Last Name: Cosmo Date of : 1955 Age: 65 Gender: Female Facility: [facility] Time of Initial Page (): 04/04/2021, 08:48 Time of Return Call (): 04/04/2021, 08:48 # HPI History: 65yo woman who was LKN at unknown time. She lives [place]. She was noted to have increased weakness and fatigue. There is no focal weakness noted. She is a poor historian. She required 2 person assist to walk. # Scores Time of exam and NIHSS (): 04/04/2021, 08:54 Level of Consciousness 1a: [0] = Alert; keenly responsive LOC Questions 1b: [1] = Answers one correctly LOC Commands 1c: [0] = Performs both tasks correctly Best Gaze 2: [0] = Normal Visual 3: [0] = No visual loss Facial Palsy 4: [0] = Normal symmetrical movements Motor Arm Left 5a: [0] = No drift Motor Arm Right 5b: [0] = No drift Motor Leg Left 6a: [0] = No drift Motor Leg Right 6b: [0] = No drift Limb Ataxia 7: [0] = Absent Sensory 8: [0] = Normal Best Language 9: [0] = No aphasia Dysarthria 10: [0] = Normal Extinction and Inattention 11: [0] = No abnormality NIHSS Total: 1 # Data Time Head CT personally read by me (): 04/04/2021, 08:[address]: no bleed # Assessment Impression: Altered Mental Status # Plan Thrombolytic/Intervention: NOT IV Thrombolysis or IA Intervention candidate Labs: Ammonia B12 comprehensive metabolic panel liver function tests troponin TSH urine drug screen ua Imaging: (urgency: STAT): CT Angiogram Head and CT Angiogram Neck Imaging: (urgency: routine): MRI Brain without contrast if no other cause of change in mentation found Medications and Allergies Allergies Allergy/AdvReac Type Severity Reaction Status Date / Time No Known Allergies Allergy Verified 12/12/20 10:15 Home Medications Medication Instructions Recorded Confirmed Last Taken Type metFORMIN [Glucophage] 500 mg PO QDAY 10/19/13 01/13/21 Unknown History Benztropine [Cogentin] 0.5 mg PO BID 12/13/20 01/13/21 Unknown History Divalproex ER [Depakote ER] 500 mg PO BID 12/13/20 01/13/21 Unknown History Simvastatin 40 mg PO QDAY 12/13/20 01/13/21 Unknown History amLODIPine 10 mg PO DAILY 12/13/20 01/13/21 Unknown History risperiDONE [RisperDAL] 3 mg PO QHS 12/13/20 01/13/21 Unknown History traZODone [Desyrel] 50 mg PO QHS 12/13/20 01/13/21 Unknown History Sertraline [Zoloft] 25 mg PO QDAY #30 tablet 01/17/21 Unknown Rx hydrOXYzine PAMOATE [Vistaril] 25 mg PO BID #60 capsule 01/17/21 Unknown Rx
--- NOTE | 2021-04-04 09:30 | Cat Scan Report ---
CTA NECK WITH CONTRAST 04/04/2021 INDICATION / CLINICAL INFORMATION: stroke sx CODE STOKE 100ml of 350 omnipaque given,, generalize weakness, AMS, no LKW. COMPARISON: None. TECHNIQUE: Routine CTA of the neck is performed. 3-D/MIP reformats were postprocessed. Percentage st enosis is determined by direct quantitative measurements of diseased internal carotid artery diameter compared with normal distal internal carotid artery reference segments or by criteria similar to BLADIMIR CET where applicable. All CT scans at this location are performed using CT dose reduction for ALARA b y means of automated exposure control. CONTRAST: 100 ml of Omnipaque 350 FINDINGS: Carotid bifurcations: There is no evidence of carotid bifurcation stenosis. Carotid arteries: No significant abnormality. Cervical vertebral arteries: No significant abnormality. Aortic arch: No significant abnormality. None. IMPRESSION: No significant abnormality. Signer Name: Paolo Mckeon MD Signed: 04/04/2021 9:26 AM Workstation Name: [id number]
--- NOTE | 2021-04-04 09:33 | Cat Scan Report ---
CTA HEAD WITH CONTRAST 04/04/2021 HISTORY: CODE STOKE 100ml of 350 omnipaque given,, generalize weakness, AMS, no LKW. COMPARISON: None. TECHNIQUE: All CT scans at this location are performed using CT dose reduction for ALARA by means of automated exposure control.. 3-D/MIP reformats postprocessed. Percentage stenosis is determined by d irect quantitative measurements of diseased internal carotid artery diameter compared with normal dis glory internal carotid artery reference segments or by criteria similar to NASCET where applicable. CONTRAST: 100 ml of Omnipaque 350 FINDINGS: CTA HEAD: Intracranial vertebral arteries: No significant abnormality. Basilar artery: No significant abnormality. Posterior cerebral arteries: No significant abnormality. Intracranial internal carotid arteries: Atherosclerotic calcification and irregularity along the cour se of the distal internal carotid arteries bilaterally, slightly more prominently on the right. Anterior cerebral arteries: No significant abnormality. Middle cerebral arteries: No significant abnormality. Dural venous sinuses:Not optimally opacified. No significant abnormality. Additional findings: None. IMPRESSION: 1. No significant abnormality. Signer Name: Paolo Mckeon MD Signed: 04/04/2021 9:29 AM Workstation Name: [id number]
--- NOTE | 2021-04-04 09:41 | XRay Report ---
CHEST 1 VIEW 04/04/2021 9:10 AM INDICATION / CLINICAL INFORMATION: Altered mental status. COMPARISON: None available. FINDINGS: SUPPORT DEVICES: None. HEART / MEDIASTINUM: The heart size is borderline with a left ventricular configuration. Pulmonary va sculature is normal. There is mild aortic tortuosity without aneurysm. LUNGS / PLEURA: No significant pulmonary or pleural abnormality. No pneumothorax. ADDITIONAL FINDINGS: No significant additional findings. IMPRESSION: No acute findings. Signer Name: Richard Watson MD Signed: 04/04/2021 9:36 AM Workstation Name: [facility]
[2021-04-04 09:47] LABS: Basophils % (Auto) 0.5 % (0.0-1.8); Eosinophils # (Auto) 0.1 K/mm3 (0.0-0.4); Eosinophils % (Auto) 1.2 % (0.0-4.3); Hematocrit 37.8 % (30.3-42.9); Hemoglobin 12.4 gm/dl (10.1-14.3); Lymphocytes # (Auto) 1.8 K/mm3 (1.2-5.4); Lymphocytes % (Auto) 30.9 % (13.4-35.0); Mean Corpuscular HGB Conc 33 % (30-34); Monocytes # (Auto) 0.6 K/mm3 (0.0-0.8); Monocytes % (Auto) 10.9 % (0.0-7.3); Platelet Count 175 K/mm3 (140-440); Red Blood Count 5.56 M/mm3 (3.65-5.03); Red Cell Distribution Width 17.2 % (13.2-15.2)
[2021-04-04 09:51] LABS: Mean Corpuscular Volume 68 fl (79-97)
[2021-04-04 10:06] LABS: INR 0.94 (0.87-1.13); Partial Thromboplastin Time 26.9 Sec. (24.2-36.6)
[2021-04-04 10:07] LABS: Thrombin Time 18.7 Sec. (15.1-19.6)
[2021-04-04 10:14] LABS: Albumin 3.2 g/dL (3.9-5); BUN/Creatinine Ratio 16; Blood Urea Nitrogen 14 mg/dL (7-17); Calcium 8.9 mg/dL (8.4-10.2); Hemolysis Index 4
[2021-04-04 10:24] LABS: Alanine Aminotransferase < 5 units/L (7-56); Creatine Kinase MB < 1.0 ng/mL (0.0-4.0)
[2021-04-04] MEDS ORDERED: MAGNESIUM OXIDE 400 MG TAB PO STA (11:15)
[2021-04-04] MEDS ORDERED: LACTATED RINGERS 1,000 ML IV ONE (11:15)
[2021-04-04] MEDS ORDERED: ASPIRIN 81 MG TAB CHEW PO ONE (11:26)
[2021-04-04] MEDS ORDERED: CALCIUM GLUCONATE 1,000 MG in SODIUM CHLORIDE 0.9% 100 ML IV ONE (12:00)
[2021-04-04 14:28] LABS: Bacteria,Urine 1+ /HPF (Negative); Bilirubin,Urine NEG (Negative); Blood,Urine NEG (Negative); Color,Urine Yellow (Yellow); Protein,Urine <15 mg/dL mg/dL (Negative); Urobilinogen,Urine < 2.0 mg/dL (<2.0)
[2021-04-04 14:36] LABS: Amphetamine Screen,Urine Negative; Benzodiazepines Screen,Urine Negative; Cannabinoid Screen,Urine Negative; Cocaine Screen,Urine Negative; Methadone Screen,Urine Negative; Opiate Screen,Urine Negative
--- NOTE | 2021-04-04 21:53 | History and Physical Report ---
History of Present Illness Date of examination: 04/04/21 Date of admission: 04/04/21 11:26 Chief complaint: Altered sensorium since a.m. History of present illness: 65-year-old female with history of hypertension, insulin-dependent diabetes and psychiatric history on Depakote and Risperdal sent in from [facility] for increasing confusion and unsteady gait. No fever. Patient sent by EMS for confusion. Patient's last well-known time is not known. Normal Accu-Chek in the field. Vaccination status is not known. Exposure to coronavirus is not known. ER course patient was confused and altered during my examination. - Past Medical History --Previous Medical History?: Yes --Hypertension: Yes --Diabetes: Yes --Psychiatric Treatment: Yes (bipolar, schizophrenia, depression) --Additional medical history: high cholesterol -Surgical history --patient unable to elaborate - Social History Smoking Status: Never Smoker -Family history --patient unable to elaborate - Medications Home Medications: Home Medications Medication Instructions Recorded Confirmed Last Taken Type metFORMIN [Glucophage] 500 mg PO QDAY 10/19/13 01/13/21 Unknown History Benztropine [Cogentin] 0.5 mg PO BID 12/13/20 01/13/21 Unknown History Divalproex ER [Depakote ER] 500 mg PO BID 12/13/20 01/13/21 Unknown History Simvastatin 40 mg PO QDAY 12/13/20 01/13/21 Unknown History amLODIPine 10 mg PO DAILY 12/13/20 01/13/21 Unknown History risperiDONE [RisperDAL] 3 mg PO QHS 12/13/20 01/13/21 Unknown History traZODone [Desyrel] 50 mg PO QHS 12/13/20 01/13/21 Unknown History Sertraline [Zoloft] 25 mg PO QDAY #30 tablet 01/17/21 Unknown Rx hydrOXYzine PAMOATE [Vistaril] 25 mg PO BID #60 capsule 01/17/21 Unknown Rx Review of Systems -ROS: Stated complaint: WEAKNESS Other details as noted in HPI Comment: Unobtainable due to pts medical conditions Constitutional: malaise, weakness. denies: fever Cardiovascular: denies: chest pain Gastrointestinal: denies: abdominal pain Neurological: weakness, confusion, abnormal gait Medications and Allergies Allergies Allergy/AdvReac Type Severity Reaction Status Date / Time No Known Allergies Allergy Verified 04/04/21 10:13 Home Medications Medication Instructions Recorded Confirmed Last Taken Type metFORMIN [Glucophage] 500 mg PO QDAY 10/19/13 01/13/21 Unknown History Benztropine [Cogentin] 0.5 mg PO BID 12/13/20 01/13/21 Unknown History Divalproex ER [Depakote ER] 500 mg PO BID 12/13/20 01/13/21 Unknown History Simvastatin 40 mg PO QDAY 12/13/20 01/13/21 Unknown History amLODIPine 10 mg PO DAILY 12/13/20 01/13/21 Unknown History risperiDONE [RisperDAL] 3 mg PO QHS 12/13/20 01/13/21 Unknown History traZODone [Desyrel] 50 mg PO QHS 12/13/20 01/13/21 Unknown History Sertraline [Zoloft] 25 mg PO QDAY #30 tablet 01/17/21 Unknown Rx hydrOXYzine PAMOATE [Vistaril] 25 mg PO BID #60 capsule 01/17/21 Unknown Rx Exam - Constitutional Vitals: Temp Pulse Resp BP Pulse Ox 98.3 F 67 11 L 121/73 98 04/04/21 20:03 04/04/21 20:03 04/04/21 14:15 04/04/21 20:03 04/04/21 20:03 General appearance: Present: no acute distress, well-nourished - EENT Eyes: Present: PERRL ENT: hearing intact, clear oral mucosa - Neck Neck: Present: supple, normal ROM - Respiratory Respiratory effort: normal Respiratory: bilateral: CTA - Cardiovascular Heart Sounds: Present: S1 & S2. Absent: rub, click - Extremities Extremities: pulses symmetrical, No edema Peripheral Pulses: within normal limits - Abdominal General gastrointestinal: Present: soft, non-tender, non-distended, normal bowel sounds Female genitourinary: Present: normal - Integumentary Integumentary: Present: clear, warm, dry - Musculoskeletal Musculoskeletal: gait normal, strength equal bilaterally - Psychiatric Psychiatric: appropriate mood/affect, intact judgment & insight - Neurologic Neurologic: CNII-XII intact, moves all extremities HEART Score - HEART Score Troponin: Troponin T < 0.010 ng/mL (0.00-0.029) 04/04/21 09:28 Results - Labs CBC & Chem 7: 04/05/21 05:55 04/05/21 05:55 Labs: Laboratory Last Values WBC 5.8 K/mm3 (4.5-11.0) 04/04/21 09: RBC 5.56 M/mm3 (3.65-5.03) H 04/04/21 09: Hgb 12.4 gm/dl (10.1-14.3) 04/04/21 09: Hct 37.8 % (30.3-42.9) 04/04/21 09: MCV 68 fl (79-97) L 04/04/21: MCH 22 pg (28-32) L 04/04/21: MCHC 33 % (30-34) 04/04/21 09: RDW 17.2 % (13.2-15.2) H 04/04/21 09: Plt Count 175 K/mm3 (140-440) 04/04/21 09: Lymph % (Auto) 30.9 % (13.4-35.0) 04/04/21 09: [place] % (Auto) 10.9 % (0.0-7.3) H 04/04/21: Eos % (Auto) 1.2 % (0.0-4.3) 04/04/21: Baso % (Auto) 0.5 % (0.0-1.8) 04/04/21 09: Lymph # (Auto) 1.8 K/mm3 (1.2-5.4) 04/04/21: [place] # (Auto) 0.6 K/mm3 (0.0-0.8) 04/04/21 09: Eos # (Auto) 0.1 K/mm3 (0.0-0.4) 04/04/21: Baso # (Auto) 0.0 K/mm3 (0.0-0.1) 04/04/21 09: Seg Neutrophils % 56.5 % (40.0-70.0) 04/04/21 09: Seg Neutrophils # 3.3 K/mm3 (1.8-7.7) 04/04/21 09: PT 13.1 Sec. (12.2-14.9) 04/04/21 09:28 INR 0.94 (0.87-1.13) 04/04/21 09:28 APTT 26.9 Sec. (24.2-36.6) 04/04/21 09:28 Thrombin Time 18.7 Sec. (15.1-19.6) 04/04/21 09:28 Sodium 138 mmol/L (137-145) 04/04/21 09:28 Potassium 4.5 mmol/L (3.6-5.0) 04/04/21 09:28 Chloride 100.0 mmol/L (98-107) 04/04/21 09:28 Carbon Dioxide 30 mmol/L (22-30) 04/04/21 09:28 Anion Gap 13 mmol/L 04/04/21 09:28 BUN 14 mg/dL (7-17) 04/04/21 09:28 Creatinine 0.9 mg/dL (0.6-1.2) 04/04/21 09:28 Estimated GFR > 60 ml/min 04/04/21 09:28 BUN/Creatinine Ratio 16 % 04/04/21 09:28 Glucose 95 mg/dL (65-100) 04/04/21 09:28 POC Glucose 78 mg/dL (70-105) 04/04/21 11:11 Lactic Acid 1.10 mmol/L (0.7-2.0) 04/04/21 11:49 Calcium 8.9 mg/dL (8.4-10.2) 04/04/21 09:28 Magnesium 1.60 mg/dL (1.7-2.3) L 04/04/21 09:28 Total Bilirubin 0.20 mg/dL (0.1-1.2) 04/04/21 09:28 AST 9 units/L (5-40) 04/04/21 09:28 ALT < 5 units/L (7-56) L 04/04/21 09:28 Alkaline Phosphatase 71 units/L (35-129) 04/04/21 09:28 Total Creatine Kinase 25 units/L (30-135) L 04/04/21 09:28 Total Creatine Kinase 26 units/L (30-135) L 04/04/21 09:28 CK-MB (CK-2) < 1.0 ng/mL (0.0-4.0) 04/04/21 09:28 CK-MB (CK-2) Rel Index 3.8 (0-4) 04/04/21 09: Troponin T < 0.010 ng/mL (0.00-0.029) 04/04/21 09:28 Total Protein 6.6 g/dL (6.3-8.2) 04/04/21 09: Albumin 3.2 g/dL (3.9-5) L 04/04/21 09: Albumin/Globulin Ratio 0.9 % 04/04/21: TSH 3.220 mlU/mL (0.270-4.200) 04/04/21 09:28 Urine Color Yellow (Yellow) 04/04/21 Unknown Urine Turbidity Clear (Clear) 04/04/21 Unknown Urine pH 7.0 (5.0-7.0) 04/04/21 Unknown Urine Protein <15 mg/dl mg/dL (Negative) 04/04/21 Unknown Urine Glucose (UA) Neg mg/dL (Negative) 04/04/21 Unknown Urine Ketones Neg mg/dL (Negative) 04/04/21 Unknown Urine Blood Neg (Negative) 04/04/21 Unknown Urine Nitrite Neg (Negative) 04/04/21 Unknown Urine Bilirubin Neg (Negative) 04/04/21 Unknown Urine Urobilinogen < 2.0 mg/dL (<2.0) 04/04/21 Unknown Ur Leukocyte Esterase Neg (Negative) 04/04/21 Unknown Urine WBC (Auto) 1.0 /HPF (0.0-6.0) 04/04/21 Unknown Urine RBC (Auto) 11.0 /HPF (0.0-6.0) 04/04/21 Unknown U Epithel Cells (Auto) 4.0 /HPF (0-13.0) 04/04/21 Unknown Urine Bacteria (Auto) 1+ /HPF (Negative) 04/04/21 Unknown Salicylates < 0.3 mg/dL (2.8-20.0) L 04/04/21 09:28 Urine Opiates Screen Negative 04/04/21 Unknown Urine Methadone Screen Negative 04/04/21 Unknown Acetaminophen 5.0 ug/mL (10.0-30.0) L 04/04/21 09:28 Ur Barbiturates Screen Negative 04/04/21 Unknown Valproic Acid 82.8 ug/mL (50-100) 04/04/21 09:28 Ur Phencyclidine Scrn Negative 04/04/21 Unknown Ur Amphetamines Screen Negative 04/04/21 Unknown U Benzodiazepines Scrn Negative 04/04/21 Unknown Urine Cocaine Screen Negative 04/04/21 Unknown U Marijuana (THC) Screen Negative 04/04/21 Unknown Drugs of Abuse Note Disclamer 04/04/21 Unknown Plasma/Serum Alcohol < 0.01 % (0-0.07) 04/04/21 09:28 Microbiology: Microbiology 04/04/21 11:49 Peripheral/Venous Blood Culture - Preliminary Culture in Progress 04/04/21 11:49 Peripheral/Venous Blood Culture - Preliminary Culture in Progress - Imaging and Cardiology EKG: report reviewed Chest x-ray: report reviewed CT Scan - head: report reviewed Imaging and Cardiology: Chest x-ray No acute findings Head CT neck CTA and head CTA No acute findings Assessment and Plan Advance Directives: Yes (Full code) VTE prophylaxis?: Chemical Plan of care discussed with patient/family: Yes - Patient Problems (1) Acute encephalopathy Current Visit: Yes Status: Acute Plan to address problem: Etiology unclear Neuro consult requested MR brain requested Underlying psychiatric problems Mental health consult requested (2) Hypomagnesemia Current Visit: Yes Status: Acute Plan to address problem: Supplemented (3) Hypertension Current Visit: Yes Status: Chronic Qualifiers: Hypertension type: primary hypertension Qualified Code(s): I10 - Essential (primary) hypertension Plan to address problem: Continue antihypertensives and adjust medications (4) T2DM (type 2 diabetes mellitus) Current Visit: Yes Status: Chronic Qualifiers: Diabetes mellitus senior living 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
[2021-04-04] MEDS ORDERED: ACETAMINOPHEN 325 MG TAB PO PRN (21:56)
[2021-04-04] MEDS ORDERED: ONDANSETRON 4 MG/2 ML INJ IV PRN (21:56)
[2021-04-04] MEDS ORDERED: oxyCODONE /ACETAMINOPHEN 5-325MG TAB PO PRN (21:56)
[2021-04-04] MEDS ORDERED: HYDROmorphone 1 MG/1 ML INJ IV PRN (21:56)
[2021-04-04] MEDS: hydrOXYzine PAMOATE 25 MG CAP PO SCH (22:51)
[2021-04-04] MEDS: SODIUM CHLORIDE 0.9% 1000 ML 1,000 ML IV SCH (22:51)
[2021-04-04] MEDS: BENZTROPINE 0.5 MG TAB PO SCH (22:51)
[2021-04-04] MEDS: DIVALPROEX ER 500 MG TAB PO SCH (22:52)
[2021-04-04] MEDS: risperiDONE 3 MG TAB PO SCH (22:52)
[2021-04-04] MEDS: amLODIPine 10 MG TAB PO SCH (22:53)
[2021-04-04] MEDS: traZODone 50 MG TAB PO SCH (22:53)
[2021-04-04] MEDS: FAMOTIDINE 20 MG TAB PO SCH (22:53)
[2021-04-04] MEDS: PRAVASTATIN 80 MG TAB PO SCH (22:53)
[2021-04-04] MEDS: HEPARIN 5,000 UNIT/1 ML VIAL SUB-Q SCH (22:54)
[2021-04-05 06:22] LABS: Basophils % (Auto) 0.6 % (0.0-1.8); Eosinophils # (Auto) 0.1 K/mm3 (0.0-0.4); Eosinophils % (Auto) 1.6 % (0.0-4.3); Hematocrit 36.7 % (30.3-42.9); Hemoglobin 11.8 gm/dl (10.1-14.3); Lymphocytes # (Auto) 1.9 K/mm3 (1.2-5.4); Lymphocytes % (Auto) 34.2 % (13.4-35.0); Mean Corpuscular HGB Conc 32 % (30-34); Monocytes # (Auto) 0.6 K/mm3 (0.0-0.8); Monocytes % (Auto) 11.6 % (0.0-7.3); Platelet Count 183 K/mm3 (140-440); Red Blood Count 5.35 M/mm3 (3.65-5.03); Red Cell Distribution Width 17.2 % (13.2-15.2)
[2021-04-05 06:24] LABS: Mean Corpuscular Volume 69 fl (79-97)
[2021-04-05 06:41] LABS: BUN/Creatinine Ratio 16; Blood Urea Nitrogen 13 mg/dL (7-17); Calcium 8.8 mg/dL (8.4-10.2); Hemolysis Index 4
[2021-04-05 06:43] LABS: Alanine Aminotransferase < 5 units/L (7-56)
[2021-04-05] MEDS: INSULIN LISPRO 100 UNIT/ML SUB-Q SCH ×4 (08:00→22:40)
--- NOTE | 2021-04-05 09:45 | Consultation ---
History of Present Illness Consult date: 04/05/21 Reason for Consult: Altered mentation since yesterday History of present illness: Altered sensorium since a.m. History of present illness: 65-year-old female with history of hypertension, insulin-dependent diabetes and psychiatric history on Depakote and Risperdal sent in from [facility] for increasing confusion and unsteady gait. No fever. Patient sent by EMS for confusion. Patient's last well-known time is not known. Normal Accu-Chek in the field. Vaccination status is not known. Exposure to coronavirus is not known. ER course patient was confused and altered during my examination. In ER CT brain and CTA brain and neck are unremarkable valproic acid level is #82.8 she is on [facility] not recall if she is seeing psychiatrist she is with bilateral action tremor and rigidity ,Exam is none focal - Past Medical History --Previous Medical History?: Yes --Hypertension: Yes --Diabetes: Yes --Psychiatric Treatment: Yes (bipolar, schizophrenia, depression) --Additional medical history: high cholesterol -Surgical history --patient unable to elaborate - Social History Smoking Status: Never Smoker -Family history --patient unable to elaborate - Medications Home Medications: Home Medications Medication Instructions Recorded Confirmed Last Taken Type metFORMIN [Glucophage] 500 mg PO QDAY 10/19/13 01/13/21 Unknown History Benztropine [Cogentin] 0.5 mg PO BID 12/13/20 01/13/21 Unknown History Divalproex ER [Depakote ER] 500 mg PO BID 12/13/20 01/13/21 Unknown History Simvastatin 40 mg PO QDAY 12/13/20 01/13/21 Unknown History amLODIPine 10 mg PO DAILY 12/13/20 01/13/21 Unknown History risperiDONE [RisperDAL] 3 mg PO QHS 12/13/20 01/13/21 Unknown History traZODone [Desyrel] 50 mg PO QHS 12/13/20 01/13/21 Unknown History Sertraline [Zoloft] 25 mg PO QDAY #30 tablet 01/17/21 Unknown Rx hydrOXYzine PAMOATE [Vistaril] 25 mg PO BID #60 capsule 01/17/21 Unknown Rx Review of Systems -ROS: Stated complaint: WEAKNESS Other details as noted in HPI Comment: Unobtainable due to pts medical conditions Constitutional: malaise, weakness. denies: fever Cardiovascular: denies: chest pain Gastrointestinal: denies: abdominal pain Neurological: weakness, confusion, abnormal gait Medications and Allergies Allergies Allergy/AdvReac Type Severity Reaction Status Date / Time No Known Allergies Allergy Verified 04/04/21 10:13 Home Medications Medication Instructions Recorded Confirmed Last Taken Type metFORMIN [Glucophage] 500 mg PO QDAY 10/19/13 01/13/21 Unknown History Benztropine [Cogentin] 0.5 mg PO BID 12/13/20 01/13/21 Unknown History Divalproex ER [Depakote ER] 500 mg PO BID 12/13/20 01/13/21 Unknown History Simvastatin 40 mg PO QDAY 12/13/20 01/13/21 Unknown History amLODIPine 10 mg PO DAILY 12/13/20 01/13/21 Unknown History risperiDONE [RisperDAL] 3 mg PO QHS 12/13/20 01/13/21 Unknown History traZODone [Desyrel] 50 mg PO QHS 12/13/20 01/13/21 Unknown History Sertraline [Zoloft] 25 mg PO QDAY #30 tablet 01/17/21 Unknown Rx hydrOXYzine PAMOATE [Vistaril] 25 mg PO BID #60 capsule 01/17/21 Unknown Rx Medications and Allergies Allergies Allergy/AdvReac Type Severity Reaction Status Date / Time No Known Allergies Allergy Verified 04/04/21 10:13 Home Medications Medication Instructions Recorded Confirmed Last Taken Type metFORMIN [Glucophage] 500 mg PO QDAY 10/19/13 01/13/21 Unknown History Benztropine [Cogentin] 0.5 mg PO BID 12/13/20 01/13/21 Unknown History Divalproex ER [Depakote ER] 500 mg PO BID 12/13/20 01/13/21 Unknown History Simvastatin 40 mg PO QDAY 12/13/20 01/13/21 Unknown History amLODIPine 10 mg PO DAILY 12/13/20 01/13/21 Unknown History risperiDONE [RisperDAL] 3 mg PO QHS 12/13/20 01/13/21 Unknown History traZODone [Desyrel] 50 mg PO QHS 12/13/20 01/13/21 Unknown History Sertraline [Zoloft] 25 mg PO QDAY #30 tablet 01/17/21 Unknown Rx hydrOXYzine PAMOATE [Vistaril] 25 mg PO BID #60 capsule 01/17/21 Unknown Rx Active Meds: Active Medications Acetaminophen (Acetaminophen 325 Mg Tab) 650 mg PO Q4H PRN PRN Reason: Pain MILD(1-3)/Fever >100.5/GRIMM Amlodipine Besylate (Amlodipine 10 Mg Tab) 10 mg PO DAILY [facility] Last Admin: 04/04/21 22:53 Dose: 10 mg Documented by: Benztropine Mesylate (Benztropine 0.5 Mg Tab) 0.5 mg PO BID [facility] Last Admin: 04/04/21 22:51 Dose: 0.5 mg Documented by: Divalproex Sodium (Divalproex Er 500 Mg Tab) 500 mg PO BID [facility] Last Admin: 04/04/21 22:52 Dose: 500 mg Documented by: Famotidine (Famotidine 20 Mg Tab) 20 mg PO BID [facility] Last Admin: 04/04/21 22:53 Dose: 20 mg Documented by: Heparin Sodium (Porcine) (Heparin 5,000 Unit/1 Ml Vial) 5,000 unit SUB-Q Q12HR [facility] Last Admin: 04/04/21 22:54 Dose: 5,000 unit Documented by: Hydromorphone HCl (Hydromorphone 1 Mg/1 Ml Inj) 0.5 mg IV Q3H PRN PRN Reason: Pain , Severe (7-10) Hydroxyzine Pamoate (Hydroxyzine Pamoate 25 Mg Cap) 25 mg PO BID [facility] Last Admin: 04/04/21 22:51 Dose: 25 mg Documented by: Sodium Chloride (Nacl 0.9% 1000 Ml) 1,000 mls @ 75 mls/hr IV DIRECT [facility] Last Admin: 04/04/21 22:51 Dose: 75 mls/hr Documented by: Insulin Human Lispro (Insulin Lispro 100 Unit/Ml) 0 unit SUB-Q ACHS [facility]; Protocol Ondansetron HCl (Ondansetron 4 Mg/2 Ml Inj) 4 mg IV Q8H PRN PRN Reason: Nausea And Vomiting Oxycodone/Acetaminophen (Oxycodone /Acetaminophen 5-325mg Tab) 1 tab PO Q6H PRN PRN Reason: Pain, Moderate (4-6) Pravastatin Sodium (Pravastatin 80 Mg Tab) 80 mg PO QHS [facility] Last Admin: 04/04/21 22:53 Dose: 80 mg Documented by: Risperidone (Risperidone 3 Mg Tab) 3 mg PO QHS [facility] Last Admin: 04/04/21 22:52 Dose: 3 mg Documented by: Sertraline HCl (Sertraline 25 Mg Tab) 25 mg PO QDAY [facility] Sodium Chloride (Sodium Chloride 0.9% 10 Ml Flush Syringe) 10 ml IV BID [facility] Last Admin: 04/04/21 22:54 Dose: 10 ml Documented by: Sodium Chloride (Sodium Chloride 0.9% 10 Ml Flush Syringe) 10 ml IV PRN PRN PRN Reason: LINE FLUSH Trazodone HCl (Trazodone 50 Mg Tab) 50 mg PO QHS [facility] Last Admin: 04/04/21 22:53 Dose: 50 mg Documented by: Physical Examination - Vital Signs Vital Signs: Vital Signs Pulse Resp BP Pulse Ox 49 L 16 133/77 99 04/04/21 10:00 04/04/21 10:00 04/04/21 10:00 04/04/21 10:00 - Constitutional General appearance: comfortable - EENT EENT: Present: PERRL, mucous membranes moist - Respiratory Respiratory: Present: lungs clear, rhonchi - Cardiovascular Cardiovascular: Present: regular rate, normal S1, normal S2 Extremities: Present: no peripheral edema bilatateraly, no clubbing, cyanosis - Gastrointestinal Gastrointestinal: Present: normoactive bowel sounds - Integumentary Integumentary: Present: normal - Neurologic Cranial nerve examination: PERRL, EOMI, intact Speech examination: intact Sensorimotor examination: intact, rigidity, other (and tremor with rigidity , mask face ) Detailed motor examination: grossly full strength in Results - Laboratory Findings CBC and BMP: 04/05/21 05:55 04/05/21 05:55 Abnormal Lab Findings: Abnormal Labs 04/04/21 04/04/21 04/04/21 09:28 09:28 09:28 RBC 5.56 H MCV 68 L MCH 22 L RDW 17.2 H [place] % (Auto) 10.9 H Glucose POC Glucose Hemoglobin A1c Magnesium 1.60 L ALT < 5 L Total Creatine Kinase 26 L 25 L Total Protein Albumin 3.2 L Salicylates Acetaminophen 04/04/21 04/04/21 04/05/21 09:28 09:28 05:55 RBC 5.35 H MCV 69 L MCH 22 L RDW 17.2 H [place] % (Auto) 11.6 H Glucose POC Glucose Hemoglobin A1c Magnesium ALT Total Creatine Kinase Total Protein Albumin Salicylates < 0.3 L Acetaminophen 5.0 L 04/05/21 04/05/21 04/05/21 05:55 05:55 07:40 RBC MCV MCH RDW [place] % (Auto) Glucose 108 H POC Glucose 132 H Hemoglobin A1c 7.0 H Magnesium ALT < 5 L Total Creatine Kinase Total Protein 6.0 L Albumin 3.0 L Salicylates Acetaminophen Assessment and Plan Assessment and Plan Advance Directives: Yes (Full code) VTE prophylaxis?: Chemical Plan of care discussed with patient/family: Yes - Patient Problems # Acute encephalopathy -possibly multifactorial she is on [facility] -underlying infection can not be excluded -MR brain requested on hold until find the family -Exam is none focal. -Brain CT and Brain and neck CTA are unremarkable -Pt. is discriping recurrent fall and she is out each time for >1 Hour ?? she is disoriented today ? 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 -valproic acid level is 82.8 # Hypomagnesemia -Supplemented # Hypertension -Continue antihypertensives and adjust medications # T2DM (type 2 diabetes mellitus) Continue home insulin and coverage Check hemoglobin A1c#7 # Hyperlipidemia -Continue statins -LDL is pending (6) Mood disorder -Mental health consult # DVT prophylaxis -On anticoagulation and GI prophylaxis PLAN 1- Psychiatry to see 2- R/O underlying infection 3- MRI brain 4- EEG 5- Check for orthostatic changes 6- Pt/St evaluate will follow
[2021-04-05] MEDS: amLODIPine 10 MG TAB PO SCH (13:42)
[2021-04-05] MEDS: SERTRALINE 25 MG TAB PO SCH (13:42)
[2021-04-05] MEDS: BENZTROPINE 0.5 MG TAB PO SCH ×2 (13:45→22:27)
[2021-04-05] MEDS: DIVALPROEX ER 500 MG TAB PO SCH ×2 (13:45→22:27)
[2021-04-05] MEDS: FAMOTIDINE 20 MG TAB PO SCH ×2 (13:45→22:27)
[2021-04-05] MEDS: HEPARIN 5,000 UNIT/1 ML VIAL SUB-Q SCH ×2 (13:46→22:27)
[2021-04-05] MEDS: hydrOXYzine PAMOATE 25 MG CAP PO SCH ×2 (13:46→22:27)
--- NOTE | 2021-04-05 13:51 | Consultation ---
History of Present Illness - Reason for Consult Consult date: 04/05/21 Reason for consult: AMS - Chief Complaint Chief complaint: Altered sensorium since a.m. - History of Present Psychiatric Illness Per Note: 65-year-old female with history of hypertension, insulin-dependent diabetes and psychiatric history on Depakote and Risperdal sent in from [facility] for increasing confusion and unsteady gait. No fever. Patient sent by EMS for confusion. Patient's last well-known time is not known. Normal Accu-Chek in the field. Vaccination status is not known. Exposure to coronavirus is not known. ER course patient was confused and altered during my examination. Ana Wilburn is a 65 year old female with unknown psychiatric history. The patient was seen resting in bed, she is confused, oriented to self. Unable to assess at this time. Psych History- Unable to assess PAST MEDICAL HISTORY: none reported Family Psychiatric History: None reported or documented SOCIAL HISTORY- Unable to assess REVIEW OF SYSTEMS Constitutional: Negative for weight loss ENT: Negative for stridor Respiratory: Negative for cough or hemoptysis All other systems reviewed and are negative MENTAL STATUS EXAMINATION- Unable to assess Assessment and Plan (1)Encounter for screening examination for mental health and behavioral disorders- Z13.30 Treatment plan Continue with home medications. Risks, benefits and alternatives of medications discussed with the patient, questions answered and consent obtained from patient. PSYCHOTHERAPY: Supportive psychotherapy provided MEDICAL: Per primary team DELIRIUM PRECAUTIONS: Please re-orient patient frequently, keep lights on during the day, and minimize benzodiazepines and opiates as these medications could worsen patient's confusion. 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 Will follow. Thank you for the consult. Please contact with any questions and/or concerns. Case staffed with Dr. Meyer Medications and Allergies Allergies Allergy/AdvReac Type Severity Reaction Status Date / Time No Known Allergies Allergy Verified 04/04/21 10:13 Home Medications Medication Instructions Recorded Confirmed Last Taken Type metFORMIN [Glucophage] 500 mg PO QDAY 10/19/13 01/13/21 Unknown History Benztropine [Cogentin] 0.5 mg PO BID 12/13/20 01/13/21 Unknown History Divalproex ER [Depakote ER] 500 mg PO BID 12/13/20 01/13/21 Unknown History Simvastatin 40 mg PO QDAY 12/13/20 01/13/21 Unknown History amLODIPine 10 mg PO DAILY 12/13/20 01/13/21 Unknown History risperiDONE [RisperDAL] 3 mg PO QHS 12/13/20 01/13/21 Unknown History traZODone [Desyrel] 50 mg PO QHS 12/13/20 01/13/21 Unknown History Sertraline [Zoloft] 25 mg PO QDAY #30 tablet 01/17/21 Unknown Rx hydrOXYzine PAMOATE [Vistaril] 25 mg PO BID #60 capsule 01/17/21 Unknown Rx Active Meds: Active Medications Acetaminophen (Acetaminophen 325 Mg Tab) 650 mg PO Q4H PRN PRN Reason: Pain MILD(1-3)/Fever >100.5/GRIMM Amlodipine Besylate (Amlodipine 10 Mg Tab) 10 mg PO DAILY [facility] Last Admin: 04/05/21 13:42 Dose: 10 mg Documented by: Benztropine Mesylate (Benztropine 0.5 Mg Tab) 0.5 mg PO BID [facility] Last Admin: 04/04/21 22:51 Dose: 0.5 mg Documented by: Divalproex Sodium (Divalproex Er 500 Mg Tab) 500 mg PO BID [facility] Last Admin: 04/04/21 22:52 Dose: 500 mg Documented by: Famotidine (Famotidine 20 Mg Tab) 20 mg PO BID [facility] Last Admin: 04/04/21 22:53 Dose: 20 mg Documented by: Heparin Sodium (Porcine) (Heparin 5,000 Unit/1 Ml Vial) 5,000 unit SUB-Q Q12HR [facility] Last Admin: 04/04/21 22:54 Dose: 5,000 unit Documented by: Hydromorphone HCl (Hydromorphone 1 Mg/1 Ml Inj) 0.5 mg IV Q3H PRN PRN Reason: Pain , Severe (7-10) Hydroxyzine Pamoate (Hydroxyzine Pamoate 25 Mg Cap) 25 mg PO BID [facility] Last Admin: 04/04/21 22:51 Dose: 25 mg Documented by: Sodium Chloride (Nacl 0.9% 1000 Ml) 1,000 mls @ 75 mls/hr IV DIRECT [facility] Last Admin: 04/04/21 22:51 Dose: 75 mls/hr Documented by: Insulin Human Lispro (Insulin Lispro 100 Unit/Ml) 0 unit SUB-Q ACHS [facility]; Protocol Last Admin: 04/05/21 13:00 Dose: Not Given Documented by: Ondansetron HCl (Ondansetron 4 Mg/2 Ml Inj) 4 mg IV Q8H PRN PRN Reason: Nausea And Vomiting Oxycodone/Acetaminophen (Oxycodone /Acetaminophen 5-325mg Tab) 1 tab PO Q6H PRN PRN Reason: Pain, Moderate (4-6) Pravastatin Sodium (Pravastatin 80 Mg Tab) 80 mg PO QHS [facility] Last Admin: 04/04/21 22:53 Dose: 80 mg Documented by: Risperidone (Risperidone 3 Mg Tab) 3 mg PO QHS [facility] Last Admin: 04/04/21 22:52 Dose: 3 mg Documented by: Sertraline HCl (Sertraline 25 Mg Tab) 25 mg PO QDAY [facility] Last Admin: 04/05/21 13:42 Dose: 25 mg Documented by: Sodium Chloride (Sodium Chloride 0.9% 10 Ml Flush Syringe) 10 ml IV BID [facility] Last Admin: 04/04/21 22:54 Dose: 10 ml Documented by: Sodium Chloride (Sodium Chloride 0.9% 10 Ml Flush Syringe) 10 ml IV PRN PRN PRN Reason: LINE FLUSH Trazodone HCl (Trazodone 50 Mg Tab) 50 mg PO QHS [facility] Last Admin: 04/04/21 22:53 Dose: 50 mg Documented by: Mental Status Exam - Vital signs Last Vital Signs Temp 97.5 F L 04/05/21 11:36 Pulse 67 04/05/21 13:42 Resp 18 04/05/21 11:36 BP 141/67 04/05/21 13:42 Pulse Ox 93 04/05/21 11:36 Results Result Diagrams: 04/05/21 05:55 04/05/21 05:55 Abnormal lab results 04/05/21 04/05/21 04/05/21 Range/Units 05:55 05:55 05:55 RBC 5.35 H (3.65-5.03) M/mm3 MCV 69 L (79-97) fl MCH 22 L (28-32) pg RDW 17.2 H (13.2-15.2) % [place] % (Auto) 11.6 H (0.0-7.3) % Glucose 108 H (65-100) mg/dL POC Glucose (70-105) mg/dL Hemoglobin A1c 7.0 H (4-6) % ALT < 5 L (7-56) units/L Total Protein 6.0 L (6.3-8.2) g/dL Albumin 3.0 L (3.9-5) g/dL 04/05/21 Range/Units 07:40 RBC (3.65-5.03) M/mm3 MCV (79-97) fl MCH (28-32) pg RDW (13.2-15.2) % [place] % (Auto) (0.0-7.3) % Glucose (65-100) mg/dL POC Glucose 132 H (70-105) mg/dL Hemoglobin A1c (4-6) % ALT (7-56) units/L Total Protein (6.3-8.2) g/dL Albumin (3.9-5) g/dL All other labs normal.
--- NOTE | 2021-04-05 15:02 | Progress Note ---
Assessment and Plan -- Acute encephalopathy Neuro consult requested MR brain requested Patient has underlying psychiatric problems Mental health consult requested -- Hypomagnesemia Supplemented -- Hypertension Continue antihypertensives and adjust medications -- T2DM (type 2 diabetes mellitus) Continue home insulin and coverage Check hemoglobin A1c -- Hyperlipidemia Continue statins -- Mood disorder Mental health consult requested -- DVT prophylaxis On anticoagulation and GI prophylaxis Daily clinical course: 04/05/21: Continue to follow clinically, psychiatry recommended inpatient psych treatment. Follow pending MRI. CT head CTA head neck showed no abnormality. Subjective Date of service: 04/05/21 Interval history: Patient seen and examined. Medical records and medication list reviewed. No acute event overnight noted by the RN. Patient denies any chest pain or difficulty breathing. Patient is tolerating diet. Patient appears to be very confused Discussed plan of care at bedside with patient. Objective - Exam Narrative Exam: GENERAL: well-developed and well-nourished elderly -[place] female lying on bed appeared to be in no discomfort. HEENT: Normocephalic. Atraumatic. No conjunctival congestion or icterus. Patient has moist mucous membranes. NECK: Supple. Trachea midline. CHEST/LUNGS: Clear to auscultated bilaterally, breathing nonlabored. No wheezes crackles or rhonchi. HEART/CARDIOVASCULAR: Regular in rate and rhythm. S1 and S2 positive. ABDOMEN: Abdomen is soft, nontender. Patient has normal bowel sounds. SKIN: There is no rash. Warm and dry. NEURO: No focal motor deficit. Follows command. MUSCULOSKELETAL: No joint effusion or tenderness. EXTRIMITY: No edema, no cyanosis or clubbing. PSYCH: Cooperative but confused - Constitutional Vitals: Vital Signs - 12hr 04/05/21 04/05/21 04/05/21 03:53 07:47 08:00 Temperature 97.5 F L 97.5 F L Pulse Rate 46 L 50 L 50 L Respiratory 16 14 18 Rate Blood Pressure 99/43 148/71 Blood Pressure 148/71 [Left] O2 Sat by Pulse 96 98 98 Oximetry 04/05/21 04/05/21 04/05/21 11:30 11:36 13:42 Temperature 97.5 F L Pulse Rate 43 L 67 67 Respiratory 18 18 Rate Blood Pressure 145/71 141/67 Blood Pressure 145/71 [Left] O2 Sat by Pulse 93 93 Oximetry - Labs CBC & Chem 7: 04/05/21 05:55 04/05/21 05:55 Labs: Abnormal lab results 04/05/21 04/05/21 04/05/21 Range/Units 05:55 05:55 05:55 RBC 5.35 H (3.65-5.03) M/mm3 MCV 69 L (79-97) fl MCH 22 L (28-32) pg RDW 17.2 H (13.2-15.2) % [place] % (Auto) 11.6 H (0.0-7.3) % Glucose 108 H (65-100) mg/dL POC Glucose (70-105) mg/dL Hemoglobin A1c 7.0 H (4-6) % ALT < 5 L (7-56) units/L Total Protein 6.0 L (6.3-8.2) g/dL Albumin 3.0 L (3.9-5) g/dL 04/05/21 Range/Units 07:40 RBC (3.65-5.03) M/mm3 MCV (79-97) fl MCH (28-32) pg RDW (13.2-15.2) % [place] % (Auto) (0.0-7.3) % Glucose (65-100) mg/dL POC Glucose 132 H (70-105) mg/dL Hemoglobin A1c (4-6) % ALT (7-56) units/L Total Protein (6.3-8.2) g/dL Albumin (3.9-5) g/dL HEART Score - HEART Score Troponin: Troponin T < 0.010 ng/mL (0.00-0.029) 04/04/21 09:28
[2021-04-05] MEDS: risperiDONE 3 MG TAB PO SCH (22:27)
[2021-04-05] MEDS: traZODone 50 MG TAB PO SCH (22:27)
[2021-04-05] MEDS: PRAVASTATIN 80 MG TAB PO SCH (22:27)
[2021-04-06] MEDS: SODIUM CHLORIDE 0.9% 1000 ML 1,000 ML IV SCH ×2 (03:35→23:58)
[2021-04-06] MEDS: INSULIN LISPRO 100 UNIT/ML SUB-Q SCH ×4 (09:47→21:39)
[2021-04-06] MEDS: DIVALPROEX ER 500 MG TAB PO SCH ×2 (09:53→21:27)
[2021-04-06] MEDS: hydrOXYzine PAMOATE 25 MG CAP PO SCH ×2 (09:53→21:27)
[2021-04-06] MEDS: BENZTROPINE 0.5 MG TAB PO SCH ×2 (09:53→21:28)
[2021-04-06] MEDS: SERTRALINE 25 MG TAB PO SCH (09:54)
[2021-04-06] MEDS: FAMOTIDINE 20 MG TAB PO SCH ×2 (09:54→21:27)
[2021-04-06] MEDS: HEPARIN 5,000 UNIT/1 ML VIAL SUB-Q SCH ×2 (09:54→21:26)
[2021-04-06] MEDS: amLODIPine 10 MG TAB PO SCH (09:54)
--- NOTE | 2021-04-06 11:42 | Electrocardiograph Report ---
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 : [id number] Requested By: ALLIE KOHLI Order Number: [id number] Reading MD: Tyree Bob Measurements Intervals [place] Rate: 52 P: [place]: QRS: 33 QRSD: 86 T: 97 QT: 531 QTc: 496 Interpretive Statements Atrial fibrillation Ventricular premature complex Abnormal T, consider ischemia, diffuse leads Compared to ECG 01/11/2021 20:39:27 Ventricular premature complex(es) now present T-wave abnormality now present Possible ischemia now present Sinus bradycardia no longer present Atrial premature complex(es) no longer present ST (T wave) deviation no longer present Myocardial infarct finding no longer present Electronically Signed On 04-06-2021 11:42:38 EDT by Tyree Bbo
--- NOTE | 2021-04-06 14:47 | Magnetic Resonance Report ---
MR brain wo con INDICATION / CLINICAL INFORMATION: 65 years Female; Acute encephalopathy. TECHNIQUE: Multiplanar, multisequence MR images of the brain were obtained. COMPARISON: None available. FINDINGS: BRAIN / INTRACRANIAL CONTENTS: There is moderate to cerebral and cerebellar atrophy for age with asso ciated prominence of the ventricular system. There appear to be mild paravertebral white matter valle es most consistent with microvascular angiopathy. The diffusion imaging reveals no clear evidence of acute infarction. No extra-axial fluid collections or significant mass effect is identified. CRANIOCERVICAL JUNCTION: No significant abnormality. VASCULAR FLOW-VOIDS: No significant abnormality. ORBITS: No significant abnormality of visualized orbits. SINUSES / MASTOIDS: No significant abnormality in the visualized paranasal sinuses or mastoid air fang ls. ADDITIONAL FINDINGS: None. IMPRESSION: 1. There is moderate to cerebral atrophy and mild microvascular angiopathy as described without evide nce of recent infarction. Signer Name: Jv Cordova MD Signed: 04/06/2021 2:42 PM Workstation Name: [id number]
--- NOTE | 2021-04-06 20:19 | Progress Note ---
Assessment and Plan -- Acute encephalopathy Neuro consult requested MR brain requested Patient has underlying psychiatric problems Mental health consult requested -- Hypomagnesemia Supplemented -- Hypertension Continue antihypertensives and adjust medications -- T2DM (type 2 diabetes mellitus) Continue home insulin and coverage Check hemoglobin A1c -- Hyperlipidemia Continue statins -- Mood disorder Mental health consult requested -- DVT prophylaxis On anticoagulation and GI prophylaxis Daily clinical course: 04/05/21: Continue to follow clinically, psychiatry recommended inpatient psych treatment. Follow pending MRI. CT head CTA head neck showed no abnormality. 04/06/21: MRI brain showed no acute abnormality. Continue to monitor the patient clinically for inpatient psych treatment. Subjective Date of service: 04/06/21 Interval history: Patient seen and examined. Medical records and medication list reviewed. No acute event overnight noted by the RN. Patient denies any chest pain or difficulty breathing. Patient is tolerating diet. Patient appears to be very confused Discussed plan of care at bedside with patient. Objective - Exam Narrative Exam: GENERAL: well-developed and well-nourished elderly -[place] female lying on bed appeared to be in no discomfort. HEENT: Normocephalic. Atraumatic. No conjunctival congestion or icterus. Patient has moist mucous membranes. NECK: Supple. Trachea midline. CHEST/LUNGS: Clear to auscultated bilaterally, breathing nonlabored. No wheezes crackles or rhonchi. HEART/CARDIOVASCULAR: Regular in rate and rhythm. S1 and S2 positive. ABDOMEN: Abdomen is soft, nontender. Patient has normal bowel sounds. SKIN: There is no rash. Warm and dry. NEURO: No focal motor deficit. Follows command. MUSCULOSKELETAL: No joint effusion or tenderness. EXTRIMITY: No edema, no cyanosis or clubbing. PSYCH: Cooperative but confused - Constitutional Vitals: Vital Signs - 12hr 04/06/21 04/06/21 04/06/21 08:49 11:00 11:38 Temperature 97.3 F L 97.9 F Pulse Rate Respiratory 20 18 18 Rate Blood Pressure 121/69 123/66 O2 Sat by Pulse 97 Oximetry 04/06/21 04/06/21 04/06/21 15:17 16:00 19:27 Temperature 97.9 F 98.3 F Pulse Rate 62 61 Respiratory 18 16 Rate Blood Pressure 124/68 133/68 O2 Sat by Pulse 93 Oximetry - Labs CBC & Chem 7: 04/05/21 05:55 04/05/21 05:55 Labs: Abnormal lab results 04/06/21 04/06/21 Range/Units 12:33 17:19 POC Glucose 153 H 141 H (70-105) mg/dL HEART Score - HEART Score Troponin: Troponin T < 0.010 ng/mL (0.00-0.029) 04/04/21 09:28
[2021-04-06] MEDS: risperiDONE 3 MG TAB PO SCH (21:26)
[2021-04-06] MEDS: traZODone 50 MG TAB PO SCH (21:27)
[2021-04-06] MEDS: PRAVASTATIN 80 MG TAB PO SCH (21:28)
[2021-04-07] MEDS: INSULIN LISPRO 100 UNIT/ML SUB-Q SCH ×4 (07:30→21:51)
[2021-04-07] MEDS: BENZTROPINE 0.5 MG TAB PO SCH ×2 (11:35→21:47)
[2021-04-07] MEDS: SERTRALINE 25 MG TAB PO SCH (11:36)
[2021-04-07] MEDS: HEPARIN 5,000 UNIT/1 ML VIAL SUB-Q SCH ×2 (11:36→21:48)
[2021-04-07] MEDS: hydrOXYzine PAMOATE 25 MG CAP PO SCH ×2 (11:36→21:47)
[2021-04-07] MEDS: DIVALPROEX ER 500 MG TAB PO SCH ×2 (11:36→21:47)
[2021-04-07] MEDS: FAMOTIDINE 20 MG TAB PO SCH ×2 (11:36→21:47)
[2021-04-07] MEDS: amLODIPine 10 MG TAB PO SCH (11:36)
--- NOTE | 2021-04-07 12:43 | Progress Note ---
Assessment and Plan Assessment and Plan Advance Directives: Yes (Full code) VTE prophylaxis?: Chemical Plan of care discussed with patient/family: Yes - Patient Problems # Acute encephalopathy -possibly multifactorial she is on [facility] -underlying infection can not be excluded -MR brain is unremarkable -Exam is none focal. -Brain CT and Brain and neck CTA are unremarkable -EEG is remarkable for difffuse slowing no epileptiform discharges is noted -EKG ? 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 -valproic acid level is 82.8 # Hypomagnesemia -Supplemented # Hypertension -Continue antihypertensives and adjust medications # T2DM (type 2 diabetes mellitus) Continue home insulin and coverage Check hemoglobin A1c#7 # Hyperlipidemia -Continue statins -LDL is pending (6) Mood disorder -Mental health consult # DVT prophylaxis -On anticoagulation and GI prophylaxis PLAN 1- Psychiatry to see 2- Cardiology to see 3- MRI brain is unremarkable 4- EEG diffuse slowing 5- Check for orthostatic changes NOT done 6- Pt/St evaluate 7- Decrease Trazdon dose,Avoid pain medication and Vistaril, decrease Respidol to 2 mg qhs will follow as needed Subjective Date of service: 04/07/21 Principal diagnosis: confusion Interval history: she is still disoriented to place and date follow simple command MRI brain is unremarkable EKG is suggestive of AF Vs Af EEG showed diffuse slowing study done after MRI and she was sedated Objective - Vital Sign Vital Signs - 12hr 04/07/21 04/07/21 03:50 07:56 Temperature 98.8 F 98.5 F Pulse Rate 59 L 56 L Respiratory 16 20 Rate Blood Pressure 120/64 122/68 O2 Sat by Pulse 91 92 Oximetry - General Apperance Constitutional: comfortable - EENT EENT: PERRL - Respiratory Respiratory: lungs clear, rhonchi - Cardiovascular Cardiovascular: other (irregular ? AF on rhythm strip) Extremities: no peripheral edema bilat, no clubbing, cyanosis - Gastrointestinal Gastrointestinal: normoactive bowel sounds - Integumentary Integumentary: normal - Neurologic Cranial nerve examination: PERRL, EOMI, intact Speech examination: intact Detailed motor examination: grossly full strength in, other (with associted r igidity and mild tremor,gait not done) - Laboratory Findings CBC and BMP: 04/05/21 05:55 04/05/21 05:55 Abnormal Lab Findings: Abnormal Labs 04/04/21 04/04/21 04/04/21 09:28 09:28 09:28 RBC 5.56 H MCV 68 L MCH 22 L RDW 17.2 H [place] % (Auto) 10.9 H Glucose POC Glucose Hemoglobin A1c Magnesium 1.60 L ALT < 5 L Total Creatine Kinase 26 L 25 L Total Protein Albumin 3.2 L Salicylates Acetaminophen 04/04/21 04/04/21 04/05/21 09:28 09:28 05:55 RBC 5.35 H MCV 69 L MCH 22 L RDW 17.2 H [place] % (Auto) 11.6 H Glucose POC Glucose Hemoglobin A1c Magnesium ALT Total Creatine Kinase Total Protein Albumin Salicylates < 0.3 L Acetaminophen 5.0 L 04/05/21 04/05/21 04/05/21 05:55 05:55 07:40 RBC MCV MCH RDW [place] % (Auto) Glucose 108 H POC Glucose 132 H Hemoglobin A1c 7.0 H Magnesium ALT < 5 L Total Creatine Kinase Total Protein 6.0 L Albumin 3.0 L Salicylates Acetaminophen 04/05/21 04/06/21 04/06/21 15:57 12:33 17:19 RBC MCV MCH RDW [place] % (Auto) Glucose POC Glucose 175 H 153 H 141 H Hemoglobin A1c Magnesium ALT Total Creatine Kinase Total Protein Albumin Salicylates Acetaminophen 04/06/21 04/07/21 21:01 11:23 RBC MCV MCH RDW [place] % (Auto) Glucose POC Glucose 109 H 111 H Hemoglobin A1c Magnesium ALT Total Creatine Kinase Total Protein Albumin Salicylates Acetaminophen
[2021-04-07] MEDS: SODIUM CHLORIDE 0.9% 1000 ML 1,000 ML IV SCH (21:46)
[2021-04-07] MEDS: traZODone 50 MG TAB PO SCH (21:47)
[2021-04-07] MEDS: risperiDONE 3 MG TAB PO SCH (21:47)
[2021-04-07] MEDS: PRAVASTATIN 80 MG TAB PO SCH (21:47)
--- NOTE | 2021-04-08 00:01 | Progress Note ---
Assessment and Plan -- Acute encephalopathy Likely due to underlying psychiatric problems Neuro consult requested MR brain normal Mental health consult requested -- Hypomagnesemia Supplemented -- Hypertension Continue antihypertensives and adjust medications -- T2DM (type 2 diabetes mellitus) Continue home insulin and coverage Check hemoglobin A1c -- Hyperlipidemia Continue statins -- Mood disorder Mental health consult requested -- DVT prophylaxis On anticoagulation and GI prophylaxis Daily clinical course: 04/05/21: Continue to follow clinically, psychiatry recommended inpatient psych treatment. Follow pending MRI. CT head CTA head neck showed no abnormality. 04/06/21: MRI brain showed no acute abnormality. Continue to monitor the patient clinically for inpatient psych treatment. 04/07/21: Waiting for inpatient psych placement, follow clinically Subjective Date of service: 04/07/21 Principal diagnosis: confusion Interval history: Patient seen and examined. Medical records and medication list reviewed. No acute event overnight noted by the RN. Patient denies any chest pain or difficulty breathing. Patient is tolerating diet. Patient appears to be very confused Discussed plan of care at bedside with patient. Objective - Exam Narrative Exam: GENERAL: well-developed and well-nourished elderly -Maldivian female lying on bed appeared to be in no discomfort. HEENT: Normocephalic. Atraumatic. No conjunctival congestion or icterus. Patient has moist mucous membranes. NECK: Supple. Trachea midline. CHEST/LUNGS: Clear to auscultated bilaterally, breathing nonlabored. No wheezes crackles or rhonchi. HEART/CARDIOVASCULAR: Regular in rate and rhythm. S1 and S2 positive. ABDOMEN: Abdomen is soft, nontender. Patient has normal bowel sounds. SKIN: There is no rash. Warm and dry. NEURO: No focal motor deficit. Follows command. MUSCULOSKELETAL: No joint effusion or tenderness. EXTRIMITY: No edema, no cyanosis or clubbing. PSYCH: Cooperative but confused - Constitutional Vitals: Vital Signs - 12hr 04/07/21 04/07/21 04/07/21 16:00 17:39 20:06 Temperature 98.7 F 98.6 F Pulse Rate 58 L 57 L Respiratory 18 18 Rate Blood Pressure 131/78 130/71 O2 Sat by Pulse 94 Oximetry - Labs CBC & Chem 7: 04/05/21 05:55 04/05/21 05:55 Labs: Abnormal lab results 04/07/21 04/07/21 04/07/21 Range/Units 11:23 16:16 21:17 POC Glucose 111 H 113 H 131 H (70-105) mg/dL HEART Score - HEART Score Troponin: Troponin T < 0.010 ng/mL (0.00-0.029) 04/04/21 09:28
[2021-04-08] MEDS: INSULIN LISPRO 100 UNIT/ML SUB-Q SCH ×2 (07:41→22:53)
[2021-04-08] MEDS: DIVALPROEX ER 500 MG TAB PO SCH ×2 (11:32→22:39)
[2021-04-08] MEDS: FAMOTIDINE 20 MG TAB PO SCH ×2 (11:32→22:38)
[2021-04-08] MEDS: BENZTROPINE 0.5 MG TAB PO SCH ×2 (11:32→22:39)
[2021-04-08] MEDS: SERTRALINE 25 MG TAB PO SCH (11:32)
[2021-04-08] MEDS: hydrOXYzine PAMOATE 25 MG CAP PO SCH ×2 (11:32→22:38)
[2021-04-08] MEDS: amLODIPine 10 MG TAB PO SCH (11:32)
[2021-04-08] MEDS: HEPARIN 5,000 UNIT/1 ML VIAL SUB-Q SCH ×2 (11:33→22:38)
--- NOTE | 2021-04-08 12:13 | Progress Note ---
Subjective - Reason for Consult Consult date: 04/08/21 Reason for consult: MHE - Chief Complaint Chief complaint: The patient was seen today. She is sitting in a chair in her room by the window. She is calm, cooperative and pleasant. She greets me with a smile. The patient says she was admitted into the hospital because she says "I think I passed out and was having problems with her blood sugar." She says "I feel much better now and ready to go home." She says she lives at a personal [place] [facility]. The patient says she sees therapist and psychiatrists there. She says she has a history of bipolar and schizophrenia. She could not remember what medications she was on. She says "but I take all of them." The patient denies SI/HI or hallucinations of any kind. REVIEW OF SYSTEMS Constitutional: Negative for weight loss ENT: Negative for stridor Respiratory: Negative for cough or hemoptysis All other systems reviewed and are negative MENTAL STATUS EXAMINATION General Appearance and Behavior: Age appropriate, good hygiene, wearing appropriate clothes, calm, cooperative and pleasant Cooperation: Participating Psychomotor Behavior: unremarkable and within normal limits Mood: much better Affect and affective range: congruent with mood, smiling Thought Process: goal directed Thought Content: None Speech: garbled Suicidal Ideation: denies Homicidal Ideation: Denies Hallucinations: Denies Delusions: None elicited Impulse Control: Limited Insight and Judgment: Limited insight and poor judgment, Memory: Limited Attention: Normal Orientation: Alert, oriented Assessment and Plan (1)Encounter for screening examination for mental health and behavioral disorders- Z13.30 Treatment plan Continue with home medications. Risks, benefits and alternatives of medications discussed with the patient, questions answered and consent obtained from patient. PSYCHOTHERAPY: Supportive psychotherapy provided MEDICAL: Per primary team DELIRIUM PRECAUTIONS: Please re-orient patient frequently, keep lights on during the day, and minimize benzodiazepines and opiates as these medications could worsen patient's confusion. 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 Will sign off. Thank you for the consult. Please contact with any questions and/or concerns. Case staffed with Dr. Meyer Mental Status Exam - Vital signs Last Vital Signs Temp 98.6 F 04/08/21 04:55 Pulse 46 L 04/08/21 04:55 Resp 18 04/08/21 04:55 BP 122/49 04/08/21 04:55 Pulse Ox 98 04/08/21 04:55
--- NOTE | 2021-04-08 17:35 | Discharge Summary ---
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 In ER CT brain and CTA brain and neck are unremarkable -MR brain is unremarkable -Exam is none focal. -EEG is remarkable for difffuse slowing no epileptiform discharges is noted -valproic acid level is #82.8 Daily clinical course: 04/05/21: Continue to follow clinically, psychiatry recommended inpatient psych treatment. Follow pending MRI. CT head CTA head neck showed no abnormality. 04/06/21: MRI brain showed no acute abnormality. Continue to monitor the patient clinically for inpatient psych treatment. 04/07/21: Waiting for inpatient psych placement, follow clinically 04/08/21: Psych cleared for discharge. Per neurology pt might be having polypharmacy and secondary parkinsonism. Today she is doing much better, clinically improved. Evaluated by PT. repleted electrolytes, cont metformin for DM. Will be discharged to personal custodial with outpt followup with psychiatry in one week. Disposition: HOME / SELF CARE / HOMELESS Final Discharge Diagnosis (Prints w/discharge instructions): -- Acute encephalopathy. -- Hypomagnesemia. -- Hypertension. -- T2DM (type 2 diabetes mellitus). -- Hyperlipidemia. -- Mood disorder Time spent for discharge: 34 minutes Core Measure Documentation - Palliative Care Palliative Care/ Comfort Measures: Not Applicable - Core Measures Any of the following diagnoses?: none Exam - Physical Exam Narrative exam: GENERAL: well-developed and well-nourished elderly -[place]ammarinese female sitting in a chair appeared to be in no discomfort. HEENT: Normocephalic. Atraumatic. No conjunctival congestion or icterus. Delaney ent has moist mucous membranes. NECK: Supple. Trachea midline. CHEST/LUNGS: Clear to auscultated bilaterally, breathing nonlabored. No wheezes crackles or rhonchi. HEART/CARDIOVASCULAR: Regular in rate and rhythm. S1 and S2 positive. ABDOMEN: Abdomen is soft, nontender. Patient has normal bowel sounds. SKIN: There is no rash. Warm and dry. NEURO: No focal motor deficit. Follows command. MUSCULOSKELETAL: No joint effusion or tenderness. EXTRIMITY: No edema, no cyanosis or clubbing. PSYCH: Cooperative - Constitutional Vitals: Temp Pulse Resp BP Pulse Ox 98.6 F 46 L 18 122/49 98 04/08/21 04:55 04/08/21 04:55 04/08/21 04:55 04/08/21 04:55 04/08/21 04:55 Plan Activity: advance as tolerated Weight Bearing Status: Weight Bear as Tolerated Diet: low fat, low salt Follow up with: PRIMARY CAREMD [Primary Care Provider] - 3-5 Days AMPARO LOVE MD [Staff Physician] - 7 Days
[2021-04-08] MEDS: risperiDONE 3 MG TAB PO SCH (22:39)
[2021-04-08] MEDS: traZODone 50 MG TAB PO SCH (22:42)
[2021-04-08] MEDS: PRAVASTATIN 80 MG TAB PO SCH (22:42)
[2021-04-09 05:45] LABS: Basophils % (Auto) 0.5 % (0.0-1.8); Eosinophils # (Auto) 0.2 K/mm3 (0.0-0.4); Eosinophils % (Auto) 2.5 % (0.0-4.3); Hematocrit 35.1 % (30.3-42.9); Hemoglobin 11.5 gm/dl (10.1-14.3); Lymphocytes % (Auto) 30.5 % (13.4-35.0); Mean Corpuscular HGB Conc 33 % (30-34); Monocytes # (Auto) 0.8 K/mm3 (0.0-0.8); Platelet Count 119 K/mm3 (140-440); Red Blood Count 5.08 M/mm3 (3.65-5.03); Red Cell Distribution Width 17.4 % (13.2-15.2)
[2021-04-09 05:48] LABS: Mean Corpuscular Volume 69 fl (79-97)
[2021-04-09 06:16] LABS: BUN/Creatinine Ratio 17; Blood Urea Nitrogen 12 mg/dL (7-17); Calcium 8.6 mg/dL (8.4-10.2); Hemolysis Index 2
[2021-04-09] MEDS: INSULIN LISPRO 100 UNIT/ML SUB-Q SCH (08:10)
[2021-04-09] MEDS: hydrOXYzine PAMOATE 25 MG CAP PO SCH (10:44)
[2021-04-09] MEDS: HEPARIN 5,000 UNIT/1 ML VIAL SUB-Q SCH (10:44)
[2021-04-09] MEDS: FAMOTIDINE 20 MG TAB PO SCH (10:44)
[2021-04-09] MEDS: amLODIPine 10 MG TAB PO SCH (10:44)
[2021-04-09] MEDS: SERTRALINE 25 MG TAB PO SCH (10:44)
[2021-04-09] MEDS: BENZTROPINE 0.5 MG TAB PO SCH (10:45)
[2021-04-09] MEDS: DIVALPROEX ER 500 MG TAB PO SCH (10:45)
[2021-04-09 15:45] VITALS: BP 142/74
== END 2021-04-09 13:30 | disposition home or self-care (01) | DRG 72 ==
LOC: ED 08:37 → 4A 11:26
PROVIDERS: ADMIT Internal Medicine; ATTEND Internal Medicine
DX: G93.40 Encephalopathy, unspecified (principal); F39 Unspecified mood [affective] disorder; E78.5 Hyperlipidemia, unspecified; I10 Essential (primary) hypertension; E83.42 Hypomagnesemia; E11.9 Type 2 diabetes mellitus without complications; F32.A Depression, unspecified; E78.00 Pure hypercholesterolemia, unspecified; G20 Parkinson's disease; G31.9 Degenerative disease of nervous system, unspecified; Z20.822 Contact with and (suspected) exposure to COVID-19
CPT/HCPCS: 36415; 70450; 70496; 70498; 70551; 71045; 80048; 80053; 80164; 80307; 80320; 81001; 82140; 82550; 82553; 82962; 83036; 83735; 84443; 84484; 85025; 85610; 85670; 85730; 87040; 87116; 93005; 95819; G0378; G0480; J0610; J1644; J1815; J7030; J7040; J7120; Q0177; Q9967

== ENCOUNTER 2021-06-22 10:56 | Emergency (ER) | payer MEDICAID ==
--- NOTE | 2021-06-22 13:17 | Emergency Department Report ---
ED General Adult HPI - General Chief complaint: Dizziness Stated complaint: DIZZY Time Seen by Provider: 06/22/21 13:16 Source: EMS Mode of arrival: Wheelchair Limitations: No Limitations - History of Present Illness Initial comments: Patient presents because she was in essence kicked out of her skilled nursing. Patient states that she was walking across the street. The person that she stays with told her that she was not allowed to come back. The person told her that she would call the police if she came back. The daughter called and stated the patient needed to be placed. We according to the daughter need to find another fci for the patient as she cannot go back to the when she was living in. Patient states that she really does not know why she is here. She states that she has been having episodes of dizziness for years. She has no new symptoms. The family reported that there may be some history of dementia. - Related Data Home Medications Medication Instructions Recorded Confirmed Last Taken metFORMIN [Glucophage] 500 mg PO BID 10/19/13 06/22/21 Unknown Benztropine [Cogentin] 0.5 mg PO BID 12/13/20 06/22/21 Unknown Divalproex ER [Depakote ER] 500 mg PO BID 12/13/20 06/22/21 03/25/21 risperiDONE [RisperDAL] 3 mg PO QHS 12/13/20 06/22/21 Unknown Aspirin EC [Halfprin EC] 81 mg PO QDAY 04/07/21 06/22/21 Unknown AtorvaSTATin [Lipitor] 40 mg PO QHS 04/07/21 06/22/21 Unknown Paliperidone Palmitate [Invega 234 mg IM QMONTH 04/07/21 06/22/21 03/25/21 Sustenna] amLODIPine 5 mg PO QDAY 04/07/21 06/22/21 Unknown traZODone [Desyrel] 50 mg PO QHS 04/08/21 06/22/21 Unknown Allergies Allergy/AdvReac Type Severity Reaction Status Date / Time No Known Allergies Allergy Verified 06/22/21 11:00 ED Review of Systems ROS: Stated complaint: DIZZY Other details as noted in HPI Comment: All other systems reviewed and negative Constitutional: denies: fever Eyes: denies: vision change ENT: denies: throat pain Respiratory: denies: cough Cardiovascular: denies: chest pain Endocrine: denies: unexplained weight loss Gastrointestinal: denies: abdominal pain Genitourinary: denies: dysuria Musculoskeletal: denies: back pain Skin: denies: rash Neurological: denies: headache Hematological/Lymphatic: denies: easy bruising ED Past Medical Hx - Past Medical History Hx Hypertension: Yes Hx Congestive Heart Failure: No Hx Diabetes: Yes Hx Renal Disease: No Hx Arthritis: No Hx Seizures: No Hx Psychiatric Treatment: Yes (bipolar, schizophrenia, depression) Hx Asthma: No Hx COPD: No Hx Dementia: No Additional medical history: high cholesterol - Surgical History Hx Cholecystectomy: No Hx Appendectomy: No - Family History Family history: hypertension - Social History Smoking Status: Unknown if ever smoked - Medications Home Medications: Home Medications Medication Instructions Recorded Confirmed Last Taken Type metFORMIN [Glucophage] 500 mg PO BID 10/19/13 06/22/21 Unknown History Benztropine [Cogentin] 0.5 mg PO BID 12/13/20 06/22/21 Unknown History Divalproex ER [Depakote ER] 500 mg PO BID 12/13/20 06/22/21 03/25/21 History risperiDONE [RisperDAL] 3 mg PO QHS 12/13/20 06/22/21 Unknown History Aspirin EC [Halfprin EC] 81 mg PO QDAY 04/07/21 06/22/21 Unknown History AtorvaSTATin [Lipitor] 40 mg PO QHS 04/07/21 06/22/21 Unknown History Paliperidone Palmitate [Invega 234 mg IM QMONTH 04/07/21 06/22/21 03/25/21 History Sustenna] amLODIPine 5 mg PO QDAY 04/07/21 06/22/21 Unknown History traZODone [Desyrel] 50 mg PO QHS 04/08/21 06/22/21 Unknown History ED Physical Exam - General Limitations: Altered Mental Status (Questionable dementia), Other (Pulse ox noted and normal) General appearance: alert, in no apparent distress - Head Head exam: Present: atraumatic, normocephalic - Eye Eye exam: Present: normal appearance, EOMI - ENT ENT exam: Present: normal orophraynx, normal external ear exam - Neck Neck exam: Present: normal inspection. Absent: meningismus - Respiratory Respiratory exam: Present: normal lung sounds bilaterally. Absent: respiratory distress - Cardiovascular Cardiovascular Exam: Present: regular rate, normal rhythm - GI/Abdominal GI/Abdominal exam: Present: soft. Absent: tenderness - Extremities Exam Extremities exam: Present: normal capillary refill - Back Exam Back exam: Absent: CVA tenderness (R), CVA tenderness (L) - Neurological Exam Neurological exam: Present: alert, altered (Confused but pleasant), CN II-XII in tact, normal gait. Absent: motor sensory deficit - Psychiatric Psychiatric exam: Present: normal affect, normal mood, other (Patient does become tearful when talking about getting kicked out of her home.) - Skin Skin exam: Present: warm, dry ED Course Vital Signs 06/22/21 06/22/21 06/22/21 10:57 14:33 20:00 Temperature 97.7 F 97.5 F L Pulse Rate 95 H 54 L Respiratory 19 16 Rate Blood Pressure 140/80 112/60 [Left] O2 Sat by Pulse 95 95 97 Oximetry - Reevaluation(s) Reevaluation #1: 06/22/21 14:00 Case management consult has been requested Reevaluation #2: 06/22/21 20:27 Labs have been reviewed. Patient is medically cleared. We are awaiting case management disposition. Care was signed out pending case management disposition. ED Medical Decision Making - Lab Data Result diagrams: 06/22/21 14:55 06/22/21 14:55 - Medical Decision Making Patient was abandoned by her personal fci and told that she was not allowed to come back. Nursing staff will report this to the state for patient abandonment. Case management has been involved and they can follow-up on the report for abandonment. Regardless, we do not have a safe disposition for this patient. She is demented and certainly could not be discharged to the street. She will be kept safe and from harm until case management can find a safe place for dispo. Critical Care Time: No Critical care attestation.: If time is entered above; I have spent that time in minutes in the direct care of this critically ill patient, excluding procedure time. ED Disposition Clinical Impression: Chronic confusion Disposition: 30 STILL A PATIENT Is pt being admited?: No Condition: Stable Referrals: PRIMARY CARE, [Primary Care Provider] - 3-5 Days
[2021-06-22 15:28] LABS: Hematocrit 42.7 % (30.3-42.9); Hemoglobin 13.2 gm/dl (10.1-14.3); Mean Corpuscular HGB Conc 31 % (30-34); Mean Corpuscular Volume 72 fl (79-97); Platelet Count 130 K/mm3 (140-440); Red Blood Count 5.94 M/mm3 (3.65-5.03); Red Cell Distribution Width 17.4 % (13.2-15.2)
[2021-06-22 15:31] LABS: Albumin 3.9 g/dL (3.9-5); BUN/Creatinine Ratio 19; Blood Urea Nitrogen 17 mg/dL (7-17); Calcium 9.6 mg/dL (8.4-10.2); Hemolysis Index 11
[2021-06-22 15:32] LABS: Alanine Aminotransferase < 5 units/L (7-56)
[2021-06-22 18:44] LABS: Bacteria,Urine 1+ /HPF (Negative); Bilirubin,Urine NEG (Negative); Blood,Urine SM (Negative); Color,Urine Yellow (Yellow); Mucus,Urine FEW /HPF; Protein,Urine <15 mg/dL mg/dL (Negative)
[2021-06-22 18:47] LABS: Amphetamine Screen,Urine Negative; Benzodiazepines Screen,Urine Negative; Cannabinoid Screen,Urine Negative; Cocaine Screen,Urine Negative; Methadone Screen,Urine Negative; Opiate Screen,Urine Negative
--- NOTE | 2021-06-23 11:22 | Event Note ---
Date: 06/23/21 S: No events reported overnight O: Vital Signs - 8 hr 06/23/21 06:25 Blood Pressure 120/90 [Left] A: Homelessness PE: Awaiting case management placement
[2021-06-24] MEDS ORDERED: ALPRAZolam 0.5 MG TAB PO ONE (00:37)
[2021-06-24] MEDS ORDERED: LORazepam 2 MG/ML VIAL IM PRN (11:45)
--- NOTE | 2021-06-24 11:49 | Event Note ---
Date: 06/24/21 The patient was evaluated in the emergency department for symptoms described in the history of present illness. He/she was evaluated in the context of the global COVID-19 pandemic, which necessitated consideration that the patient might be at risk for infection with the virus that causes COVID-19. Institutional protocols and algorithms that pertain to the evaluation of patients at risk for COVID-19 are in a state of rapid change based on information released by regulatory bodies including the CDC and federal and state organizations. These policies and algorithms were followed during the patient's care in the emergency department. Please note that these policies, procedures and recommendations changed on a rapid basis. Laboratory studies, vital signs, nursing documentation, ER documentation, and psychiatric documentation are reviewed and appreciated. Nursing team reports no acute events this morning or concerns. Patient is awake, ambulating with a steady gait, but is very disorganized The patient was deemed medically suitable for psychiatric disposition and placement during her initial ER evaluation. The patient continues to remain medically suitable for social disposition Of note, this patient had an MRI of her brain in April 2021 which was negative for acute findings. She also had a CT angiogram head and neck which was negative for large vessel occlusion. She also had an EEG which demonstrated no evidence of epilepsy or seizures. I have reconciled her home medications. It appears that she will be placed in a residential on Sunday, when her sister supplies $200 to the group homes 3d animator. Vital Signs 06/22/21 06/22/21 06/22/21 10:57 14:33 20:00 Temperature 97.7 F 97.5 F L Pulse Rate 95 H 54 L Respiratory 19 16 Rate Blood Pressure 140/80 112/60 [Left] O2 Sat by Pulse 95 95 97 Oximetry 06/23/21 06/23/21 06/23/21 02:54 06:25 21:56 Temperature 97.4 F L 97.7 F Pulse Rate 72 56 L Respiratory 18 16 Rate Blood Pressure 115/100 120/90 129/89 [Left] O2 Sat by Pulse 98 98 Oximetry 06/24/21 06/24/21 02:58 05:46 Temperature 97.4 F L Pulse Rate 52 L Respiratory 16 Rate Blood Pressure 125/53 [Left] O2 Sat by Pulse 96 98 Oximetry Lab Results 06/22/21 06/22/21 06/22/21 Range/Units 14:55 14:55 14:55 WBC 6.9 (4.5-11.0) K/mm3 RBC 5.94 H (3.65-5.03) M/mm3 Hgb 13.2 (10.1-14.3) gm/dl Hct 42.7 (30.3-42.9) % MCV 72 L (79-97) fl MCH 22 L (28-32) pg MCHC 31 (30-34) % RDW 17.4 H (13.2-15.2) % Plt Count 130 L (140-440) K/mm3 Sodium 143 (137-145) mmol/L Potassium 4.4 (3.6-5.0) mmol/L Chloride 104.8 (98-107) mmol/L Carbon Dioxide 28 (22-30) mmol/L Anion Gap 15 mmol/L BUN 17 (7-17) mg/dL Creatinine 0.9 (0.6-1.2) mg/dL Estimated GFR > 60 ml/min BUN/Creatinine Ratio 19 % Glucose 124 H (65-100) mg/dL Calcium 9.6 (8.4-10.2) mg/dL Total Bilirubin 0.30 (0.1-1.2) mg/dL AST 9 (5-40) units/L ALT < 5 L (7-56) units/L Alkaline Phosphatase 85 (35-129) units/L Total Protein 7.3 (6.3-8.2) g/dL Albumin 3.9 (3.9-5) g/dL Albumin/Globulin Ratio 1.1 % Urine Color (Yellow) Urine Turbidity (Clear) Urine pH (5.0-7.0) Ur Specific [place] (1.003-1.030) Urine Protein (Negative) mg/dL Urine Glucose (UA) (Negative) mg/dL Urine Ketones (Negative) mg/dL Urine Blood (Negative) Urine Nitrite (Negative) Urine Bilirubin (Negative) Urine Urobilinogen (<2.0) mg/dL Ur Leukocyte Esterase (Negative) Urine WBC (Auto) (0.0-6.0) /HPF Urine RBC (Auto) (0.0-6.0) /HPF U Epithel Cells (Auto) (0-13.0) /HPF Urine Bacteria (Auto) (Negative) /HPF Urine Mucus /HPF Urine Yeast (Budding) /HPF Urine Opiates Screen Urine Methadone Screen Ur Barbiturates Screen Ur Phencyclidine Scrn Ur Amphetamines Screen U Benzodiazepines Scrn Urine Cocaine Screen U Marijuana (THC) Screen Drugs of Abuse Note Plasma/Serum Alcohol < 0.01 (0-0.07) % 06/22/21 06/22/21 Range/Units 18:09 18:09 WBC (4.5-11.0) K/mm3 RBC (3.65-5.03) M/mm3 Hgb (10.1-14.3) gm/dl Hct (30.3-42.9) % MCV (79-97) fl MCH (28-32) pg MCHC (30-34) % RDW (13.2-15.2) % Plt Count (140-440) K/mm3 Sodium (137-145) mmol/L Potassium (3.6-5.0) mmol/L Chloride (98-107) mmol/L Carbon Dioxide (22-30) mmol/L Anion Gap mmol/L BUN (7-17) mg/dL Creatinine (0.6-1.2) mg/dL Estimated GFR ml/min BUN/Creatinine Ratio % Glucose (65-100) mg/dL Calcium (8.4-10.2) mg/dL Total Bilirubin (0.1-1.2) mg/dL AST (5-40) units/L ALT (7-56) units/L Alkaline Phosphatase (35-129) units/L Total Protein (6.3-8.2) g/dL Albumin (3.9-5) g/dL Albumin/Globulin Ratio % Urine Color Yellow (Yellow) Urine Turbidity Slightly-cloudy (Clear) Urine pH 5.0 (5.0-7.0) Ur Specific [place] 1.017 (1.003-1.030) Urine Protein <15 mg/dl (Negative) mg/dL Urine Glucose (UA) Neg (Negative) mg/dL Urine Ketones Neg (Negative) mg/dL Urine Blood Sm (Negative) Urine Nitrite Neg (Negative) Urine Bilirubin Neg (Negative) Urine Urobilinogen 4.0 (<2.0) mg/dL Ur Leukocyte Esterase Neg (Negative) Urine WBC (Auto) 4.0 (0.0-6.0) /HPF Urine RBC (Auto) 1.0 (0.0-6.0) /HPF U Epithel Cells (Auto) 4.0 (0-13.0) /HPF Urine Bacteria (Auto) 1+ (Negative) /HPF Urine Mucus Few /HPF Urine Yeast (Budding) Few /HPF Urine Opiates Screen Negative Urine Methadone Screen Negative Ur Barbiturates Screen Negative Ur Phencyclidine Scrn Negative Ur Amphetamines Screen Negative U Benzodiazepines Scrn Negative Urine Cocaine Screen Negative U Marijuana (THC) Screen Negative Drugs of Abuse Note Disclamer Plasma/Serum Alcohol (0-0.07) %
[2021-06-24] MEDS: DIVALPROEX ER 500 MG TAB PO SCH (23:35)
[2021-06-24] MEDS: traZODone 50 MG TAB PO SCH (23:35)
[2021-06-24] MEDS: BENZTROPINE 0.5 MG TAB PO SCH (23:35)
[2021-06-24] MEDS: metFORMIN 500 MG TAB PO SCH (23:36)
[2021-06-24] MEDS: risperiDONE 3 MG TAB PO SCH (23:36)
--- NOTE | 2021-06-25 12:04 | Event Note ---
Date: 06/25/21 The patient was evaluated in the emergency department for symptoms described in the history of present illness. He/she was evaluated in the context of the global COVID-19 pandemic, which necessitated consideration that the patient might be at risk for infection with the virus that causes COVID-19. Institutional protocols and algorithms that pertain to the evaluation of patients at risk for COVID-19 are in a state of rapid change based on information released by regulatory bodies including the CDC and federal and state organizations. These policies and algorithms were followed during the patient's care in the emergency department. Please note that these policies, procedures and recommendations changed on a rapid basis. Laboratory studies, vital signs, nursing documentation, ER documentation, and psychiatric documentation are reviewed and appreciated. Nursing team reports no acute events this morning or concerns. The patient is awake and ambulating and does not appear to be in any acute distress. The patient was not found to have an emergent medical condition during her initial ER evaluation. She is pending social disposition and placement at this time. Current plan is to have the sister pay for her halfway, on Sunday, in 2 days. Vital Signs 06/22/21 06/22/21 06/22/21 10:57 14:33 20:00 Temperature 97.7 F 97.5 F L Pulse Rate 95 H 54 L Respiratory 19 16 Rate Blood Pressure 140/80 112/60 [Left] O2 Sat by Pulse 95 95 97 Oximetry 06/23/21 06/23/21 06/23/21 02:54 06:25 21:56 Temperature 97.4 F L 97.7 F Pulse Rate 72 56 L Respiratory 18 16 Rate Blood Pressure 115/100 120/90 129/89 [Left] O2 Sat by Pulse 98 98 Oximetry 06/24/21 06/24/21 06/24/21 02:58 05:46 19:45 Temperature 97.4 F L 97.8 F Pulse Rate 52 L 86 Respiratory 16 18 Rate Blood Pressure 125/53 [Left] O2 Sat by Pulse 96 98 97 Oximetry 06/24/21 21:43 Temperature Pulse Rate Respiratory Rate Blood Pressure [Left] O2 Sat by Pulse 97 Oximetry Lab Results 06/22/21 06/22/21 06/22/21 Range/Units 14:55 14:55 14:55 WBC 6.9 (4.5-11.0) K/mm3 RBC 5.94 H (3.65-5.03) M/mm3 Hgb 13.2 (10.1-14.3) gm/dl Hct 42.7 (30.3-42.9) % MCV 72 L (79-97) fl MCH 22 L (28-32) pg MCHC 31 (30-34) % RDW 17.4 H (13.2-15.2) % Plt Count 130 L (140-440) K/mm3 Sodium 143 (137-145) mmol/L Potassium 4.4 (3.6-5.0) mmol/L Chloride 104.8 (98-107) mmol/L Carbon Dioxide 28 (22-30) mmol/L Anion Gap 15 mmol/L BUN 17 (7-17) mg/dL Creatinine 0.9 (0.6-1.2) mg/dL Estimated GFR > 60 ml/min BUN/Creatinine Ratio 19 % Glucose 124 H (65-100) mg/dL Calcium 9.6 (8.4-10.2) mg/dL Total Bilirubin 0.30 (0.1-1.2) mg/dL AST 9 (5-40) units/L ALT < 5 L (7-56) units/L Alkaline Phosphatase 85 (35-129) units/L Total Protein 7.3 (6.3-8.2) g/dL Albumin 3.9 (3.9-5) g/dL Albumin/Globulin Ratio 1.1 % Urine Color (Yellow) Urine Turbidity (Clear) Urine pH (5.0-7.0) Ur Specific [place] (1.003-1.030) Urine Protein (Negative) mg/dL Urine Glucose (UA) (Negative) mg/dL Urine Ketones (Negative) mg/dL Urine Blood (Negative) Urine Nitrite (Negative) Urine Bilirubin (Negative) Urine Urobilinogen (<2.0) mg/dL Ur Leukocyte Esterase (Negative) Urine WBC (Auto) (0.0-6.0) /HPF Urine RBC (Auto) (0.0-6.0) /HPF U Epithel Cells (Auto) (0-13.0) /HPF Urine Bacteria (Auto) (Negative) /HPF Urine Mucus /HPF Urine Yeast (Budding) /HPF Urine Opiates Screen Urine Methadone Screen Ur Barbiturates Screen Ur Phencyclidine Scrn Ur Amphetamines Screen U Benzodiazepines Scrn Urine Cocaine Screen U Marijuana (THC) Screen Drugs of Abuse Note Plasma/Serum Alcohol < 0.01 (0-0.07) % 06/22/21 06/22/21 Range/Units 18:09 18:09 WBC (4.5-11.0) K/mm3 RBC (3.65-5.03) M/mm3 Hgb (10.1-14.3) gm/dl Hct (30.3-42.9) % MCV (79-97) fl MCH (28-32) pg MCHC (30-34) % RDW (13.2-15.2) % Plt Count (140-440) K/mm3 Sodium (137-145) mmol/L Potassium (3.6-5.0) mmol/L Chloride (98-107) mmol/L Carbon Dioxide (22-30) mmol/L Anion Gap mmol/L BUN (7-17) mg/dL Creatinine (0.6-1.2) mg/dL Estimated GFR ml/min BUN/Creatinine Ratio % Glucose (65-100) mg/dL Calcium (8.4-10.2) mg/dL Total Bilirubin (0.1-1.2) mg/dL AST (5-40) units/L ALT (7-56) units/L Alkaline Phosphatase (35-129) units/L Total Protein (6.3-8.2) g/dL Albumin (3.9-5) g/dL Albumin/Globulin Ratio % Urine Color Yellow (Yellow) Urine Turbidity Slightly-cloudy (Clear) Urine pH 5.0 (5.0-7.0) Ur Specific [place] 1.017 (1.003-1.030) Urine Protein <15 mg/dl (Negative) mg/dL Urine Glucose (UA) Neg (Negative) mg/dL Urine Ketones Neg (Negative) mg/dL Urine Blood Sm (Negative) Urine Nitrite Neg (Negative) Urine Bilirubin Neg (Negative) Urine Urobilinogen 4.0 (<2.0) mg/dL Ur Leukocyte Esterase Neg (Negative) Urine WBC (Auto) 4.0 (0.0-6.0) /HPF Urine RBC (Auto) 1.0 (0.0-6.0) /HPF U Epithel Cells (Auto) 4.0 (0-13.0) /HPF Urine Bacteria (Auto) 1+ (Negative) /HPF Urine Mucus Few /HPF Urine Yeast (Budding) Few /HPF Urine Opiates Screen Negative Urine Methadone Screen Negative Ur Barbiturates Screen Negative Ur Phencyclidine Scrn Negative Ur Amphetamines Screen Negative U Benzodiazepines Scrn Negative Urine Cocaine Screen Negative U Marijuana (THC) Screen Negative Drugs of Abuse Note Disclamer Plasma/Serum Alcohol (0-0.07) % .
[2021-06-25] MEDS: amLODIPine 5 MG TAB PO SCH (13:25)
[2021-06-25] MEDS: DIVALPROEX ER 500 MG TAB PO SCH ×2 (13:26→22:21)
[2021-06-25] MEDS: metFORMIN 500 MG TAB PO SCH ×2 (13:26→22:22)
[2021-06-25] MEDS: BENZTROPINE 0.5 MG TAB PO SCH ×2 (13:26→22:21)
[2021-06-25] MEDS: ASPIRIN EC 81 MG TAB PO SCH (13:27)
[2021-06-25] MEDS: risperiDONE 3 MG TAB PO SCH (22:22)
[2021-06-25] MEDS: traZODone 50 MG TAB PO SCH (22:22)
[2021-06-26] MEDS: amLODIPine 5 MG TAB PO SCH (11:15)
[2021-06-26] MEDS: BENZTROPINE 0.5 MG TAB PO SCH ×2 (11:16→22:15)
[2021-06-26] MEDS: DIVALPROEX ER 500 MG TAB PO SCH ×2 (11:16→22:15)
[2021-06-26] MEDS: metFORMIN 500 MG TAB PO SCH ×2 (11:16→22:15)
[2021-06-26] MEDS: ASPIRIN EC 81 MG TAB PO SCH (11:16)
--- NOTE | 2021-06-26 12:36 | Event Note ---
Date: 06/26/21 65-year-old female with dementia and other medical problems here after she was kicked out of her prison. She was evaluated by my colleague and it was determined that she did not have an emergent medical condition. However, she is awaiting case management placement. Vital signs reviewed and are stable. No acute events overnight.
[2021-06-26] MEDS: traZODone 50 MG TAB PO SCH (22:15)
[2021-06-26] MEDS: risperiDONE 3 MG TAB PO SCH (22:15)
[2021-06-27] MEDS: BENZTROPINE 0.5 MG TAB PO SCH ×2 (09:53→23:00)
[2021-06-27] MEDS: DIVALPROEX ER 500 MG TAB PO SCH ×2 (09:53→23:00)
[2021-06-27] MEDS: amLODIPine 5 MG TAB PO SCH (09:53)
[2021-06-27] MEDS: metFORMIN 500 MG TAB PO SCH ×2 (09:53→23:00)
--- NOTE | 2021-06-27 10:33 | Electrocardiograph Report ---
[facility] Test Date: 2021-06-24 Test Time: 01:13:23 Pat Name: LATOSHA ALEMAN Department: Room: Gender: F Salon Manager: ARTI : [id number] Requested By: MARVA GÓMEZ Order Number: [id number] Reading MD: Sandra Bowling Measurements Intervals [place] Rate: 55 P: 60 NH: 113 QRS: 40 QRSD: 88 T: 65 QT: 406 QTc: 390 Interpretive Statements Sinus bradycardia Frequent PACs Probable left atrial enlargement Compared to ECG 04/04/2021 09:58:32 Sinus rhythm has replaced atrial fibrillation Electronically Signed On 06-27-2021 10:33:43 EST by Sandra Bowling
--- NOTE | 2021-06-27 12:06 | Emergency Department Report ---
Blank Doc - Documentation Documentation: 65-year-old female deemed not to have an emergent condition and currently in the ED awaiting placement by case management. Apparently patient requires a Covid test prior to placement and family members need to arrange for payment tomorrow prior to acceptance. Covid test collection pending.
[2021-06-27] MEDS: risperiDONE 3 MG TAB PO SCH (23:00)
[2021-06-27] MEDS: traZODone 50 MG TAB PO SCH (23:00)
[2021-06-28] MEDS: ASPIRIN EC 81 MG TAB PO SCH (11:00)
[2021-06-28] MEDS: metFORMIN 500 MG TAB PO SCH ×2 (11:00→23:20)
[2021-06-28] MEDS: BENZTROPINE 0.5 MG TAB PO SCH ×2 (11:00→23:19)
[2021-06-28] MEDS: DIVALPROEX ER 500 MG TAB PO SCH ×2 (11:00→23:20)
--- NOTE | 2021-06-28 13:53 | Event Note ---
Vital signs are stable. Patient is medically clear for placement.
[2021-06-28] MEDS: amLODIPine 5 MG TAB PO SCH (15:05)
[2021-06-28 20:12] VITALS: BP 121/81
[2021-06-28] MEDS: risperiDONE 3 MG TAB PO SCH (23:20)
[2021-06-28] MEDS: traZODone 50 MG TAB PO SCH (23:20)
--- NOTE | 2021-06-29 08:04 | Emergency Department Report ---
Blank Doc - Documentation Documentation: I was informed by high school social studies teacher patient has receiving housing placement and aw aiting transport. Discharge orders placed
== END 2021-06-29 18:41 | disposition home or self-care (01) ==
LOC: ED 10:56
DX: R41.0 Disorientation, unspecified (principal); G89.29 Other chronic pain; I10 Essential (primary) hypertension; Z20.822 Contact with and (suspected) exposure to COVID-19; E11.9 Type 2 diabetes mellitus without complications; F31.9 Bipolar disorder, unspecified; F20.9 Schizophrenia, unspecified; E78.00 Pure hypercholesterolemia, unspecified
CPT/HCPCS: 36415; 80053; 80307; 81001; 82962; 85027; 93005; 96372; 99284; J2060; U0003; 80320; G0480